=== PATIENT | male | born 1975 | race Caucasian/White ===

== ENCOUNTER 2017-01-18 10:36 | Emergency (ER) | payer MEDICARE, OTHER ==
[2017-01-18 10:46] VITALS: TEMP 98.1
[2017-01-18] MEDS ORDERED: IPRATROPIUM-ALBUTEROL 3 ML NEB INHALATION STA (11:45)
--- NOTE | 2017-01-18 12:21 | XR ---
EXAMINATION TYPE: XR chest 2V DATE OF EXAM: 01/18/2017 COMPARISON: 11/16/2015 INDICATION: Difficulty breathing chest pressure TECHNIQUE: Frontal and lateral views of the chest are obtained. FINDINGS: The heart size is normal. The pulmonary vasculature is normal. The lungs are clear. IMPRESSION: 1. No acute pulmonary process.
[2017-01-18 12:22] LABS: Basophils # (A) 0.1 k/uL (0-0.2); Basophils % (A) 0 %; CH 29.4; CHCM 34.1; Eosinophils % (A) 0 %; HCT 43.7 % (39.0-53.0); HDW 2.41; HGB 14.4 gm/dL (13.0-17.5); Luc # (Auto) 0.14; Luc % (Auto) 1; Lymphocytes # (A) 2.6 k/uL (1.0-4.8); Lymphocytes % (A) 20 %; MCH 28.4 pg (25.0-35.0); MCHC 32.9 g/dL (31.0-37.0); MCV 86.4 fL (80.0-100.0); Mean Platelet Volume 6.7; Monocytes # (A) 0.7 k/uL (0-1.0); Monocytes % (A) 5 %; Neutrophils # (A) 9.5 k/uL (1.3-7.7); Neutrophils % (A) 73 %; RBC 5.06 m/uL (4.30-5.90); RDW 13.4 % (11.5-15.5); WBC 12.9 k/uL (3.8-10.6); WBC (Perox) 12.84
[2017-01-18 12:35] LABS: ALT 43 U/L (21-72); AST 22 U/L (17-59); Alkaline Phosphatase 89 U/L (38-126); Anion Gap 12 mmol/L; Blood Urea Nitrogen 12 mg/dL (9-20); Calcium 9.4 mg/dL (8.4-10.2); Carbon Dioxide 26 mmol/L (22-30); Chloride 101 mmol/L (98-107); Glucose 92 mg/dL (74-99); Non-African American GFR(MDRD) >60 (>60 ml/min/1.73 sqM); Potassium 4.3 mmol/L (3.5-5.1); Sodium 139 mmol/L (137-145); Total Bilirubin 1.5 mg/dL (0.2-1.3); Total Protein 7.7 g/dL (6.3-8.2)
[2017-01-18 12:43] LABS: Partial Thromboplastin Time 24.8 sec (22.0-30.0); Prothrombin Time 10.5 sec (9.0-12.0)
[2017-01-18 12:50] LABS: Creatine Kinase 70 U/L (55-170)
[2017-01-18 13:03] LABS: Creatine Kinase MB <0.2 ng/mL (0.0-2.4); Troponin I <0.012 ng/mL (0.000-0.034)
--- NOTE | 2017-01-18 14:06 | ED ---
SOB HPI - General Chief Complaint: Shortness of Breath Stated Complaint: hypertension/sob Time Seen by Provider: 01/18/17 11:38 Source: patient Mode of arrival: ambulatory Limitations: no limitations - History of Present Illness Initial Comments: This 41-year-old white male presents with with the complaint of some shortness of breath. The onset occurred this morning. He is had a slight cough but no production. He denies any fevers or chills. He denies any leg pain or swelling or history of DVT or PE. There has been no chest pain. He relates a significant cardiac history. He apparently has had 2 or 3 myocardial infarctions and 5 stents since the age of 34. He is had atypical presentations for his previous cardiac events as well. He apparently went into cardiac arrest last year. He denies any other complaints or modifying factors. He denies any history of asthma or COPD. He quit smoking somewhat recently. - Related Data Home Medications Medication Instructions Recorded Confirmed Hydrocodone/Acetaminophen [[place] 2 tab PO QID 04/28/14 01/18/17 10-325] Cholecalciferol [Vitamin D3] 2,000 unit PO DAILY 11/16/15 01/18/17 Lisinopril [Zestril] 5 mg PO DAILY 11/16/15 01/18/17 Ranitidine HCl [Zantac] 300 mg PO BID 01/18/17 01/18/17 Rosuvastatin Calcium [Crestor] 5 mg PO HS 01/18/17 01/18/17 Previous Rx's Medication Instructions Recorded Aspirin 325 mg PO DAILY #30 tab 04/30/14 ALPRAZolam [Xanax] 0.5 mg PO TID PRN #60 tablet 07/16/15 Nitroglycerin Sl Tabs [Nitrostat] 0.4 mg SUBLINGUAL Q5M PRN #60 tab 07/16/15 Prasugrel [Effient] 10 mg PO DAILY #30 tab 07/16/15 Albuterol Sulfate [Proair Hfa] 1 - 2 puff INHALATION Q6HR PRN #1 01/18/17 inhaler Allergies Allergy/AdvReac Type Severity Reaction Status Date / Time amoxicillin [Amoxicillin] Allergy yeast Verified 01/18/17 12:01 infection Review of Systems ROS Statement: Those systems with pertinent positive or pertinent negative responses have been documented in the HPI. ROS Other: All systems not noted in ROS Statement are negative. Past Medical History Past Medical History: Coronary Artery Disease (CAD), Chest Pain / Angina, GERD/ Reflux, Hypertension, Myocardial Infarction ([place]), Osteoarthritis (OA) Additional Past Medical History / Comment(s): 07-14-15 admitted with stemi, cardiac arrest v-fib. other past med hx includes: KIDNEY STONES, DDD, PAST WORK INJURY 800 POUND I BEAM DROPPED ON PT- BROKEN BACK.BUT PT REFUSED SX, PT STATED THAT PER AN MRI HE HAD THAT NOW THERE ARE 3 TUMORS GROWING IN AREA OF INJURY? . Last Myocardial Infarction Date:: 2010, 07-14-15 History of Any Multi-Drug Resistant Organisms: None Reported Past Surgical History: Heart Catheterization With Stent Additional Past Surgical History / Comment(s): Two stents in 2010 and re-done 2013. 07-14-15 stent to rca Past Anesthesia/Blood Transfusion Reactions: No Reported Reaction Additional Past Anesthesia/Blood Transfusion Reaction / Comment(s): CLAUSTERPHOBIA Date of Last Stent Placement:: 2013 Past Psychological History: ADD/ADHD, Anxiety, Depression Smoking Status: Former smoker Past Alcohol Use History: None Reported Past Drug Use History: None Reported - Past Family History Father Family Medical History: Coronary Artery Disease (CAD), Hyperlipidemia, Myocardial Infarction (CO) Additional Family Medical History / Comment(s): Had 3 triple bypass surg Mother Family Medical History: Coronary Artery Disease (CAD) Additional Family Medical History / Comment(s): History of stents General Exam - General Exam Comments Initial Comments: GENERAL: The patient is well nourished and well hydrated. VITAL SIGNS: Heart rate, blood pressure, respiratory rate reviewed as recorded in nurse's notes. EYES: Pupils are round and reactive. Extraocular movements are intact. No conjunctival / lid redness or swelling. ENT: No external evidence of injury, swelling, or ecchymosis. Airway is patent. Throat is clear. NECK: Nontender. No swelling or evidence of injury. No subcutaneous emphysema. Trachea is midline. No thyroid mass. HEART: Regular rate and rhythm. Good peripheral pulses. LUNGS/CHEST: Breath sounds clear and equal bilaterally. No rales, rhonchi, or wheezes. No ecchymosis, subcutaneous emphysema, or tenderness. ABDOMEN: Abdomen soft without tenderness. No palpable masses or organomegaly. No peritoneal signs. No abdominal wall swelling or ecchymosis. EXTREMITIES: No extremity tenderness. Normal muscle tone and function. No thoracolumbar tenderness. NEUROLOGIC: Sensation is grossly intact. Cranial nerve exam reveals face is symmetrical, tongue is midline, speech is clear. SKIN: No abrasions or ecchymosis is noted. No induration or masses noted. PSYCHIATRIC: Alert and oriented. Appropriate behavior and judgment. Limitations: no limitations Course Vital Signs 01/18/17 01/18/17 01/18/17 10:42 12:19 12:32 Temperature 98.1 F Pulse Rate 63 56 L 62 Respiratory 20 Rate Blood Pressure 143/84 O2 Sat by Pulse 99 Oximetry Medical Decision Making - Medical Decision Making The patient was seen and examined. All diagnostics were reviewed. EKG shows a sinus bradycardia at a rate of 55. No acute ST-T wave changes are identified. The SD interval is 136, the QRS duration is 96, and the QTc interval is 399. He received a breathing treatment with moderate relief. He also had a chest x- ray which did not show any acute processes. The laboratory is essentially unremarkable. The exact cause of his dizziness he is not definitively determined. Possibility of a early upper is poor infection or bronchitis early is possible. The possibility of an atypical cardiac ischemia certainly is possible as well. He was offered admission to the hospital, especially in light of his significant cardiac history, for further cardiac workup. He refuses. Risks and benefits were discussed with him and his . He states that he would still not want to stay in the hospital but will return if his symptoms do worsen. He is alert and lucid and medical decision-making is intact to refuse further treatment to rule out a cardiac etiology. He leaves in no identifiable distress. - Lab Data Result diagrams: 01/18/17 12:07 01/18/17 12:07 Lab Results 01/18/17 01/18/17 01/18/17 Range/Units 12:07 12:07 12:07 WBC 12.9 H (3.8-10.6) k/uL RBC 5.06 (4.30-5.90) m/uL Hgb 14.4 (13.0-17.5) gm/dL Hct 43.7 (39.0-53.0) % MCV 86.4 (80.0-100.0) fL MCH 28.4 (25.0-35.0) pg MCHC 32.9 (31.0-37.0) g/dL RDW 13.4 (11.5-15.5) % Plt Count 338 (150-450) k/uL Neutrophils % 73 % Lymphocytes % 20 % Monocytes % 5 % Eosinophils % 0 % Basophils % 0 % Neutrophils # 9.5 H (1.3-7.7) k/uL Lymphocytes # 2.6 (1.0-4.8) k/uL Monocytes # 0.7 (0-1.0) k/uL Eosinophils # 0.0 (0-0.7) k/uL Basophils # 0.1 (0-0.2) k/uL PT (9.0-12.0) sec INR (<1.2) APTT (22.0-30.0) sec D-Dimer (<0.60) mg/L FEU Sodium 139 (137-145) mmol/L Potassium 4.3 (3.5-5.1) mmol/L Chloride 101 (98-107) mmol/L Carbon Dioxide 26 (22-30) mmol/L Anion Gap 12 mmol/L BUN 12 (9-20) mg/dL Creatinine 0.74 (0.66-1.25) mg/dL Est GFR (MDRD) Af Amer >60 (>60 ml/min/1.73 sqM) Est GFR (MDRD) Non-Af >60 (>60 ml/min/1.73 sqM) Glucose 92 (74-99) mg/dL Calcium 9.4 (8.4-10.2) mg/dL Total Bilirubin 1.5 H (0.2-1.3) mg/dL AST 22 (17-59) U/L ALT 43 (21-72) U/L Alkaline Phosphatase 89 (38-126) U/L Total Creatine Kinase 70 (55-170) U/L CK-MB (CK-2) <0.2 (0.0-2.4) ng/mL CK-MB (CK-2) Rel Index Troponin I <0.012 (0.000-0.034) ng/mL NT-Pro-B Natriuret Pep pg/mL Total Protein 7.7 (6.3-8.2) g/dL Albumin 4.7 (3.5-5.0) g/dL 01/18/17 01/18/17 Range/Units 12:07 12:07 WBC (3.8-10.6) k/uL RBC (4.30-5.90) m/uL Hgb (13.0-17.5) gm/dL Hct (39.0-53.0) % MCV (80.0-100.0) fL MCH (25.0-35.0) pg MCHC (31.0-37.0) g/dL RDW (11.5-15.5) % Plt Count (150-450) k/uL Neutrophils % % Lymphocytes % % Monocytes % % Eosinophils % % Basophils % % Neutrophils # (1.3-7.7) k/uL Lymphocytes # (1.0-4.8) k/uL Monocytes # (0-1.0) k/uL Eosinophils # (0-0.7) k/uL Basophils # (0-0.2) k/uL PT 10.5 (9.0-12.0) sec INR 1.0 (<1.2) APTT 24.8 (22.0-30.0) sec D-Dimer <0.17 (<0.60) mg/L FEU Sodium (137-145) mmol/L Potassium (3.5-5.1) mmol/L Chloride (98-107) mmol/L Carbon Dioxide (22-30) mmol/L Anion Gap mmol/L BUN (9-20) mg/dL Creatinine (0.66-1.25) mg/dL Est GFR (MDRD) Af Amer (>60 ml/min/1.73 sqM) Est GFR (MDRD) Non-Af (>60 ml/min/1.73 sqM) Glucose (74-99) mg/dL Calcium (8.4-10.2) mg/dL Total Bilirubin (0.2-1.3) mg/dL AST (17-59) U/L ALT (21-72) U/L Alkaline Phosphatase (38-126) U/L Total Creatine Kinase (55-170) U/L CK-MB (CK-2) (0.0-2.4) ng/mL CK-MB (CK-2) Rel Index Troponin I (0.000-0.034) ng/mL NT-Pro-B Natriuret Pep 23 pg/mL Total Protein (6.3-8.2) g/dL Albumin (3.5-5.0) g/dL Disposition Clinical Impression: Dyspnea, History of coronary artery disease Disposition: HOME SELF-CARE Condition: Good Instructions: Dyspnea (ED) Prescriptions: Albuterol Sulfate [Proair Hfa] 1 - 2 puff INHALATION Q6HR PRN #1 inhaler PRN Reason: Shortness Of Breath Or Wheezing Referrals: Gilberto Figueroa MD [Primary Care Provider] - 1-2 days Time of Disposition: 14:05
[2017-01-18 14:17] VITALS: BP 128/74; PULSE 74; RESP 16
== END 2017-01-18 14:16 | disposition home or self-care (01) ==
LOC: EC 10:36
DX: R06.00 Dyspnea, unspecified (principal); I25.10 Atherosclerotic heart disease of native coronary artery without angina pectoris; K21.9 Gastro-esophageal reflux disease without esophagitis; I10 Essential (primary) hypertension; I25.2 Old myocardial infarction; Z87.891 Personal history of nicotine dependence; Z88.0 Allergy status to penicillin; Z95.5 Presence of coronary angioplasty implant and graft; Z79.899 Other long term (current) drug therapy
CPT/HCPCS: 36415; 71020; 80053; 82550; 82553; 83880; 84484; 85025; 85379; 85610; 85730; 87040; 93005; 94640; 99285

== ENCOUNTER 2017-09-02 17:42 | Emergency (ER) | payer MEDICARE, OTHER ==
[2017-09-02] MEDS ORDERED: SODIUM CHLORIDE 0.9% 1,000 ML IV STA (18:04)
--- NOTE | 2017-09-02 18:10 | ED ---
General Adult HPI <Rodríguez Toledo - Last Filed: 09/02/17 21:38> - General Source: patient, RN notes reviewed Mode of arrival: ambulatory Limitations: no limitations <Tawny Lal - Last Filed: 09/02/17 21:39> - General Chief complaint: Shortness of Breath Stated complaint: MARK Time Seen by Provider: 09/02/17 17:58 - History of Present Illness Initial comments: 42-year-old male presents to the emergency department with a chief complaint of shortness of breath and chest heaviness. Patient has a history of ND at age 34. Patient states she's had some shortness of breath for the last week or so. He states today it seemed to get worse. He states just hasn't irritation into his chest and describes it as a heaviness. He states when he had an ND and issues with breathing as well so he was concerned. He states he has been taking his medications as prescribed. He denies any nausea vomiting or sweating. He does admit to history of acid reflux and states he has had some burning with that as well. They were concerned due to his symptoms without that he should be seen. Patient denies any recent fever, chills, back pain, abdominal pain, nausea vomiting, numbness or tingling, dysuria or hematuria, constipation or diarrhea, headaches or visual changes, or any other current symptoms. (Tawny Lal) - Related Data Home Medications Medication Instructions Recorded Confirmed Hydrocodone/Acetaminophen [[place] 1 tab PO Q4H PRN 04/28/14 09/02/17 10-325] Lisinopril [Zestril] 5 mg PO QAM 11/16/15 09/02/17 Aspirin 325 mg PO QAM 09/02/17 09/02/17 Pantoprazole Sodium [Protonix] 40 mg PO BID 09/02/17 09/02/17 Prasugrel [Effient] 10 mg PO QAM 09/02/17 09/02/17 Rosuvastatin [Crestor] 10 mg PO HS 09/02/17 09/02/17 Allergies Allergy/AdvReac Type Severity Reaction Status Date / Time amoxicillin [Amoxicillin] Allergy yeast Verified 09/02/17 18:06 infection Review of Systems ROS Other: All systems not noted in ROS Statement are negative. <Rodríguez Toledo - Last Filed: 09/02/17 21:38> ROS Other: All systems not noted in ROS Statement are negative. <Tawny Lal - Last Filed: 09/02/17 21:39> ROS Statement: Those systems with pertinent positive or pertinent negative responses have been documented in the HPI. Past Medical History Past Medical History: Coronary Artery Disease (CAD), Chest Pain / Angina, GERD/ Reflux, Hypertension, Myocardial Infarction (ND), Osteoarthritis (OA) Additional Past Medical History / Comment(s): 07-14-15 admitted with stemi, cardiac arrest v-fib. other past med hx includes: KIDNEY STONES, DDD, PAST WORK INJURY 800 POUND I BEAM DROPPED ON PT- BROKEN BACK.BUT PT REFUSED SX, PT STATED THAT PER AN MRI HE HAD THAT NOW THERE ARE 3 TUMORS GROWING IN AREA OF INJURY? . Last Myocardial Infarction Date:: 2010, 07-14-15 History of Any Multi-Drug Resistant Organisms: None Reported Past Surgical History: Heart Catheterization With Stent Additional Past Surgical History / Comment(s): Two stents in 2010 and re-done 2013. 07-14-15 stent to rca Past Anesthesia/Blood Transfusion Reactions: No Reported Reaction Additional Past Anesthesia/Blood Transfusion Reaction / Comment(s): CLAUSTERPHOBIA Date of Last Stent Placement:: 2013 Past Psychological History: ADD/ADHD, Anxiety, Depression Smoking Status: Former smoker Past Alcohol Use History: None Reported Past Drug Use History: None Reported - Past Family History Father Family Medical History: Coronary Artery Disease (CAD), Hyperlipidemia, Myocardial Infarction (ND) Additional Family Medical History / Comment(s): Had 3 triple bypass surg Mother Family Medical History: Coronary Artery Disease (CAD) Additional Family Medical History / Comment(s): History of stents <Tawny Lal - Last Filed: 09/02/17 21:39> General Exam <Rodríguez Toledo - Last Filed: 09/02/17 21:38> Limitations: no limitations <Tawny Lal - Last Filed: 09/02/17 21:39> - General Exam Comments Initial Comments: General: The patient is awake and alert, in no distress, and does not appear acutely ill. Eye: Pupils are equal, round and reactive to light, extra-ocular movements are intact; there is normal conjunctiva bilaterally. No signs of icterus. Ears, nose, mouth and throat: There are moist mucous membranes and no oral lesions. Neck: The neck is supple, there is no tenderness. Cardiovascular: There is a regular rate and rhythm. No murmur, rub or gallop is appreciated. Respiratory: Lungs are clear to auscultation, respirations are non-labored, breath sounds are equal. No wheezes, stridor, rales, or rhonchi. Gastrointestinal: Soft, non-distended, non-tender abdomen without masses or organomegaly noted. There is no rebound or guarding present. No CVA tenderness. Bowel sounds are unremarkable. Back: There is no tenderness to palpation in the midline. There is no obvious deformity. No rashes noted. Musculoskeletal: Normal ROM, no tenderness, There is no pedal edema. There is no calf tenderness or swelling. Sensation intact. Pulses equal bilaterally 2+. Neurological: CN II-XII intact, There are no obvious motor or sensory deficits. Coordination appears grossly intact. Speech is normal. Skin: Skin is warm and dry and no rashes or lesions are noted. Psychiatric: Cooperative, appropriate mood & affect, normal judgment. (Tawny Lal) Course <Rodírguez Toledo - Last Filed: 09/02/17 21:38> <Tawny Lal - Last Filed: 09/02/17 21:39> Vital Signs 09/02/17 09/02/17 17:51 19:15 Temperature 97.3 F L Pulse Rate 72 59 L Respiratory 18 18 Rate Blood Pressure 138/85 111/60 O2 Sat by Pulse 98 96 Oximetry - Reevaluation(s) Reevaluation #1: 09/02/17 21:38 PA supervision: I did do a [id number] evaluation patient did discuss the findings the patient and his . Patient presentation with respective shortness of breath is very similar to when he had his heart attack in the past. Some of the symptoms are similar with his has with a respiratory infection. The patient has had intermittent episodes of chest discomfort. He currently is pain-free he will be admitted for evaluation of chest pain. I did discuss the case with (Rodríguez Toledo) EKG Findings - EKG Comments: EKG Findings:: normal sinus rhythm 71 bpm, normal axis, no atopy, no S-T depressions or elevations, incomplete right bundle branch block <Tawny Lal - Last Filed: 09/02/17 21:39> Medical Decision Making - Lab Data Result diagrams: 09/02/17 18:24 09/02/17 18:24 <Rodríguez Toledo - Last Filed: 09/02/17 21:38> - Lab Data Result diagrams: 09/02/17 18:24 09/02/17 18:24 - Radiology Data Radiology results: report reviewed, image reviewed <Tawny Lal - Last Filed: 09/02/17 21:39> - Medical Decision Making 42-year-old male presents to the emergency department with a chief complaint of shortness of breath with chest heaviness. At this time patient's lab work has been reviewed. At this time patient's history with risk factors concerns for possible cardiac cause. We will admit the patient for continued care. We discussed this with the patient for admission. Patient is agreement this plan. All questions have been answered. Patient will be admitted for cardiac rule out at this time. (Tawny Lal) - Lab Data Lab Results 09/02/17 09/02/17 09/02/17 Range/Units 18:24 18:24 18:24 WBC 10.0 (3.8-10.6) k/uL RBC 5.10 (4.30-5.90) m/uL Hgb 14.0 (13.0-17.5) gm/dL Hct 42.2 (39.0-53.0) % MCV 82.6 (80.0-100.0) fL MCH 27.4 (25.0-35.0) pg MCHC 33.2 (31.0-37.0) g/dL RDW 13.4 (11.5-15.5) % Plt Count 334 (150-450) k/uL Neutrophils % 66 % Lymphocytes % 27 % Monocytes % 5 % Eosinophils % 1 % Basophils % 0 % Neutrophils # 6.6 (1.3-7.7) k/uL Lymphocytes # 2.7 (1.0-4.8) k/uL Monocytes # 0.5 (0-1.0) k/uL Eosinophils # 0.1 (0-0.7) k/uL Basophils # 0.0 (0-0.2) k/uL PT (9.0-12.0) sec INR (<1.2) APTT (22.0-30.0) sec D-Dimer (<0.60) mg/L FEU Sodium 143 (137-145) mmol/L Potassium 3.9 (3.5-5.1) mmol/L Chloride 103 (98-107) mmol/L Carbon Dioxide 26 (22-30) mmol/L Anion Gap 14 mmol/L BUN 12 (9-20) mg/dL Creatinine 0.70 (0.66-1.25) mg/dL Est GFR (CKD-EPI)AfAm >90 (>60 ml/min/1.73 sqM) Est GFR (CKD-EPI)NonAf >90 (>60 ml/min/1.73 sqM) Glucose 82 (74-99) mg/dL Calcium 9.8 (8.4-10.2) mg/dL Magnesium 1.8 (1.6-2.3) mg/dL Total Bilirubin 1.9 H (0.2-1.3) mg/dL AST 28 (17-59) U/L ALT 39 (21-72) U/L Alkaline Phosphatase 92 (38-126) U/L Total Creatine Kinase 79 (55-170) U/L CK-MB (CK-2) <0.2 (0.0-2.4) ng/mL CK-MB (CK-2) Rel Index Troponin I <0.012 (0.000-0.034) ng/mL Total Protein 7.8 (6.3-8.2) g/dL Albumin 4.8 (3.5-5.0) g/dL Amylase 45 (30-110) U/L Lipase 37 (23-300) U/L 09/02/17 Range/Units 18:24 WBC (3.8-10.6) k/uL RBC (4.30-5.90) m/uL Hgb (13.0-17.5) gm/dL Hct (39.0-53.0) % MCV (80.0-100.0) fL MCH (25.0-35.0) pg MCHC (31.0-37.0) g/dL RDW (11.5-15.5) % Plt Count (150-450) k/uL Neutrophils % % Lymphocytes % % Monocytes % % Eosinophils % % Basophils % % Neutrophils # (1.3-7.7) k/uL Lymphocytes # (1.0-4.8) k/uL Monocytes # (0-1.0) k/uL Eosinophils # (0-0.7) k/uL Basophils # (0-0.2) k/uL PT 10.6 (9.0-12.0) sec INR 1.1 (<1.2) APTT 25.0 (22.0-30.0) sec D-Dimer <0.17 (<0.60) mg/L FEU Sodium (137-145) mmol/L Potassium (3.5-5.1) mmol/L Chloride (98-107) mmol/L Carbon Dioxide (22-30) mmol/L Anion Gap mmol/L BUN (9-20) mg/dL Creatinine (0.66-1.25) mg/dL Est GFR (CKD-EPI)AfAm (>60 ml/min/1.73 sqM) Est GFR (CKD-EPI)NonAf (>60 ml/min/1.73 sqM) Glucose (74-99) mg/dL Calcium (8.4-10.2) mg/dL Magnesium (1.6-2.3) mg/dL Total Bilirubin (0.2-1.3) mg/dL AST (17-59) U/L ALT (21-72) U/L Alkaline Phosphatase (38-126) U/L Total Creatine Kinase (55-170) U/L CK-MB (CK-2) (0.0-2.4) ng/mL CK-MB (CK-2) Rel Index Troponin I (0.000-0.034) ng/mL Total Protein (6.3-8.2) g/dL Albumin (3.5-5.0) g/dL Amylase (30-110) U/L Lipase (23-300) U/L Disposition <Rodríguez Toledo - Last Filed: 09/02/17 21:38> Decision Date: 09/02/17 Decision Time: 21:06 <Tawny Lal - Last Filed: 09/02/17 21:39> Clinical Impression: Unstable angina Disposition: ADMITTED IP TO THIS [facility] Condition: Stable Referrals: Gilberto Figueroa MD [REFERRING] - 1-2 days
[2017-09-02 18:33] LABS: Basophils % (A) 0 %; Eosinophils # (A) 0.1 k/uL (0-0.7); Eosinophils % (A) 1 %; HCT 42.2 % (39.0-53.0); Lymphocytes # (A) 2.7 k/uL (1.0-4.8); Lymphocytes % (A) 27 %; MCH 27.4 pg (25.0-35.0); MCHC 33.2 g/dL (31.0-37.0); MCV 82.6 fL (80.0-100.0); Mean Platelet Volume 6.7; Monocytes # (A) 0.5 k/uL (0-1.0); Monocytes % (A) 5 %; Neutrophils # (A) 6.6 k/uL (1.3-7.7); Neutrophils % (A) 66 %; Platelet Count 334 k/uL (150-450); RDW 13.4 % (11.5-15.5)
[2017-09-02 18:44] LABS: ALT 39 U/L (21-72); AST 28 U/L (17-59); Albumin 4.8 g/dL (3.5-5.0); Alkaline Phosphatase 92 U/L (38-126); Amylase 45 U/L (30-110); Anion Gap 14 mmol/L; Blood Urea Nitrogen 12 mg/dL (9-20); Calcium 9.8 mg/dL (8.4-10.2); Carbon Dioxide 26 mmol/L (22-30); Chloride 103 mmol/L (98-107); D-Dimer <0.17 mg/L FEU (<0.60); Glucose 82 mg/dL (74-99); Lipase 37 U/L (23-300); Magnesium 1.8 mg/dL (1.6-2.3); Potassium 3.9 mmol/L (3.5-5.1); Sodium 143 mmol/L (137-145); Total Bilirubin 1.9 mg/dL (0.2-1.3); Total Protein 7.8 g/dL (6.3-8.2)
[2017-09-02 18:47] LABS: Creatine Kinase 79 U/L (55-170)
[2017-09-02 18:50] LABS: INR 1.1 (<1.2); Prothrombin Time 10.6 sec (9.0-12.0)
[2017-09-02 19:00] LABS: Creatine Kinase MB <0.2 ng/mL (0.0-2.4); Troponin I <0.012 ng/mL (0.000-0.034)
[2017-09-02] MEDS: ASPIRIN 81 MG PO STA ×2 (19:14→19:20)
--- NOTE | 2017-09-02 19:45 | XR ---
EXAMINATION TYPE: XR chest 2V DATE OF EXAM: 09/02/2017 COMPARISON: 02/18/2017 HISTORY: Chest pain TECHNIQUE: Frontal and lateral views of the chest are obtained. FINDINGS: There is no focal air space opacity, pleural effusion, or pneumothorax seen. The cardiac silhouette size is mildly enlarged. The osseous structures are intact. IMPRESSION: No acute cardiopulmonary process.
[2017-09-02] MEDS ORDERED: HYDROcodone/APAP 10-325MG 1 EACH TAB PO PRN (20:09)
[2017-09-02] MEDS ORDERED: PANTOPRAZOLE 40 MG TABLET PO SCH (21:00)
[2017-09-02] MEDS ORDERED: ATORVASTATIN 20 MG TAB PO SCH (21:00)
[2017-09-02] MEDS ORDERED: NITROGLYCERIN SL TABS 0.4 MG TAB SUBLINGUAL STA (21:14)
[2017-09-02] MEDS ORDERED: MORPHINE SULFATE 4 MG/ML SYRINGE IV STA (21:25)
[2017-09-02] MEDS ORDERED: NITROGLYCERIN SL TABS 0.4 MG TAB SUBLINGUAL PRN (21:40)
[2017-09-02] MEDS ORDERED: HEPARIN SODIUM,PORCINE 5,000 UNIT/ML 1 ML VIAL IV ONE (21:40)
[2017-09-02] MEDS ORDERED: SODIUM CHLORIDE 0.9% 1,000 ML IV SCH (21:45)
[2017-09-02] MEDS ORDERED: HEPARIN SOD,PORK IN 0.45% NACL 25,000 UNIT in 0.45% NACL 1 500ML.BAG IV SCH (21:45)
[2017-09-02 22:28] VITALS: BP 114/65; PULSE 58; RESP 20; TEMP 97.8
[2017-09-03] MEDS ORDERED: NITROGLYCERIN OINT 1 INCH/GM PACKET TOPICAL SCH
[2017-09-03] MEDS ORDERED: ASPIRIN 325 MG TAB PO SCH ×2 (09:00)
[2017-09-03] MEDS ORDERED: PRASUGREL 10 MG TAB PO SCH (09:00)
[2017-09-03] MEDS ORDERED: LISINOPRIL 5 MG TAB PO SCH (09:00)
== END 2017-09-02 22:10 | disposition other institution (70) ==
LOC: SUPCPDRO 17:42 → EC 17:42 → UNDOADMOB 21:37 → 3OBS 21:37 → EC 22:10
DX: I25.110 Atherosclerotic heart disease of native coronary artery with unstable angina pectoris (principal); I10 Essential (primary) hypertension; K21.9 Gastro-esophageal reflux disease without esophagitis; M19.90 Unspecified osteoarthritis, unspecified site; I25.2 Old myocardial infarction; Z87.891 Personal history of nicotine dependence; Z79.82 Long term (current) use of aspirin; Z79.899 Other long term (current) drug therapy; Z88.0 Allergy status to penicillin; Z95.818 Presence of other cardiac implants and grafts; Z82.49 Family history of ischemic heart disease and other diseases of the circulatory system
CPT/HCPCS: 36415; 71046; 80053; 82150; 82550; 82553; 83690; 83735; 84484; 85025; 85379; 85610; 85730; 93005; 96360; 96361; 99285

== ENCOUNTER 2017-10-17 13:38 | Emergency (ER) | payer MEDICARE, OTHER ==
--- NOTE | 2017-10-17 15:59 | ED ---
Extremity Problem HPI - General Chief complaint: Extremity Problem,Nontraumatic Stated complaint: pain from groin to knee Time Seen by Provider: 10/17/17 15:34 Source: patient, RN notes reviewed Mode of arrival: ambulatory Limitations: no limitations - History of Present Illness Initial comments: This is a 42-year-old male who presents to the emergency department with chief complaint of right lower extremity pain. Patient states that at approximately 10:30 this morning he was sitting in his truck and felt a sudden onset of sharp pain in his lateral right thigh. He states that the pain was so intense that he dropped his phone and felt like he was going to be sick. He states that since that time the pain has progressed up to his groin. Denies any scrotal or testicular pain or swelling. He states that the lower half of his right lower extremity now feels numb. He states "it just doesn't feel right." Patient states that he has a history of 3 myocardial infarctions and multiple venous thromboses. He states that he is currently on Effient and has been on that for 2 years. He also reports a history of chronic low back issues. 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 He denies any injuries or trauma. Denies fever, chills, chest pain, shortness of breath, abdominal pain, nausea or vomiting, constipation or diarrhea, headache or vision changes. - Related Data Home Medications Medication Instructions Recorded Confirmed Hydrocodone/Acetaminophen [[place] 1 tab PO Q4H PRN 04/28/14 09/02/17 10-325] Lisinopril [Zestril] 5 mg PO QAM 11/16/15 09/02/17 Aspirin 325 mg PO QAM 09/02/17 09/02/17 Pantoprazole Sodium [Protonix] 40 mg PO BID 09/02/17 09/02/17 Prasugrel [Effient] 10 mg PO QAM 09/02/17 09/02/17 Rosuvastatin [Crestor] 10 mg PO HS 09/02/17 09/02/17 Previous Rx's Medication Instructions Recorded predniSONE 20 mg PO BID #8 tab 10/17/17 Allergies Allergy/AdvReac Type Severity Reaction Status Date / Time amoxicillin [Amoxicillin] Allergy yeast Verified 10/17/17 13:58 infection Review of Systems ROS Statement: Those systems with pertinent positive or pertinent negative responses have been documented in the HPI. ROS Other: All systems not noted in ROS Statement are negative. Past Medical History Past Medical History: Coronary Artery Disease (CAD), Chest Pain / Angina, GERD/ Reflux, Hypertension, Myocardial Infarction (CT), Osteoarthritis (OA) Additional Past Medical History / Comment(s): 07-14-15 admitted with stemi, cardiac arrest v-fib. other past med hx includes: KIDNEY STONES, DDD, PAST WORK INJURY 800 POUND I BEAM DROPPED ON PT- BROKEN BACK.BUT PT REFUSED SX, PT STATED THAT PER AN MRI HE HAD THAT NOW THERE ARE 3 TUMORS GROWING IN AREA OF INJURY Last Myocardial Infarction Date:: 2010, 07-14-15 History of Any Multi-Drug Resistant Organisms: None Reported Past Surgical History: Heart Catheterization With Stent Additional Past Surgical History / Comment(s): Two stents in 2010 and re-done 2013. 07-14-15 stent to rca Past Anesthesia/Blood Transfusion Reactions: No Reported Reaction Additional Past Anesthesia/Blood Transfusion Reaction / Comment(s): CLAUSTERPHOBIA Date of Last Stent Placement:: 2013 Past Psychological History: ADD/ADHD, Anxiety, Depression Smoking Status: Former smoker Past Alcohol Use History: None Reported Past Drug Use History: None Reported - Past Family History Father Family Medical History: Coronary Artery Disease (CAD), Hyperlipidemia, Myocardial Infarction (CT) Additional Family Medical History / Comment(s): Had 3 triple bypass surg Mother Family Medical History: Coronary Artery Disease (CAD) Additional Family Medical History / Comment(s): History of stents General Exam - General Exam Comments Initial Comments: General: Awake and alert, well-developed; in no apparent distress. HEENT: Head atraumatic, normocephalic. Pupils are equal, round and reactive to light. Extraocular movements intact. Oropharynx moist without erythema or exudate. Neck: Supple. Normal ROM. Cardiovascular: Regular rate and rhythm. No murmurs, rubs or gallops. Chest symmetrical. Respiratory: Lungs clear to auscultation bilaterally. No wheezes, rales or rhonchi. Normal respiratory effort with no use of accessory muscles. Musculoskeletal: Normal ROM, no tenderness bilateral upper and lower extremities. Ambulating normally. No swelling, erythema, contusions or abrasions noted to right lower extremity. Sensation is intact. Pedal and femoral pulses are 2+ equal and palpable bilaterally. No tenderness on palpation of paraspinal muscles or lumbar vertebra. Patellar reflexes are brisk. Skin: [place], warm and dry without rashes or lesions. Neurological: Alert and oriented x3. CN II-XII grossly intact. Speech is fluent and answers are appropriate. No focal neuro deficits. Psychiatric: Normal mood and affect. No overt signs of depression or anxiety noted. Limitations: no limitations Course Vital Signs 10/17/17 13:54 Temperature 98.1 F Pulse Rate 75 Respiratory 18 Rate Blood Pressure 154/88 O2 Sat by Pulse 95 Oximetry Medical Decision Making - Medical Decision Making This is a 42-year-old male who presents to the emergency department with chief complaint of right lower extremity pain. Patient reports acute onset of lateral right thigh pain that has progressed to his groin and distal extremity. Patellar reflexes are brisk. Sensation is intact. Pedal and femoral pulses are 2+ equal and palpable bilaterally. There is no tenderness on palpation of lumbar spine or right lower extremity. This case was discussed with attending physician, Dr. Shipman who also evaluated the patient. Recommended computed tomography scan of lumbar spine. Computed tomography scan of the lumbar spine without contrast revealed lateral recess stenosis of L5 to S1. These results were discussed with Dr. Shipman. Based on dermatome mapping, impingement on this nerve would cause pain on the lateral thigh. Patient given a dose of steroids while in the emergency department. He will be discharged home with a prescription for the complete dose of prednisone. Recommended following up with Dr. Lakhani, however patient states that he has a back doctor of his own that he sees on [address]. Patient's vital signs are stable and he is in no acute distress. He'll be discharged home at this time. He is in agreement with plan and voices understanding. All questions were answered. - Radiology Data Radiology results: report reviewed CT lumbar spine without contrast impression: Mild degenerative disc space narrowing with disc bulging. Suspect mild right lateral recess stenosis at L5 to S1. Disposition Clinical Impression: Stenosis of lateral recess of lumbar spine Disposition: HOME SELF-CARE Condition: Good Instructions: Lumbar Radiculopathy (ED) Additional Instructions: Please take medications as prescribed. Please follow up with your back/ neurology doctor within 1-2 days. May follow up with Dr. Lakhani if unable to follow-up with your doctor. Please follow up with primary care provider within 1-2 days. Return to emergency department if symptoms should worsen or any concerns arise. Prescriptions: predniSONE 20 mg PO BID #8 tab Is patient prescribed a controlled substance at d/c from ED?: No Referrals: Salvador Junior MD [Primary Care Provider] - 1-2 days Time of Disposition: 16:57
--- NOTE | 2017-10-17 16:42 | CT ---
EXAMINATION TYPE: CT lumbar spine wo con DATE OF EXAM: 10/17/2017 COMPARISON: NONE HISTORY: Pain down right leg. Low back pain. CT DLP: 1403.[address] of the lumbar spine was performed. Bone and soft tissue window settings are submitted as well as coronal and sagittal reconstructions. L1-L2: Normal disc space height. No disc herniation protrusion or central stenosis. No facet joint arthropathy. No evidence for foraminal encroachment. L2-L3: Normal disc space height. No disc herniation protrusion or central stenosis. No facet joint arthropathy. No evidence for foraminal encroachment. L3-L4: Normal disc space height. No disc herniation protrusion or central stenosis. No facet joint arthropathy. No evidence for foraminal encroachment. L4-L5: Mild degenerative disc space narrowing. Mild effacement ventral thecal sac. No herniation or c entral stenosis. Foramina are patent bilaterally. L5-S1: Mild degenerative disc space narrowing. Posterior disc bulge with partial encapsulating spur r esulting in disc endplate complex. Suspect a mild right lateral recess stenosis. No foraminal encroac hment. No paraspinal masses are identified. Lumbar segments are free if fracture. Disc endplate complex not ed at the T12-L1. IMPRESSION: 1. Mild degenerative disc space narrowing with disc bulging. Suspect mild right lateral recess stenos is at L5-S1. Correlate clinically.
[2017-10-17] MEDS ORDERED: KETOROLAC 30 MG/ML 1 ML VIAL IM STA (16:54)
[2017-10-17] MEDS ORDERED: predniSONE 50 MG TAB PO STA (16:54)
[2017-10-17 17:10] VITALS: BP 135/82; PULSE 72; RESP 16; TEMP 97.9
== END 2017-10-17 17:10 | disposition home or self-care (01) ==
LOC: EC 13:38
DX: M48.061 Spinal stenosis, lumbar region without neurogenic claudication (principal); I25.10 Atherosclerotic heart disease of native coronary artery without angina pectoris; I49.01 Ventricular fibrillation; K21.9 Gastro-esophageal reflux disease without esophagitis; I10 Essential (primary) hypertension; I25.2 Old myocardial infarction; Z95.5 Presence of coronary angioplasty implant and graft; Z87.891 Personal history of nicotine dependence; Z82.49 Family history of ischemic heart disease and other diseases of the circulatory system; Z79.899 Other long term (current) drug therapy; Z79.82 Long term (current) use of aspirin; Z88.0 Allergy status to penicillin
CPT/HCPCS: 99283; 96372; 72131; J1885; J7512

== ENCOUNTER → 2017-11-16 | Outpatient (CLI) | payer MEDICARE, OTHER ==
[2017-11-16 11:15] LABS: ALT 37 U/L (21-72); AST 23 U/L (17-59); Cholesterol 142 mg/dL (<200); HDL Cholesterol 38 mg/dL (40-60); LDL Cholesterol,Calculated 75 mg/dL (0-99); Triglycerides 143 mg/dL (<150)
== END | disposition home or self-care (01) ==
LOC: LABWHC1 10:18
PROVIDERS: ATTEND Internal Medicine Interventional Cardiology
DX: E78.2 Mixed hyperlipidemia (principal)
CPT/HCPCS: 36415; 80061; 84450; 84460

== ENCOUNTER 2019-06-24 23:48 | Emergency (ER) | payer MEDICARE, OTHER ==
[2019-06-25 00:02] VITALS: BP 104/70; PULSE 69; RESP 20; TEMP 97.9
== END 2019-06-25 00:48 | disposition left against medical advice (07) ==
LOC: EC 23:48
DX: S61.012A Laceration without foreign body of left thumb without damage to nail, initial encounter (principal); Z53.21 Procedure and treatment not carried out due to patient leaving prior to being seen by health care provider; X58.XXXA Exposure to other specified factors, initial encounter
CPT/HCPCS: 99499

== ENCOUNTER 2020-08-05 22:11 | Emergency (ER) | payer MEDICARE, OTHER ==
[2020-08-05 22:17] VITALS: BP 160/92; PULSE 76; RESP 18; TEMP 98.2
[2020-08-05] MEDS ORDERED: predniSONE 50 MG TAB PO STA (22:40)
[2020-08-05] MEDS ORDERED: MAG HYDROX/AL HYDROX/SIMETH 30 ML, HYOSCYAMINE ELIXIR 10 ML, LIDOCAINE VISCOUS 2% 10 ML PO STA ×3 (22:40)
--- NOTE | 2020-08-05 22:41 | ED ---
ENT HPI - General Chief complaint: ENT Stated complaint: ENT Time Seen by Provider: 08/05/20 22:25 Source: patient, family Mode of arrival: ambulatory Limitations: no limitations - History of Present Illness Initial comments: 45-year-old male presents to emergency department with chief complaint of congestion. Patient reports this occurs rather frequently for him every few months. Patient states he takes a daily antihistamine but this time it is not getting better. Patient reports his ears are "plugged up". He also reports some sinus congestion but denies any tenderness in the frontal maxillary sinuses. Denies any rhinorrhea. Does report a sore throat. Denies any cough or chest pain, shortness of breath fevers or chills. - Related Data Home Medications Medication Instructions Recorded Confirmed RX: lisinopriL [Zestril] 5 mg PO DAILY 11/16/15 09/04/19 RX: Pantoprazole Sodium [Protonix] 40 mg PO BID 09/02/17 09/04/19 RX: Prasugrel [Effient] 10 mg PO DAILY 09/02/17 09/04/19 RX: Rosuvastatin [Crestor] 10 mg PO HS 09/02/17 09/04/19 RX: Aspirin EC [Ecotrin Low Dose] 81 mg PO DAILY 09/04/19 09/04/19 RX: HYDROcodone/APAP 7.5-325MG 1 tab PO Q4H PRN 09/04/19 09/04/19 [[place] 7.5-325] RX: Ondansetron [Zofran] 4 mg PO Q8H PRN 09/04/19 09/04/19 Previous Rx's Medication Instructions Recorded RX: Tamsulosin [Flomax] 0.4 mg PO DAILY #30 cap 09/05/19 RX: predniSONE [Deltasone] 20 mg PO DAILY #3 tab 08/05/20 Allergies Allergy/AdvReac Type Severity Reaction Status Date / Time amoxicillin [Amoxicillin] Allergy thrush Verified 09/04/19 17:22 Review of Systems ROS Statement: Those systems with pertinent positive or pertinent negative responses have been documented in the HPI. ROS Other: All systems not noted in ROS Statement are negative. Past Medical History Past Medical History: Coronary Artery Disease (CAD), Chest Pain / Angina, GERD/Reflux, Hypertension, Myocardial Infarction (ID), Osteoarthritis (OA) Additional Past Medical History / Comment(s): 1-27-16 admitted with stemi,cardiac arrest v-fib. other past med hx includes: KIDNEY STONES, DDD, PAST WORK INJURY 800 POUND I BEAM DROPPED ON PT- BROKEN BACK.BUT PT REFUSED SX, PT STATED THAT PER AN MRI HE HAD THAT NOW THERE ARE 3 TUMORS GROWING IN AREA OF INJURY Last Myocardial Infarction Date:: 2010, 07-14-15 History of Any Multi-Drug Resistant Organisms: None Reported Past Surgical History: Heart Catheterization With Stent Additional Past Surgical History / Comment(s): Two stents in 2010 and re-done 2013. 07-14-15 stent to rca Past Anesthesia/Blood Transfusion Reactions: No Reported Reaction Additional Past Anesthesia/Blood Transfusion Reaction / Comment(s): CLAUSTERPHOBIA Date of Last Stent Placement:: 2013 Past Psychological History: ADD/ADHD, Anxiety, Depression, PTSD Smoking Status: Former smoker Past Alcohol Use History: None Reported Past Drug Use History: None Reported - Past Family History Father Family Medical History: Coronary Artery Disease (CAD), Hyperlipidemia, My ocardial Infarction (ID) Additional Family Medical History / Comment(s): Had 3 triple bypass surg Mother Family Medical History: Coronary Artery Disease (CAD) Additional Family Medical History / Comment(s): History of stents General Exam Limitations: no limitations General appearance: alert, in no apparent distress Head exam: Present: atraumatic, normocephalic, normal inspection Eye exam: Present: normal appearance, PERRL, EOMI Pupils: Present: normal accommodation ENT exam: Present: normal exam, normal oropharynx (Erica Belin. No changes to her voice. No pharyngeal erythema or tonsillar enlargement. No exudates.), mucous membranes moist, TM's normal bilaterally (Bilateral tympanic parents appear to be within normal limits. No pain with pulling on the auricle,Bilateral), normal external ear exam Neck exam: Present: normal inspection, full ROM. Absent: tenderness Respiratory exam: Present: normal lung sounds bilaterally. Absent: respiratory distress Cardiovascular Exam: Present: regular rate, normal rhythm, normal heart sounds Extremities exam: Present: normal inspection, full ROM, normal capillary refill. Absent: tenderness, pedal edema, joint swelling Back exam: Present: normal inspection, full ROM. Absent: tenderness, CVA tenderness (R), CVA tenderness (L) Course Vital Signs 08/05/20 22:15 Temperature 98.2 F Pulse Rate 76 Respiratory 18 Rate Blood Pressure 160/92 O2 Sat by Pulse 99 Oximetry Medical Decision Making - Medical Decision Making 45-year-old male presents emergency Department with chief complaint of congestion. On physical examination, patient has no focal neural deficits. ENT examination is unremarkable. Patient did request a GI cocktail to help with his GERD symptoms. On reevaluation, patient reports improvement in symptoms. Patient was started on a four-day course of prednisone. Return parameters were discussed with patient standing agreeable. Case discussed with Dr. [place]. Disposition Clinical Impression: Upper respiratory infection Disposition: HOME SELF-CARE Condition: Stable Instructions (If sedation given, give patient instructions): Upper Respiratory Infection (ED) Additional Instructions: Take prescribed medication as directed. Return to emergency department if symptoms worsen. Prescriptions: RX: predniSONE [Deltasone] 20 mg PO DAILY #3 tab Is patient prescribed a controlled substance at d/c from ED?: No Referrals: Salvador Junior MD [Primary Care Provider] - 1-2 days Time of Disposition: 22:41
== END 2020-08-05 23:05 | disposition home or self-care (01) ==
LOC: EC 22:11
DX: J06.9 Acute upper respiratory infection, unspecified (principal); K21.9 Gastro-esophageal reflux disease without esophagitis; I10 Essential (primary) hypertension; I25.2 Old myocardial infarction; I25.110 Atherosclerotic heart disease of native coronary artery with unstable angina pectoris; M19.90 Unspecified osteoarthritis, unspecified site; Z79.82 Long term (current) use of aspirin; Z79.899 Other long term (current) drug therapy; Z88.0 Allergy status to penicillin; Z95.5 Presence of coronary angioplasty implant and graft; Z87.891 Personal history of nicotine dependence
CPT/HCPCS: 99283; J7512

== ENCOUNTER 2020-08-06 11:08 | Observation (INO) | payer MEDICARE, OTHER ==
[2020-08-06 12:04] LABS: Appearance,Urine Clear (Clear); Bacteria,Urine Rare /hpf; Bilirubin,Urine Negative (Negative); Blood,Urine Small (Negative); Color,Urine Yellow; Glucose,Urine (UA) Negative (Negative); Ketones,Urine Negative (Negative); Leukocyte Esterase,Urine Negative (Negative); Mucus,Urine Moderate /hpf; Nitrite,Urine Negative (Negative); Protein,Urine Trace (Negative); RBC,Urine 7 /hpf (0-5); Specific Gravity,Urine 1.029 (1.001-1.035); Squamous Epithelial Cell,Urine <1 /hpf (0-4); Urobilinogen,Urine <2.0 mg/dL (<2.0); WBC,Urine <1 /hpf (0-5)
[2020-08-06 12:15] LABS: Partial Thromboplastin Time 24.4 sec (22.0-30.0); Prothrombin Time 10.6 sec (9.0-12.0)
[2020-08-06 12:23] LABS: ALT 20 U/L (4-49); AST 20 U/L (17-59); African American GFR (CKD) >90 (>60 ml/min/1.73 sqM); Albumin 4.8 g/dL (3.5-5.0); Alkaline Phosphatase 78 U/L (38-126); Anion Gap 11 mmol/L; Blood Urea Nitrogen 15 mg/dL (9-20); Calcium 9.8 mg/dL (8.4-10.2); Carbon Dioxide 27 mmol/L (22-30); Chloride 102 mmol/L (98-107); Glucose 110 mg/dL (74-99); Magnesium 1.7 mg/dL (1.6-2.3); Non-African American GFR(CKD) >90 (>60 ml/min/1.73 sqM); Potassium 3.8 mmol/L (3.5-5.1); Sodium 140 mmol/L (137-145); Total Bilirubin 1.3 mg/dL (0.2-1.3); Total Protein 7.6 g/dL (6.3-8.2); Urn Cannabinoid Scrn Not Detected (NotDetected)
[2020-08-06 12:24] LABS: Amphetamine Screen,Urine Not Detected (NotDetected); Barbiturate Screen,Urine Not Detected (NotDetected); Benzodiazepines Screen,Urine Detected (NotDetected); Cocaine Screen,Urine Not Detected (NotDetected); Methadone Screen, Urine Not Detected (NotDetected); Opiate Screen,Urine Detected (NotDetected); Oxycodone Screen, Urine Not Detected (NotDetected); Phencyclidine Screen,Urine Not Detected (NotDetected); Tricyclic Antidepressant,Urine Not Detected (NotDetected)
[2020-08-06 12:26] LABS: Basophils % (A) 0 %; Eosinophils % (A) 0 %; HCT 42.3 % (39.0-53.0); HGB 14.5 gm/dL (13.0-17.5); Lymphocytes % (A) 20 %; MCH 29.1 pg (25.0-35.0); MCHC 34.2 g/dL (31.0-37.0); Monocytes # (A) 0.4 k/uL (0-1.0); Monocytes % (A) 4 %; Neutrophils # (A) 7.5 k/uL (1.3-7.7); Neutrophils % (A) 75 %; Platelet Count 284 k/uL (150-450); RBC 4.98 m/uL (4.30-5.90)
--- NOTE | 2020-08-06 12:34 | XR ---
EXAMINATION TYPE: XR chest 2V DATE OF EXAM: 08/06/2020 COMPARISON: 09/04/2019 HISTORY: Chest pain TECHNIQUE: Frontal and lateral views of the chest are obtained. FINDINGS: There is no focal air space opacity. No evidence for pneumothorax. No pleural effusion. The cardiac silhouette size is within normal limits. The osseous structures are grossly intact. IMPRESSION: 1. No acute cardiopulmonary process.
--- NOTE | 2020-08-06 12:53 | ED ---
Arrhythmia/Palpitations HPI - General Chief Complaint: Arrhythmia/Palpitations Stated Complaint: racing heart Time Seen by Provider: 08/06/20 11:16 Source: patient Mode of arrival: wheelchair Limitations: no limitations - History of Present Illness Initial Comments: 45-year-old male with history of coronary artery disease (acute STEMI 2016), RCA stent , hypertension, ventricular fibrillation, kidney stones, chronic back pain presenting today for chief complaint of palpitations. Patient states that 4 months ago he had an episode where he felt like his heart rate went very high and he can feel fluttering in his chest. Patient states that that since has subsided and only lasted briefly that day. Patient states this morning he experienced the racing heart episode again but had his apple watch on he states his HR was in the 130s. Patient states he felt hot and flushed. Patient denies chest pain, back pain, chest pressure, nausea, vomiting, arm pain. Patient denies diaphoresis but states he felt warm. Admits to jaw pain ysterday but thought it was just his sinuses. Patient states his last STEMI he only has neck pain and dyspnea. Denies dyspnea today, dnies leg swelling, hemoptysis, hx of PE/DVT, recent surgeries/immobilization or injuries. Patient appears well nontoxic in no acute distress.He state HR normalizd and he is feeling better at this moment no current jaw pain. - Related Data Home Medications Medication Instructions Recorded Confirmed Pantoprazole Sodium [Protonix] 40 mg PO DAILY 09/02/17 08/06/20 Prasugrel [Effient] 10 mg PO DAILY 09/02/17 08/06/20 Rosuvastatin [Crestor] 10 mg PO HS 09/02/17 08/06/20 Aspirin EC [Ecotrin Low Dose] 81 mg PO DAILY 09/04/19 08/06/20 HYDROcodone/APAP 7.5-325MG [[place] 1 tab PO Q4H PRN 09/04/19 08/06/20 7.5-325] ALPRAZolam [Xanax] 0.5 mg PO DAILY PRN 08/06/20 08/06/20 Docusate [Colace] 100 mg PO DAILY 08/06/20 08/06/20 Ergocalciferol [Vitamin D2 (1250 1,250 mcg PO SA 02/19/21 02/19/21 Mcg = 25753 Iu)] Fexofenadine/Pseudoephedrine 1 tab PO DAILY 08/06/20 08/06/20 [Ce-D 24 Hour Tablet] Multivit-Min/Folic/Vit K/Lycop 1 tab PO DAILY 08/06/20 08/06/20 [Men's Multivitamin Tablet] lisinopriL 10 mg PO DAILY 08/06/20 08/06/20 Allergies Allergy/AdvReac Type Severity Reaction Status Date / Time amoxicillin [Amoxicillin] AdvReac thrush Verified 08/06/20 12:52 Penicillins AdvReac Thrush Verified 08/06/20 12:52 Review of Systems ROS Statement: Those systems with pertinent positive or pertinent negative responses have been documented in the HPI. ROS Other: All systems not noted in ROS Statement are negative. Past Medical History Past Medical History: Coronary Artery Disease (CAD), Chest Pain / Angina, GERD/Reflux, Hypertension, Myocardial Infarction ([place]), Osteoarthritis (OA) Additional Past Medical History / Comment(s): 07-14-15 admitted with stemi,cardiac arrest v-fib. other past med hx includes: KIDNEY STONES, DDD, PAST WORK INJURY 800 POUND I BEAM DROPPED ON PT- BROKEN BACK.BUT PT REFUSED SX, PT STATED THAT PER AN MRI HE HAD THAT NOW THERE ARE 3 TUMORS GROWING IN AREA OF INJURY Last Myocardial Infarction Date:: 07-14-15 History of Any Multi-Drug Resistant Organisms: None Reported Past Surgical History: Heart Catheterization With Stent Additional Past Surgical History / Comment(s): Two stents in 2010 and re-done 2013. 07-14-15 stent to rca Past Anesthesia/Blood Transfusion Reactions: No Reported Reaction Additional Past Anesthesia/Blood Transfusion Reaction / Comment(s): CLAUSTERPHOBIA Date of Last Stent Placement:: 2013 Past Psychological History: ADD/ADHD, Anxiety, Depression, PTSD Smoking Status: Former smoker Past Alcohol Use History: None Reported Past Drug Use History: None Reported - Past Family History Father Family Medical History: Coronary Artery Disease (CAD), Hyperlipidemia, Myocardial Infarction ([place]) Additional Family Medical History / Comment(s): Had 3 triple bypass surg Mother Family Medical History: Coronary Artery Disease (CAD) Additional Family Medical History / Comment(s): History of stents General Exam - General Exam Comments Initial Comments: General: The patient is awake and alert, in no distress Eye: +3 mm pupils are equal, round and reactive to light, extra-ocular movemen ts are intact. No nystagmus. There is normal conjunctiva bilaterally. No signs of icterus. Ears, nose, mouth and throat: There are moist mucous membranes and no oral les ions. Neck: The neck is supple, there is no tenderness or JVD. Cardiovascular: There is a regular rate and rhythm. No murmur, rub or gallop is appreciated. Respiratory: Lungs are clear to auscultation, respirations are non-labored, breath sounds are equal. No wheezes, stridor, rales, or rhonchi. Gastrointestinal: Soft, non-distended, non-tender abdomen without masses or organomegaly noted. There is no rebound or guarding present. Musculoskeletal: Normal ROM, no tenderness. Strength 5/5. Sensation intact. Radial and DP pulses equal bilaterally 2+. Neurological: A&O x 3. CN II-XII intact grossly, There are no obvious motor or sensory deficits. Coordination appears grossly intact. Speech is normal. Skin: Skin is warm and dry and no rashes or lesions are noted. NO calf pain or LE edema. Psychiatric: Cooperative, appropriate mood & affect, normal judgment. Limitations: no limitations Course Vital Signs 08/06/20 11:09 Temperature 98.2 F Pulse Rate 83 Respiratory 16 Rate Blood Pressure 166/95 O2 Sat by Pulse 98 Oximetry Medical Decision Making - Medical Decision Making 45-year-old male presenting today for chief complaint palpitations history of V. fib. History of myocardial infarction. No chest pain pressure or shortness of breath. Patient denies any current palpitations. EKG no acute changes. Initial troponin negative. Patient did have jaw pain yesterday he thought was associated to his sinuses however it was lower jaw pain. Patient denies any additional complaints. I discussed case with Dr. Shipman who is agreeable to admission for observation/serial troponins and cardiology evaluation. - Lab Data Result diagrams: 08/06/20 11:45 08/06/20 11:45 Lab Results 08/06/20 08/06/20 08/06/20 Range/Units 11:45 11:45 11:45 WBC 10.0 (3.8-10.6) k/uL RBC 4.98 (4.30-5.90) m/uL Hgb 14.5 (13.0-17.5) gm/dL Hct 42.3 (39.0-53.0) % MCV 85.0 (80.0-100.0) fL MCH 29.1 (25.0-35.0) pg MCHC 34.2 (31.0-37.0) g/dL RDW 13.0 (11.5-15.5) % Plt Count 284 (150-450) k/uL MPV 7.0 Neutrophils % 75 % Lymphocytes % 20 % Monocytes % 4 % Eosinophils % 0 % Basophils % 0 % Neutrophils # 7.5 (1.3-7.7) k/uL Lymphocytes # 2.0 (1.0-4.8) k/uL Monocytes # 0.4 (0-1.0) k/uL Eosinophils # 0.0 (0-0.7) k/uL Basophils # 0.0 (0-0.2) k/uL PT 10.6 (9.0-12.0) sec INR 1.0 (<1.2) APTT 24.4 (22.0-30.0) sec Sodium (137-145) mmol/L Potassium (3.5-5.1) mmol/L Chloride (98-107) mmol/L Carbon Dioxide (22-30) mmol/L Anion Gap mmol/L BUN (9-20) mg/dL Creatinine (0.66-1.25) mg/dL Est GFR (CKD-EPI)AfAm (>60 ml/min/1.73 sqM) Est GFR (CKD-EPI)NonAf (>60 ml/min/1.73 sqM) Glucose (74-99) mg/dL Calcium (8.4-10.2) mg/dL Magnesium (1.6-2.3) mg/dL Total Bilirubin (0.2-1.3) mg/dL AST (17-59) U/L ALT (4-49) U/L Alkaline Phosphatase (38-126) U/L Troponin I (0.000-0.034) ng/mL Total Protein (6.3-8.2) g/dL Albumin (3.5-5.0) g/dL TSH (0.465-4.680) mIU/L Urine Color Urine Appearance (Clear) Urine pH (5.0-8.0) Ur Specific [place] (1.001-1.035) Urine Protein (Negative) Urine Glucose (UA) (Negative) Urine Ketones (Negative) Urine Blood (Negative) Urine Nitrite (Negative) Urine Bilirubin (Negative) Urine Urobilinogen (<2.0) mg/dL Ur Leukocyte Esterase (Negative) Urine RBC (0-5) /hpf Urine WBC (0-5) /hpf Ur Squamous Epith Cells (0-4) /hpf Urine Bacteria (None) /hpf Urine Mucus (None) /hpf Urine Opiates Screen Detected H (NotDetected) Ur Oxycodone Screen Not Detected (NotDetected) Urine Methadone Screen Not Detected (NotDetected) Ur Propoxyphene Screen Not Detected (NotDetected) Ur Barbiturates Screen Not Detected (NotDetected) U Tricyclic Antidepress Not Detected (NotDetected) Ur Phencyclidine Scrn Not Detected (NotDetected) Ur Amphetamines Screen Not Detected (NotDetected) U Methamphetamines Scrn Not Detected (NotDetected) U Benzodiazepines Scrn Detected H (NotDetected) Urine Cocaine Screen Not Detected (NotDetected) U Marijuana (THC) Screen Not Detected (NotDetected) 08/06/20 08/06/20 08/06/20 Range/Units 11:45 11:45 11:45 WBC (3.8-10.6) k/uL RBC (4.30-5.90) m/uL Hgb (13.0-17.5) gm/dL Hct (39.0-53.0) % MCV (80.0-100.0) fL MCH (25.0-35.0) pg MCHC (31.0-37.0) g/dL RDW (11.5-15.5) % Plt Count (150-450) k/uL MPV Neutrophils % % Lymphocytes % % Monocytes % % Eosinophils % % Basophils % % Neutrophils # (1.3-7.7) k/uL Lymphocytes # (1.0-4.8) k/uL Monocytes # (0-1.0) k/uL Eosinophils # (0-0.7) k/uL Basophils # (0-0.2) k/uL PT (9.0-12.0) sec INR (<1.2) APTT (22.0-30.0) sec Sodium 140 (137-145) mmol/L Potassium 3.8 (3.5-5.1) mmol/L Chloride 102 (98-107) mmol/L Carbon Dioxide 27 (22-30) mmol/L Anion Gap 11 mmol/L BUN 15 (9-20) mg/dL Creatinine 0.71 (0.66-1.25) mg/dL Est GFR (CKD-EPI)AfAm >90 (>60 ml/min/1.73 sqM) Est GFR (CKD-EPI)NonAf >90 (>60 ml/min/1.73 sqM) Glucose 110 H (74-99) mg/dL Calcium 9.8 (8.4-10.2) mg/dL Magnesium 1.7 (1.6-2.3) mg/dL Total Bilirubin 1.3 (0.2-1.3) mg/dL AST 20 (17-59) U/L ALT 20 (4-49) U/L Alkaline Phosphatase 78 (38-126) U/L Troponin I <0.012 (0.000-0.034) ng/mL Total Protein 7.6 (6.3-8.2) g/dL Albumin 4.8 (3.5-5.0) g/dL TSH 1.390 (0.465-4.680) mIU/L Urine Color Yellow Urine Appearance Clear (Clear) Urine pH 7.0 (5.0-8.0) Ur Specific [place] 1.029 (1.001-1.035) Urine Protein Trace H (Negative) Urine Glucose (UA) Negative (Negative) Urine Ketones Negative (Negative) Urine Blood Small H (Negative) Urine Nitrite Negative (Negative) Urine Bilirubin Negative (Negative) Urine Urobilinogen <2.0 (<2.0) mg/dL Ur Leukocyte Esterase Negative (Negative) Urine RBC 7 H (0-5) /hpf Urine WBC <1 (0-5) /hpf Ur Squamous Epith Cells <1 (0-4) /hpf Urine Bacteria Rare H (None) /hpf Urine Mucus Moderate H (None) /hpf Urine Opiates Screen (NotDetected) Ur Oxycodone Screen (NotDetected) Urine Methadone Screen (NotDetected) Ur Propoxyphene Screen (NotDetected) Ur Barbiturates Screen (NotDetected) U Tricyclic Antidepress (NotDetected) Ur Phencyclidine Scrn (NotDetected) Ur Amphetamines Screen (NotDetected) U Methamphetamines Scrn (NotDetected) U Benzodiazepines Scrn (NotDetected) Urine Cocaine Screen (NotDetected) U Marijuana (THC) Screen (NotDetected) Disposition Clinical Impression: Palpitations Disposition: ADMITTED IP TO THIS [facility] Condition: Stable Is patient prescribed a controlled substance at d/c from ED?: No Referrals: Salvador Junior MD [Primary Care Provider] - 1-2 days Time of Disposition: 13:12 Decision to Admit Reason: Admit from EC Decision Date: 08/06/20 Decision Time: 13:12
[2020-08-06] MEDS ORDERED: NITROGLYCERIN SL TABS 0.4 MG TAB SUBLINGUAL PRN (13:09)
[2020-08-06] MEDS: HYDROcodone/APAP 7.5-325MG 1 EACH TAB PO PRN ×2 (15:26→21:48)
[2020-08-06] MEDS: lisinopriL 10 MG TAB PO SCH (15:27)
[2020-08-06] MEDS: ALPRAZolam 0.5 MG TAB PO PRN (16:09)
[2020-08-06] MEDS ORDERED: ATORVASTATIN 20 MG TAB PO SCH (21:00)
--- NOTE | 2020-08-06 22:30 | P.HPIM ---
History of Present Illness H&P Date: 08/06/20 Chief Complaint: Palpitations Patient is a 45-year-old male with known history of coronary artery disease status post stent placement x3 and history of [place] and cardiac arrest with the A. fib in 2016, anxiety, hypertension, osteoarthritis and GERD presents to ER with complaints of heart beating fast. Patient states that he woke up in the morning and felt very anxious and his heart was beating fast up to 150s. Denied any complaints of chest pain. Patient felt dizzy and lightheaded. No nausea vomiting patient states that he felt hot and flushed. Heart rate was subsided gradually. Patient states that about 4 months ago he had episode where he felt like hot beating fast. Patient was previously seen by cardiology and was given heart monitor but could not be done due to lack of signal at his home. Patient states that he was having PTSD's of his previous cardiac arrest and presents to ER for evaluation. Otherwise denied any fever or chills. No cough or sputum production. No history of blood clots in the past. Denies any complaints of chest pain at this time. Chest x-ray showed no acute cardiopulmonary process EKG showed normal sinus rhythm with low voltage QRS. Laboratory test showed troponin x1 - and TSH 1.39 and UDS is positive for opiates and benzodiazepines. Blood pressure 166/95 and heart rate 83 and pulse ox 98% on room air on admission. Review of Systems Constitutional: Patient denies any fever or chills . No generalized weakness or weight loss. Abdomen: Patient denied nausea vomiting and diarrhea and abdominal pain. Cardiovascular: Patient denies any chest pain or short of breath. + palpitations. Respiratory: patient denied any cough or sputum production. No shortness of breath Neurologic: Patient denied any numbness or tingling headache. Musculoskeletal: Patient denies any complaints of joint swelling or deformity. Skin: Negative Psychiatric: anxiety Endocrine: No heat or cold intolerance. No recent weight gain. Genitourinary: No dysuria or hematuria. All other 14 point ROS negative except the above Past Medical History Past Medical History: Coronary Artery Disease (CAD), Chest Pain / Angina, GERD/Reflux, Hypertension, Myocardial Infarction ([place]), Osteoarthritis ([place]) Additional Past Medical History / Comment(s): 07-14-15 admitted with stemi,cardiac arrest v-fib. other past med hx includes: KIDNEY STONES, DDD, PAST WORK INJURY 800 POUND I BEAM DROPPED ON PT- BROKEN BACK.BUT PT REFUSED SX, PT STATED THAT PER AN MRI HE HAD THAT NOW THERE ARE 3 TUMORS GROWING IN AREA OF INJURY Last Myocardial Infarction Date:: 07-14-15 History of Any Multi-Drug Resistant Organisms: None Reported Past Surgical History: Heart Catheterization With Stent Additional Past Surgical History / Comment(s): Two stents in 2010 and re-done 2013. 07-14-15 stent to rca Past Anesthesia/Blood Transfusion Reactions: No Reported Reaction Additional Past Anesthesia/Blood Transfusion Reaction / Comment(s): CLAUSTERPHOBIA Date of Last Stent Placement:: 2013 Past Psychological History: ADD/ADHD, Anxiety, Depression, PTSD Additional Psychological History / Comment(s): severe anxiety Smoking Status: Former smoker Past Alcohol Use History: None Reported Additional Past Alcohol Use History / Comment(s): STARTED SMOKING AT AGE 17- SMOKES 2-3 PPD SMOKING CESSATION BOOKLET GIVEN TO PT. Past Drug Use History: None Reported - Past Family History Father Family Medical History: Coronary Artery Disease (CAD), Hyperlipidemia, Myocardial Infarction ([place]) Additional Family Medical History / Comment(s): Had 3 triple bypass surg Mother Family Medical History: Coronary Artery Disease (CAD) Additional Family Medical History / Comment(s): History of stents Medications and Allergies Home Medications Medication Instructions Recorded Confirmed Type Pantoprazole Sodium [Protonix] 40 mg PO DAILY 09/02/17 08/06/20 History Prasugrel [Effient] 10 mg PO DAILY 09/02/17 08/06/20 History Rosuvastatin [Crestor] 10 mg PO HS 09/02/17 08/06/20 History Aspirin EC [Ecotrin Low Dose] 81 mg PO DAILY 09/04/19 08/06/20 History HYDROcodone/APAP 7.5-325MG [[place] 1 tab PO Q4H PRN 09/04/19 08/06/20 History 7.5-325] ALPRAZolam [Xanax] 0.5 mg PO DAILY PRN 08/06/20 08/06/20 History Docusate [Colace] 100 mg PO DAILY 08/06/20 08/06/20 History Ergocalciferol [Vitamin D2 (1250 1,250 mcg PO SA 08/06/20 08/06/20 History Mcg = 08123 Iu)] Fexofenadine/Pseudoephedrine 1 tab PO DAILY 08/06/20 08/06/20 History [Ce-D 24 Hour Tablet] Multivit-Min/Folic/Vit K/Lycop 1 tab PO DAILY 08/06/20 08/06/20 History [Men's Multivitamin Tablet] lisinopriL 10 mg PO DAILY 08/06/20 08/06/20 History Allergies Allergy/AdvReac Type Severity Reaction Status Date / Time amoxicillin [Amoxicillin] AdvReac thrush Verified 08/06/20 12:52 Penicillins AdvReac Thrush Verified 08/06/20 12:52 Physical Exam Vitals: Vital Signs Temp Pulse Pulse Resp BP BP Pulse Ox 08/06/20 20:44 97.3 F L 60 18 133/69 96 08/06/20 14:34 97.8 F 70 18 146/80 96 08/06/20 13:44 97.3 F L 63 20 139/80 98 08/06/20 11:09 98.2 F 83 16 166/95 98 Intake and Output 08/06/20 08/06/20 08/06/20 06:59 14:59 22:59 Other: Voiding Method Toilet Weight 99.79 kg 99.79 kg PHYSICAL EXAMINATION: Patient is lying in the bed comfortably, no acute distress, awake alert and oriented.. HEENT: Normocephalic. Neck is supple. Pupils reactive. Nostrils clear. Oral cavity is moist. Ears reveal no drainage. Neck reveals no JVD, carotid bruits, or thyromegaly. CHEST EXAMINATION: Trachea is central. Symmetrical expansion. Lung salazar clear to auscultation and percussion. CARDIAC: Normal S1, S2 with no gallops. No murmurs ABDOMEN: Soft. Bowel sounds normal. No organomegaly. No abdominal bruits. Extremities: reveal no edema. No clubbing or cyanosis Neurologically awake, alert, oriented x3 with well-coordinated movements. No focal deficits noted Skin: No rash or skin lesions. Psychiatric: Coperative. Nonsuicidal, anxious Musculoskeletal: No joint swelling or deformity. Normal range of motion. Results CBC & Chem 7: 08/06/20 11:45 08/06/20 11:45 Labs: Abnormal Lab Results - Last 24 Hours (Table) 08/06/20 08/06/20 08/06/20 Range/Units 11:45 11:45 11:45 Glucose 110 H (74-99) mg/dL Urine Protein Trace H (Negative) Urine Blood Small H (Negative) Urine RBC 7 H (0-5) /hpf Urine Bacteria Rare H (None) /hpf Urine Mucus Moderate H (None) /hpf Urine Opiates Screen Detected H (NotDetected) U Benzodiazepines Scrn Detected H (NotDetected) Thrombosis Risk Factor Assmnt - DVT/VTE Prophylaxis DVT/VTE Prophylaxis: Pharmacologic Prophylaxis ordered - Choose All That Apply Any of the Below Risk Factors Present?: Yes Each Factor Represents 1 point: Age 41-60 years, Obesity (BMI >25) Other Risk Factors: Yes Thrombosis Risk Factor Assessment Total Risk Factor Score: 2 Thrombosis Risk Factor Assessment Level: Low Risk Assessment and Plan Assessment: Sudden onset of palpitations. Rule out arrhythmia. History of STEMI, cardiac arrest with ventricular fibrillation 2016 Anxiety/depression, ADD/ADHD and PTSD GERD Coronary artery disease history of stent placement x3 and last stent in 2016 Degenerative disc disease History of renal stones Previous history of smoking UDS is positive for opiates and benzodiazepines DVT prophylaxis with heparin subcu Plan: Patient will be continued telemetry monitoring. Continue with aspirin, statins. Serial EKG and troponins x3. Continue with PPI and monitor blood pressure. Cardiology was consulted and further recommendations based on the clinical course. Discussed with the patient and his at bedside in detail. Time with Patient: Greater than 30
[2020-08-07] MEDS: HEPARIN SODIUM,PORCINE 5,000 UNIT/ML 1 ML VIAL SQ SCH ×3 (01:18→16:52)
[2020-08-07] MEDS ORDERED: PANTOPRAZOLE 40 MG TABLET PO SCH (07:30)
--- NOTE | 2020-08-07 07:34 | P.CRDCN ---
History of Present Illness Consult date: 08/07/20 Chief complaint: Palpitations/heart racing History of present illness: This is a very pleasant 45-year-old gentleman with coronary artery disease and prior revascularization as well as hypertension and dyslipidemia who presented to the hospital complaining of heart racing. He was in his usual state of health yesterday when he was sitting at home and suddenly he did have an episode of heart racing and lasted for few seconds. No associated symptoms of dizziness or lightheadedness and no syncope. No symptoms of chest pain or chest discomfo rt. He was able to check his pulse and pulse was about 120 bpm for few seconds only. He did have a similar episode about 8 months ago and he where the monitor and that was unremarkable. He is not on any beta edgard. The blood work came in to be unremarkable. Enzymes are unremarkable. The EKG showed sinus rhythm. During his hospital stay and few minutes ago he did have an episode of nonsust ained ventricular tachycardia of about 4-5 beats only. Magnesium is on the low normal and the potassium also is on the low normal. I'm going to start the patient on small dose of metoprolol 12.5 mg by mouth twice a day. I am also going to obtain an echocardiogram to assess ejection fraction. The patient would like to go home. I would monitor the patient to known kind and if he remains asymptomatic he possibly can be discharged home and follow-up as an outpatient. Past Medical History Past Medical History: Coronary Artery Disease (CAD), Chest Pain / Angina, GERD/Reflux, Hypertension, Myocardial Infarction ([place]), Osteoarthritis ([place]) Additional Past Medical History / Comment(s): 07-14-15 admitted with stemi,cardiac arrest v-fib. other past med hx includes: KIDNEY STONES, DDD, PAST WORK INJURY 800 POUND I BEAM DROPPED ON PT- BROKEN BACK.BUT PT REFUSED SX, PT STATED THAT PER AN MRI HE HAD THAT NOW THERE ARE 3 TUMORS GROWING IN AREA OF INJURY Last Myocardial Infarction Date:: 07-14-15 History of Any Multi-Drug Resistant Organisms: None Reported Past Surgical History: Heart Catheterization With Stent Additional Past Surgical History / Comment(s): Two stents in 2010 and re-done 2013. 07-14-15 stent to rca Past Anesthesia/Blood Transfusion Reactions: No Reported Reaction Additional Past Anesthesia/Blood Transfusion Reaction / Comment(s): CLAUSTERPHOBIA Date of Last Stent Placement:: 2013 Past Psychological History: ADD/ADHD, Anxiety, Depression, PTSD Smoking Status: Former smoker Past Alcohol Use History: None Reported Past Drug Use History: None Reported - Past Family History Father Family Medical History: Coronary Artery Disease (CAD), Hyperlipidemia, Myocardial Infarction ([place]) Additional Family Medical History / Comment(s): Had 3 triple bypass surg Mother Family Medical History: Coronary Artery Disease (CAD) Additional Family Medical History / Comment(s): History of stents Medications and Allergies Home Medications Medication Instructions Recorded Confirmed Type Pantoprazole Sodium [Protonix] 40 mg PO DAILY 09/02/17 08/06/20 History Prasugrel [Effient] 10 mg PO DAILY 09/02/17 08/06/20 History Rosuvastatin [Crestor] 10 mg PO HS 09/02/17 08/06/20 History Aspirin EC [Ecotrin Low Dose] 81 mg PO DAILY 09/04/19 08/06/20 History HYDROcodone/APAP 7.5-325MG [[place] 1 tab PO Q4H PRN 09/04/19 08/06/20 History 7.5-325] ALPRAZolam [Xanax] 0.5 mg PO DAILY PRN 08/06/20 08/06/20 History Docusate [Colace] 100 mg PO DAILY 08/06/20 08/06/20 History Ergocalciferol [Vitamin D2 (1250 1,250 mcg PO SA 08/06/20 08/06/20 History Mcg = 51860 Iu)] Fexofenadine/Pseudoephedrine 1 tab PO DAILY 08/06/20 08/06/20 History [Ce-D 24 Hour Tablet] Multivit-Min/Folic/Vit K/Lycop 1 tab PO DAILY 08/06/20 08/06/20 History [Men's Multivitamin Tablet] lisinopriL 10 mg PO DAILY 08/06/20 08/06/20 History Allergies Allergy/AdvReac Type Severity Reaction Status Date / Time amoxicillin [Amoxicillin] AdvReac thrush Verified 08/06/20 12:52 Penicillins AdvReac Thrush Verified 08/06/20 12:52 Physical Exam Vitals: Vital Signs Temp Pulse Pulse Resp BP BP Pulse Ox 08/07/20 02:00 97.7 F 71 17 112/69 99 08/06/20 20:44 97.3 F L 60 18 133/69 96 08/06/20 14:34 97.8 F 70 18 146/80 96 08/06/20 13:44 97.3 F L 63 20 139/80 98 08/06/20 11:09 98.2 F 83 16 166/95 98 Intake and Output 08/06/20 08/07/20 08/07/20 22:59 06:59 14:59 Other: # Voids 2 2 Weight 99.79 kg - Constitutional General appearance: no acute distress - Respiratory Respiratory: bilateral: CTA - Cardiovascular Rhythm: regular Heart sounds: normal: S1, S2 Results 08/06/20 11:45 08/06/20 11:45 Cardiac Enzymes 08/06/20 08/06/20 08/06/20 Range/Units 11:45 11:45 14:26 AST 20 (17-59) U/L Troponin I <0.012 <0.012 (0.000-0.034) ng/mL 08/06/20 Range/Units 17:41 AST (17-59) U/L Troponin I <0.012 (0.000-0.034) ng/mL Coagulation 08/06/20 Range/Units 11:45 PT 10.6 (9.0-12.0) sec APTT 24.4 (22.0-30.0) sec CBC 08/06/20 Range/Units 11:45 WBC 10.0 (3.8-10.6) k/uL RBC 4.98 (4.30-5.90) m/uL Hgb 14.5 (13.0-17.5) gm/dL Hct 42.3 (39.0-53.0) % Plt Count 284 (150-450) k/uL Comprehensive Metabolic Panel 08/06/20 Range/Units 11:45 Sodium 140 (137-145) mmol/L Potassium 3.8 (3.5-5.1) mmol/L Chloride 102 (98-107) mmol/L Carbon Dioxide 27 (22-30) mmol/L BUN 15 (9-20) mg/dL Creatinine 0.71 (0.66-1.25) mg/dL Glucose 110 H (74-99) mg/dL Calcium 9.8 (8.4-10.2) mg/dL AST 20 (17-59) U/L ALT 20 (4-49) U/L Alkaline Phosphatase 78 (38-126) U/L Total Protein 7.6 (6.3-8.2) g/dL Albumin 4.8 (3.5-5.0) g/dL Current Medications Generic Name Dose Route Start Last Admin Trade Name Freq PRN Reason Stop Dose Admin Hydrocodone Bitart/Acetaminophen 1 each 08/06/20 14:36 08/06/20 21:48 Hydrocodone/Apap 7.5-325mg 1 Each Tab PO 1 each Q4H PRN Administration Pain Alprazolam 0.5 mg 08/06/20 14:36 08/06/20 16:09 Alprazolam 0.5 Mg Tab PO 0.5 mg DAILY PRN Administration Anxiety Aspirin 81 mg 08/07/20 09:00 Aspirin 81 Mg PO DAILY VJ Atorvastatin Calcium 20 mg 08/06/20 21:00 08/06/20 20:57 Atorvastatin 20 Mg Tab PO 20 mg HS VJ Administration Docusate Sodium 100 mg 08/07/20 09:00 Docusate 100 Mg Cap PO DAILY [facility] Ergocalciferol 1,250 mcg 08/07/20 09:00 Ergocalciferol 1,250 Mcg (50,000 Iu) Capsule PO SA [facility] Heparin Sodium (Porcine) 5,000 unit 08/07/20 00:00 08/07/20 01:18 Heparin Sodium,Porcine 5,000 Unit/Ml 1 Ml Vial SQ Not Given Q8HR VJ Lisinopril 10 mg 08/06/20 14:45 08/06/20 15:27 Lisinopril 10 Mg Tab PO 10 mg DAILY VJ Administration Loratadine/Pseudoephedrine Sulfate 1 each 08/07/20 09:00 Loratadine-Pseudoeph 5-120 Mg 1 Each Tab.Er.12h PO Q12HR [facility] Metoprolol Tartrate 12.5 mg 08/07/20 09:00 Metoprolol Tartrate 12.5 Mg Tab PO BID [facility] Multivitamins 1 each 08/07/20 09:00 Multivitamins, Thera 1 Each Tab PO DAILY VJ Nitroglycerin 0.4 mg 08/06/20 13:09 Nitroglycerin Sl Tabs 0.4 Mg Tab SUBLINGUAL Q5M PRN Chest Pain Pantoprazole Sodium 40 mg 08/07/20 07:30 Pantoprazole 40 Mg Tablet PO AC-BRKFST VJ Prasugrel 10 mg 08/07/20 09:00 Prasugrel 10 Mg Tab PO DAILY VJ Intake and Output 08/06/20 08/07/20 08/07/20 22:59 06:59 14:59 Other: # Voids 2 2 Weight 99.79 kg 08/06/20 11:45 08/06/20 11:45 Assessment and Plan Assessment: Assessment #1 coronary artery disease #2 hypertension 3 dyslipidemia #4 nonsustained ventricular tachycardia Plan #1 continue the current medical regimen #2 and a small dose of metoprolol #3 obtain an echocardiogram was Doppler #4 the patient might benefit from [id number] magnesium #5 patient would like to go home
[2020-08-07 08:06] VITALS: RESP 16
[2020-08-07] MEDS: lisinopriL 10 MG TAB PO SCH (08:43)
[2020-08-07] MEDS: ALPRAZolam 0.5 MG TAB PO PRN (08:51)
[2020-08-07] MEDS ORDERED: ASPIRIN 81 MG PO SCH (09:00)
[2020-08-07] MEDS ORDERED: DOCUSATE 100 MG CAP PO SCH (09:00)
[2020-08-07] MEDS ORDERED: MULTIVITAMINS, THERA 1 EACH TAB PO SCH (09:00)
[2020-08-07] MEDS ORDERED: LORATADINE-PSEUDOEPH 5-120 MG 1 EACH TAB.ER.12H PO SCH (09:00)
[2020-08-07] MEDS ORDERED: ERGOCALCIFEROL 1,250 MCG (50,000 IU) CAPSULE PO SCH (09:00)
[2020-08-07] MEDS ORDERED: METOPROLOL TARTRATE 12.5 MG TAB PO SCH (09:00)
[2020-08-07] MEDS ORDERED: PRASUGREL 10 MG TAB PO SCH (09:00)
[2020-08-07] MEDS ORDERED: ASPIRIN 325 MG TAB PO SCH (09:00)
[2020-08-07 09:09] LABS: Chol/HDL Ratio 3.58; LDL Cholesterol,Calculated 70.6 mg/dL (0.0-131.0); VLDL Calculation 27.4 mg/dL (5.00-40.00)
[2020-08-07] MEDS: HYDROcodone/APAP 7.5-325MG 1 EACH TAB PO PRN (12:26)
[2020-08-07 14:42] VITALS: BP 146/73; PULSE 68; TEMP 97.6
[2020-08-07 15:50] VITALS: BMI 31.5
--- NOTE | 2020-08-08 10:00 | ECHOF ---
Referral Reason:palpitations MEASUREMENTS -------- HEIGHT: 162.6 cm WEIGHT: 99.8 kg BP: RVIDd: 3.1 cm (< 3.3) IVSd: 1.1 cm (0.6 - 1.1) LVIDd: 4.9 cm (3.9 - 5.3) LVPWd: 1.2 cm (0.6 - 1.1) IVSs: 1.3 cm LVIDs: 3.6 cm LVPWs: 1.4 cm LA Diam: 3.2 cm (2.7 - 3.8) LAESV Index (A-L): 24.17 ml/m Ao Diam: 2.7 cm (2.0 - 3.7) AV Cusp: 2.1 cm (1.5 - 2.6) LA Diam: 3.4 cm (2.7 - 3.8) MV EXCURSION: 18.742 mm (> 18.000) MV EF SLOPE: 86 mm/s (70 - 150) EPSS: 0.5 cm MV E Byron: 0.80 m/s MV DecT: 239 ms MV A Byron: 0.75 m/s MV E/A Ratio: 1.06 RAP: 5.00 mmHg RVSP: 22.70 mmHg FINDINGS -------- Sinus rhythm. This was a technically good study. LV size, wall thickness and systolic function are normal, with an EF greater than 55%. The left jeremías tricular size is normal. The right ventricle is normal in size. Normal LA size by volume 22+/-6 ml/m2. The right atrial size is normal. The aortic valve is trileaflet, and appears structurally normal. No aortic stenosis or regurgitation. Mild mitral regurgitation is present. Mild tricuspid regurgitation present. Right ventricular systolic pressure is normal at < 35 mmHg. There is no pulmonic regurgitation present. The aortic root size is normal. There is no pericardial effusion. CONCLUSIONS -------- 1. LV size, wall thickness and systolic function are normal, with an EF greater than 55%. 2. The left ventricular size is normal. 3. The right ventricle is normal in size. 4. Normal LA size by volume 22+/-6 ml/m2. 5. The right atrial size is normal. 6. Mild mitral regurgitation is present. 7. Mild tricuspid regurgitation present. 8. There is no pulmonic regurgitation present. 9. The aortic root size is normal. 10. There is no pericardial effusion. [employer] OPERATOR: Roselyn Pisano RDCS
--- NOTE | 2020-08-12 11:57 | P.DS ---
Providers Date of admission: 08/06/20 13:01 Expected date of discharge: 08/07/20 Attending physician: Wing Gupta Consults: 08/06/20 13:09 Consult Physician Urgent Consulting Provider: Karri Fagan Consult Reason/Comments: jaw pain yesterday, palpitations today-no sxs currently Do you want consulting provider notified?: Yes Primary care physician: Salvador Junior Hospital Course: Discharge diagnosis Sudden onset of palpitations. Ruled out arrhythmia. History of STEMI, cardiac arrest with ventricular fibrillation 2016 Anxiety/depression, ADD/ADHD and PTSD GERD Coronary artery disease history of stent placement x3 and last stent in 2016 Degenerative disc disease History of renal stones Previous history of smoking UDS is positive for opiates and benzodiazepines DVT prophylaxis with heparin subcu Hospital course Patient is a 45-year-old male with known history of coronary artery disease status post stent placement x3 and history of VT and cardiac arrest with the A. fib in 2016, anxiety, hypertension, osteoarthritis and GERD presents to ER with complaints of heart beating fast. Patient states that he woke up in the morning and felt very anxious and his heart was beating fast up to 150s. Denied any complaints of chest pain. Patient felt dizzy and lightheaded. No nausea vomiting patient states that he felt hot and flushed. Heart rate was subsided gradually. Patient states that about 4 months ago he had episode where he felt like hot beating fast. Patient was previously seen by cardiology and was given heart monitor but could not be done due to lack of signal at his home. Patient states that he was having PTSD's of his previous cardiac arrest and presents to ER for evaluation. Otherwise denied any fever or chills. No cough or sputum production. No history of blood clots in the past. Denies any complaints of chest pain at this time. Chest x-ray showed no acute cardiopulmonary process EKG showed normal sinus rhythm with low voltage QRS. Laboratory test showed troponin x1 - and TSH 1.39 and UDS is positive for opiates and benzodiazepines. Blood pressure 166/95 and heart rate 83 and pulse ox 98% on room air on admission. Patient was continued telemetry monitoring. Continue with aspirin, statins. Serial EKG and troponins x3 negative. Continue with PPI and monitor blood pressure. Cardiology was consulted and further recommendations based on the clinical course. Patient was started on low-dose beta-edgard. 2D echocardiogram was done which showed ejection fraction 55% and no significant valvular abnormalities were noted. Patient is cleared from cardiology standpoint. Follow-up as an outpatient. Patient would like to be discharged home. PHYSICAL EXAMINATION: Patient is lying in the bed comfortably, no acute distress, awake alert and oriented.. HEENT: Normocephalic. Neck is supple. Pupils reactive. Nostrils clear. Oral cavity is moist. Ears reveal no drainage. Neck reveals no JVD, carotid bruits, or thyromegaly. CHEST EXAMINATION: Trachea is central. Symmetrical expansion. Lung salazar clear to auscultation and percussion. CARDIAC: Normal S1, S2 with no gallops. No murmurs ABDOMEN: Soft. Bowel sounds normal. No organomegaly. No abdominal bruits. Extremities: reveal no edema. No clubbing or cyanosis Neurologically awake, alert, oriented x3 with well-coordinated movements. No focal deficits noted Skin: No rash or skin lesions. Psychiatric: Coperative. Nonsuicidal. Musculoskeletal: No joint swelling or deformity. Normal range of motion. Vital Signs Temp Pulse Pulse Resp BP BP Pulse Ox 08/07/20 02:00 97.7 F 71 17 112/69 99 08/06/20 20:44 97.3 F L 60 18 133/69 96 08/06/20 14:34 97.8 F 70 18 146/80 96 08/06/20 13:44 97.3 F L 63 20 139/80 98 08/06/20 11:09 98.2 F 83 16 166/95 98 Intake and Output 08/06/20 08/07/20 08/07/20 22:59 06:59 14:59 Other: # Voids 2 2 Weight 99.79 kg Patient Condition at Discharge: Stable Plan - Discharge Summary New Discharge Prescriptions: New Metoprolol Tartrate [Lopressor] 12.5 mg PO BID 30 Days #60 dose Continue Rosuvastatin [Crestor] 10 mg PO HS Prasugrel [Effient] 10 mg PO DAILY Pantoprazole Sodium [Protonix] 40 mg PO DAILY HYDROcodone/APAP 7.5-325MG [[place] 7.5-325] 1 tab PO Q4H PRN PRN Reason: Pain Aspirin EC [Ecotrin Low Dose] 81 mg PO DAILY Ergocalciferol [Vitamin D2 (1250 Mcg = 88321 Iu)] 1,250 mcg PO SA Docusate [Colace] 100 mg PO DAILY lisinopriL 10 mg PO DAILY Multivit-Min/Folic/Vit K/Lycop [Men's Multivitamin Tablet] 1 tab PO DAILY Fexofenadine/Pseudoephedrine [Ce-D 24 Hour Tablet] 1 tab PO DAILY ALPRAZolam [Xanax] 0.5 mg PO DAILY PRN PRN Reason: Anxiety No Action PARoxetine [Paxil] 10 mg PO DAILY Discharge Medication List Pantoprazole Sodium [Protonix] 40 mg PO DAILY 09/02/17 [History] Prasugrel [Effient] 10 mg PO DAILY 09/02/17 [History] Rosuvastatin [Crestor] 10 mg PO HS 09/02/17 [History] Aspirin EC [Ecotrin Low Dose] 81 mg PO DAILY 09/04/19 [History] HYDROcodone/APAP 7.5-325MG [[place] 7.5-325] 1 tab PO Q4H PRN 09/04/19 [History] ALPRAZolam [Xanax] 0.5 mg PO DAILY PRN 08/06/20 [History] Docusate [Colace] 100 mg PO DAILY 08/06/20 [History] Ergocalciferol [Vitamin D2 (1250 Mcg = 29046 Iu)] 1,250 mcg PO SA 08/06/20 [History] Fexofenadine/Pseudoephedrine [Ce-D 24 Hour Tablet] 1 tab PO DAILY 08/06/20 [History] Multivit-Min/Folic/Vit K/Lycop [Men's Multivitamin Tablet] 1 tab PO DAILY 08/06/20 [History] lisinopriL 10 mg PO DAILY 08/06/20 [History] Metoprolol Tartrate [Lopressor] 12.5 mg PO BID 30 Days #60 dose 08/07/20 [Rx] PARoxetine [Paxil] 10 mg PO DAILY 08/08/20 [History] Follow up Appointment(s)/Referral(s): Karri Fagan MD [STAFF PHYSICIAN] - 1 Week Salvador Junior MD [Primary Care Provider] - 1-2 days Discharge Disposition: HOME SELF-CARE
== END 2020-08-07 16:50 | disposition home or self-care (01) ==
LOC: EC 11:08 → 6NMEDSUR 13:01
PROVIDERS: ADMIT Internal Medicine; ATTEND Internal Medicine
DX: R00.2 Palpitations (principal); R42 Dizziness and giddiness; R68.84 Jaw pain; I10 Essential (primary) hypertension; I49.01 Ventricular fibrillation; Z87.442 Personal history of urinary calculi; G89.29 Other chronic pain; M54.9 Dorsalgia, unspecified; E66.9 Obesity, unspecified; Z68.33 Body mass index [BMI] 33.0-33.9, adult; E78.5 Hyperlipidemia, unspecified; I47.2 Ventricular tachycardia; I48.91 Unspecified atrial fibrillation; I25.10 Atherosclerotic heart disease of native coronary artery without angina pectoris; I25.2 Old myocardial infarction; Z88.0 Allergy status to penicillin; K21.9 Gastro-esophageal reflux disease without esophagitis; M19.90 Unspecified osteoarthritis, unspecified site; F32.9 Major depressive disorder, single episode, unspecified; F43.10 Post-traumatic stress disorder, unspecified; F90.9 Attention-deficit hyperactivity disorder, unspecified type; Z79.899 Other long term (current) drug therapy; Z95.5 Presence of coronary angioplasty implant and graft; Z79.02 Long term (current) use of antithrombotics/antiplatelets; Z79.82 Long term (current) use of aspirin; Z79.891 Long term (current) use of opiate analgesic; Z87.891 Personal history of nicotine dependence; Z86.74 Personal history of sudden cardiac arrest; Z20.822 Contact with and (suspected) exposure to COVID-19; Z82.49 Family history of ischemic heart disease and other diseases of the circulatory system
CPT/HCPCS: 93005 ×2; 99285; 36415; 93306; 80061; 80053; 83735; 84443; 84484; 85025; 85610; 85730; 81001; 80306; 87635; 71046; G0378 ×2

== ENCOUNTER 2020-08-08 17:10 | Emergency (ER) | payer MEDICARE, OTHER ==
[2020-08-08 17:22] VITALS: TEMP 98.5
--- NOTE | 2020-08-08 17:26 | ED ---
General Adult HPI - General Chief complaint: Arrhythmia/Palpitations Stated complaint: heart palpitations-revisit Time Seen by Provider: 08/08/20 17:24 Source: patient, family Mode of arrival: wheelchair Limitations: no limitations - History of Present Illness Initial comments: Patient presents the ED with his for evaluation. Patient states that he developed rapid heart palpitations with associated dyspnea about a half an hour ago while at rest. Patient states that his palpitations/dyspnea/symptoms have since resolved, and he denies having any symptoms whatsoever currently. Patient states that he was recently admitted to the hospital for evaluation of his palpitations, and he was just discharged yesterday. He states that all of his tests came back normal, and he states that his center hole reamer felt that his heart was fine. Patient's states that she feels that the patient's symptoms are from anxiety. Patient's states that the patient suffered a cardiac arrest 5 years ago, and she states that he has been very anxious since then. Patient states that he started taking Paxil today for treatment of his anxiety. Patient also states that he took a dose of Xanax prior to coming to the ED this evening. Patient denies having any chest pain or any pain at all today. Patient denies fever or chills, headache, focal numbness/weakness/neuro deficit, chest pain or pressure, cough or cold symptoms, dizziness or syncope, abdominal pain, nausea/vomiting/diarrhea, dysuria or urinary symptoms, leg or calf swelling or pain, or any other symptoms or complaints. Patient denies alcohol or drug abuse. - Related Data Home Medications Medication Instructions Recorded Confirmed Pantoprazole Sodium [Protonix] 40 mg PO DAILY 09/02/17 08/08/20 Prasugrel [Effient] 10 mg PO DAILY 09/02/17 08/08/20 Rosuvastatin [Crestor] 10 mg PO HS 09/02/17 08/08/20 Aspirin EC [Ecotrin Low Dose] 81 mg PO DAILY 09/04/19 08/08/20 HYDROcodone/APAP 7.5-325MG [[place] 1 tab PO Q4H PRN 09/04/19 08/08/20 7.5-325] ALPRAZolam [Xanax] 0.5 mg PO DAILY PRN 08/06/20 08/08/20 Docusate [Colace] 100 mg PO DAILY 08/06/20 08/08/20 Ergocalciferol [Vitamin D2 (1250 1,250 mcg PO SA 08/06/20 08/08/20 Mcg = 51038 Iu)] Fexofenadine/Pseudoephedrine 1 tab PO DAILY 08/06/20 08/08/20 [Ce-D 24 Hour Tablet] Multivit-Min/Folic/Vit K/Lycop 1 tab PO DAILY 08/06/20 08/08/20 [Men's Multivitamin Tablet] lisinopriL 10 mg PO DAILY 08/06/20 08/08/20 PARoxetine [Paxil] 10 mg PO DAILY 08/08/20 08/08/20 Previous Rx's Medication Instructions Recorded Metoprolol Tartrate [Lopressor] 12.5 mg PO BID 30 Days #60 dose 08/07/20 Allergies Allergy/AdvReac Type Severity Reaction Status Date / Time amoxicillin [Amoxicillin] AdvReac thrush Verified 08/08/20 19:20 Penicillins AdvReac Thrush Verified 08/08/20 19:20 Review of Systems ROS Statement: Those systems with pertinent positive or pertinent negative responses have been documented in the HPI. ROS Other: All systems not noted in ROS Statement are negative. Past Medical History Past Medical History: Coronary Artery Disease (CAD), Chest Pain / Angina, GERD/Reflux, Hypertension, Myocardial Infarction ([place]), Osteoarthritis ([place]) Additional Past Medical History / Comment(s): 07-14-15 admitted with stemi,cardiac arrest v-fib. other past med hx includes: KIDNEY STONES, DDD, PAST WORK INJURY 800 POUND I BEAM DROPPED ON PT- BROKEN BACK.BUT PT REFUSED SX, PT STATED THAT PER AN MRI HE HAD THAT NOW THERE ARE 3 TUMORS GROWING IN AREA OF INJURY Last Myocardial Infarction Date:: 2010, 07-14-15 History of Any Multi-Drug Resistant Organisms: None Reported Past Surgical History: Heart Catheterization With Stent Additional Past Surgical History / Comment(s): Two stents in 2010 and re-done 2013. 07-14-15 stent to rca Past Anesthesia/Blood Transfusion Reactions: No Reported Reaction Additional Past Anesthesia/Blood Transfusion Reaction / Comment(s): CLAUSTERPHOBIA Date of Last Stent Placement:: 2013 Past Psychological History: ADD/ADHD, Anxiety, Depression, PTSD Smoking Status: Former smoker Past Alcohol Use History: None Reported Past Drug Use History: None Reported - Past Family History Father Family Medical History: Coronary Artery Disease (CAD), Hyperlipidemia, Myocardial Infarction ([place]) Additional Family Medical History / Comment(s): Had 3 triple bypass surg Mother Family Medical History: Coronary Artery Disease (CAD) Additional Family Medical History / Comment(s): History of stents General Exam Limitations: no limitations General appearance: alert, in no apparent distress Head exam: Present: atraumatic, normocephalic Eye exam: Present: normal appearance, EOMI ENT exam: Present: mucous membranes moist Neck exam: Present: other (Trachea is in midline) Respiratory exam: Present: normal lung sounds bilaterally. Absent: respiratory distress, wheezes, rales, rhonchi, stridor Cardiovascular Exam: Present: regular rate, normal rhythm, normal heart sounds, other (Normal radial pulses bilaterally) GI/Abdominal exam: Present: soft. Absent: distended, tenderness, guarding Extremities exam: Present: other (Negative Homans sign bilaterally). Absent: te nderness, pedal edema, calf tenderness Neurological exam: Present: alert, oriented X3. Absent: motor sensory deficit Psychiatric exam: Present: normal affect, normal mood Skin exam: Present: warm, dry, intact, normal color Course Vital Signs 08/08/20 08/08/20 08/08/20 17:18 18:25 19:57 Temperature 98.5 F Pulse Rate 66 58 L 60 Respiratory 18 16 18 Rate Blood Pressure 147/93 123/75 139/81 O2 Sat by Pulse 98 98 97 Oximetry - Reevaluation(s) Reevaluation #1: 08/08/20 21:31 Patient states that he is now experiencing some palpitations, and his reported palpitations align with occasional PVCs noted on the monitor worker. Patient is requesting medication to help with his anxiety. Ativan 1 mg IV has been ord ered. 08/08/20 22:15 Patient states that he feels much better after receiving IV Ativan in the ED. Patient states that his palpitations have now resolved. Patient denies development of any new symptoms while in the ED. Patient remains alert and breathing comfortably. Patient is aware of his test results, and he feels comfortable going home at this time. Patient to get a ride home from the ED tonight. Patient was counseled about palpitations, and he was clearly explained return and follow-up instructions. Patient was instructed to follow up closely with his primary care provider. Patient feels comfortable with this plan. EKG Findings - EKG Comments: EKG Findings:: Normal sinus rhythm, ventricular rate of 62 bpm, normal RI and QRS intervals, normal QT interval, normal axis, incomplete right bundle branch block, no ST or T-wave abnormality Medical Decision Making - Medical Decision Making I suspect that the patient's palpitations are likely secondary to PVCs, as well as possibly anxiety. Patient's labs are fairly unremarkable. Patient was recently admitted to the hospital for palpitations, and he had cardiac monitoring, cardiology consultation and an echocardiogram performed at that time. Patient was just discharged home yesterday. I do not feel that another admission is necessary at this time and patient agrees. Will discharge patient home at this time with instructions for close outpatient PCP follow-up. Patient was instructed to have a low threshold for return to the ED should his symptoms worsen. - Lab Data Result diagrams: 08/08/20 17:40 08/08/20 17:40 Lab Results 08/08/20 08/08/20 08/08/20 Range/Units 17:40 17:40 17:40 WBC 9.7 (3.8-10.6) k/uL RBC 5.17 (4.30-5.90) m/uL Hgb 15.0 (13.0-17.5) gm/dL Hct 44.6 (39.0-53.0) % MCV 86.3 (80.0-100.0) fL MCH 29.0 (25.0-35.0) pg MCHC 33.6 (31.0-37.0) g/dL RDW 12.7 (11.5-15.5) % Plt Count 297 (150-450) k/uL MPV 6.7 Neutrophils % 66 % Lymphocytes % 27 % Monocytes % 5 % Eosinophils % 1 % Basophils % 1 % Neutrophils # 6.4 (1.3-7.7) k/uL Lymphocytes # 2.7 (1.0-4.8) k/uL Monocytes # 0.5 (0-1.0) k/uL Eosinophils # 0.1 (0-0.7) k/uL Basophils # 0.1 (0-0.2) k/uL PT 10.9 (9.0-12.0) sec INR 1.0 (<1.2) APTT 24.9 (22.0-30.0) sec Sodium 142 (137-145) mmol/L Potassium 3.8 (3.5-5.1) mmol/L Chloride 101 (98-107) mmol/L Carbon Dioxide 28 (22-30) mmol/L Anion Gap 13 mmol/L BUN 13 (9-20) mg/dL Creatinine 0.80 (0.66-1.25) mg/dL Est GFR (CKD-EPI)AfAm >90 (>60 ml/min/1.73 sqM) Est GFR (CKD-EPI)NonAf >90 (>60 ml/min/1.73 sqM) Glucose 97 (74-99) mg/dL Calcium 9.5 (8.4-10.2) mg/dL Magnesium 1.9 (1.6-2.3) mg/dL Total Bilirubin 2.0 H (0.2-1.3) mg/dL AST 24 (17-59) U/L ALT 22 (4-49) U/L Alkaline Phosphatase 79 (38-126) U/L Troponin I (0.000-0.034) ng/mL Total Protein 8.3 H (6.3-8.2) g/dL Albumin 5.1 H (3.5-5.0) g/dL 08/08/20 Range/Units 17:40 WBC (3.8-10.6) k/uL RBC (4.30-5.90) m/uL Hgb (13.0-17.5) gm/dL Hct (39.0-53.0) % MCV (80.0-100.0) fL MCH (25.0-35.0) pg MCHC (31.0-37.0) g/dL RDW (11.5-15.5) % Plt Count (150-450) k/uL MPV Neutrophils % % Lymphocytes % % Monocytes % % Eosinophils % % Basophils % % Neutrophils # (1.3-7.7) k/uL Lymphocytes # (1.0-4.8) k/uL Monocytes # (0-1.0) k/uL Eosinophils # (0-0.7) k/uL Basophils # (0-0.2) k/uL PT (9.0-12.0) sec INR (<1.2) APTT (22.0-30.0) sec Sodium (137-145) mmol/L Potassium (3.5-5.1) mmol/L Chloride (98-107) mmol/L Carbon Dioxide (22-30) mmol/L Anion Gap mmol/L BUN (9-20) mg/dL Creatinine (0.66-1.25) mg/dL Est GFR (CKD-EPI)AfAm (>60 ml/min/1.73 sqM) Est GFR (CKD-EPI)NonAf (>60 ml/min/1.73 sqM) Glucose (74-99) mg/dL Calcium (8.4-10.2) mg/dL Magnesium (1.6-2.3) mg/dL Total Bilirubin (0.2-1.3) mg/dL AST (17-59) U/L ALT (4-49) U/L Alkaline Phosphatase (38-126) U/L Troponin I <0.012 (0.000-0.034) ng/mL Total Protein (6.3-8.2) g/dL Albumin (3.5-5.0) g/dL Disposition Clinical Impression: Palpitations, PVCs (premature ventricular contractions) Disposition: HOME SELF-CARE Condition: Stable Instructions (If sedation given, give patient instructions): Heart Palpitations (ED) Additional Instructions: Return to the ER immediately should you develop any significant pain, chest pain, shortness of breath, a fever, feeling dizzy or faint, or new or worsening symptoms. Follow up closely with your primary care provider. Is patient prescribed a controlled substance at d/c from ED?: No Referrals: Salvador Junior MD [Primary Care Provider] - 1-2 days Time of Disposition: 22:14
[2020-08-08 18:03] LABS: Basophils # (A) 0.1 k/uL (0-0.2); Basophils % (A) 1 %; Eosinophils # (A) 0.1 k/uL (0-0.7); Eosinophils % (A) 1 %; HCT 44.6 % (39.0-53.0); Lymphocytes # (A) 2.7 k/uL (1.0-4.8); Lymphocytes % (A) 27 %; MCHC 33.6 g/dL (31.0-37.0); MCV 86.3 fL (80.0-100.0); Mean Platelet Volume 6.7; Monocytes # (A) 0.5 k/uL (0-1.0); Monocytes % (A) 5 %; Neutrophils # (A) 6.4 k/uL (1.3-7.7); Neutrophils % (A) 66 %; Platelet Count 297 k/uL (150-450); RBC 5.17 m/uL (4.30-5.90); RDW 12.7 % (11.5-15.5); WBC 9.7 k/uL (3.8-10.6)
[2020-08-08 18:10] LABS: Partial Thromboplastin Time 24.9 sec (22.0-30.0); Prothrombin Time 10.9 sec (9.0-12.0)
[2020-08-08 18:21] LABS: ALT 22 U/L (4-49); AST 24 U/L (17-59); African American GFR (CKD) >90 (>60 ml/min/1.73 sqM); Albumin 5.1 g/dL (3.5-5.0); Alkaline Phosphatase 79 U/L (38-126); Anion Gap 13 mmol/L; Blood Urea Nitrogen 13 mg/dL (9-20); Calcium 9.5 mg/dL (8.4-10.2); Carbon Dioxide 28 mmol/L (22-30); Chloride 101 mmol/L (98-107); Glucose 97 mg/dL (74-99); Magnesium 1.9 mg/dL (1.6-2.3); Non-African American GFR(CKD) >90 (>60 ml/min/1.73 sqM); Potassium 3.8 mmol/L (3.5-5.1); Sodium 142 mmol/L (137-145); Total Protein 8.3 g/dL (6.3-8.2)
--- NOTE | 2020-08-08 18:43 | XR ---
EXAMINATION TYPE: XR chest 2V DATE OF EXAM: 08/08/2020 COMPARISON: 08/06/2020 HISTORY: Dysrhythmia. TECHNIQUE: 2 views FINDINGS: Heart and mediastinum are normal. Lungs are clear. Diaphragm is normal. Bony thorax appears normal. The pulmonary vascularity is normal. IMPRESSION: Normal chest. No change.
[2020-08-08 19:59] VITALS: RESP 18
[2020-08-08] MEDS ORDERED: LORazepam 2 MG/ML INJ IV STA (21:30)
[2020-08-08 22:31] VITALS: BP 141/96; PULSE 70
== END 2020-08-08 22:31 | disposition home or self-care (01) ==
LOC: EC 17:10
DX: I49.3 Ventricular premature depolarization (principal); F41.9 Anxiety disorder, unspecified; F32.9 Major depressive disorder, single episode, unspecified; F90.9 Attention-deficit hyperactivity disorder, unspecified type; F43.10 Post-traumatic stress disorder, unspecified; I25.2 Old myocardial infarction; I25.119 Atherosclerotic heart disease of native coronary artery with unspecified angina pectoris; K21.9 Gastro-esophageal reflux disease without esophagitis; I10 Essential (primary) hypertension; M19.90 Unspecified osteoarthritis, unspecified site; Z79.82 Long term (current) use of aspirin; Z79.899 Other long term (current) drug therapy; Z88.0 Allergy status to penicillin; Z87.891 Personal history of nicotine dependence; Z95.5 Presence of coronary angioplasty implant and graft
CPT/HCPCS: 36415; 93005; 80053; 83735; 84484; 85025; 85610; 85730; 71046; 99285; 96374; J2060

== ENCOUNTER 2020-08-11 23:01 | Emergency (ER) | payer MEDICARE, OTHER ==
[2020-08-11 23:10] VITALS: BP 152/108; RESP 18; TEMP 98.4
[2020-08-11] MEDS ORDERED: SODIUM CHLORIDE 0.9% 1,000 ML IV STA (23:33)
[2020-08-11 23:57] LABS: Basophils % (A) 0 %; Eosinophils # (A) 0.1 k/uL (0-0.7); Eosinophils % (A) 1 %; HCT 41.7 % (39.0-53.0); HGB 14.3 gm/dL (13.0-17.5); Lymphocytes # (A) 2.3 k/uL (1.0-4.8); Lymphocytes % (A) 25 %; MCH 28.9 pg (25.0-35.0); MCHC 34.3 g/dL (31.0-37.0); MCV 84.3 fL (80.0-100.0); Mean Platelet Volume 6.5; Monocytes # (A) 0.4 k/uL (0-1.0); Monocytes % (A) 4 %; Neutrophils # (A) 6.4 k/uL (1.3-7.7); Neutrophils % (A) 69 %; Platelet Count 296 k/uL (150-450); RBC 4.95 m/uL (4.30-5.90); RDW 12.4 % (11.5-15.5); WBC 9.3 k/uL (3.8-10.6)
[2020-08-12 00:06] LABS: ALT 19 U/L (4-49); AST 21 U/L (17-59); African American GFR (CKD) >90 (>60 ml/min/1.73 sqM); Albumin 4.8 g/dL (3.5-5.0); Alkaline Phosphatase 88 U/L (38-126); Anion Gap 9 mmol/L; Blood Urea Nitrogen 10 mg/dL (9-20); Calcium 9.5 mg/dL (8.4-10.2); Carbon Dioxide 26 mmol/L (22-30); Chloride 104 mmol/L (98-107); Glucose 100 mg/dL (74-99); Non-African American GFR(CKD) >90 (>60 ml/min/1.73 sqM); Potassium 3.6 mmol/L (3.5-5.1); Sodium 139 mmol/L (137-145); Total Bilirubin 1.8 mg/dL (0.2-1.3); Total Protein 7.3 g/dL (6.3-8.2)
[2020-08-12 00:39] LABS: Amorphous Sediment,Urine Occasional /hpf; Appearance,Urine Clear (Clear); Bacteria,Urine Rare /hpf; Bilirubin,Urine Negative (Negative); Blood,Urine Small (Negative); Color,Urine Yellow; Glucose,Urine (UA) Negative (Negative); Hyaline Casts,Urine 1 /lpf (0-2); Ketones,Urine Negative (Negative); Leukocyte Esterase,Urine Negative (Negative); Mucus,Urine Many /hpf; Nitrite,Urine Negative (Negative); Protein,Urine Trace (Negative); RBC,Urine 2 /hpf (0-5); Specific Gravity,Urine 1.023 (1.001-1.035); Squamous Epithelial Cell,Urine <1 /hpf (0-4); WBC,Urine 3 /hpf (0-5)
[2020-08-12 00:41] LABS: Amphetamine Screen,Urine Not Detected (NotDetected); Barbiturate Screen,Urine Not Detected (NotDetected); Benzodiazepines Screen,Urine Detected (NotDetected); Cocaine Screen,Urine Not Detected (NotDetected); Methadone Screen, Urine Not Detected (NotDetected); Opiate Screen,Urine Detected (NotDetected); Oxycodone Screen, Urine Not Detected (NotDetected); Phencyclidine Screen,Urine Not Detected (NotDetected); Tricyclic Antidepressant,Urine Not Detected (NotDetected); Urn Cannabinoid Scrn Not Detected (NotDetected)
--- NOTE | 2020-08-12 00:49 | ED ---
Anxiety HPI - General Chief Complaint: Anxiety Stated Complaint: Anxiety Time Seen by Provider: 08/11/20 23:11 Source: patient Mode of arrival: ambulatory - History of Present Illness Initial Comments: Patient is a 45-year-old male presenting to the emergency Department with comp laints of increasing anxiety. Patient has been seen in the ER multiple times in the past 1-2 weeks for similar complaints. Patient states he does have a history of anxiety. Patient states about 5 years ago he had a cardiac arrest and heart attack, ever since then his anxiety has increased. He does have intermittent palpitations. He has been worked up for this, including normal EKGs, troponins and a normal echo. Patient states he was given a prescription for Xanax for his anxiety, he does not feel like this works. They did give him a perception for Ativan, he did pick it up today but he has not tried this. Patient was in the ER a few days ago for same complaint, they did give him IV a ntibiotics and he said that he felt a lot better. Patient states at this time, he has no chest pain, no shortness of breath. He states he feels "very exhausted." He states he does have an appointment with a counselor next week. He has been trying to have a follow-up appointment with Dr. Lynch's office. Patient's is here with him now and states that patient has not been eating, he sits at home and worries about his next palpitations and then he has a panic attack. Patient states he's also been under a lot of stress over the past year, he has anxiety regarding Covid. He denies any suicide or homicidal thoughts. He has no further complaints at this time. On arrival to the ER, he is slightly hypertensive at 152/108, rest of vitals are normal. - Related Data Home Medications: Home Medications Medication Instructions Recorded Confirmed Pantoprazole Sodium [Protonix] 40 mg PO DAILY 09/02/17 08/08/20 Prasugrel [Effient] 10 mg PO DAILY 09/02/17 08/08/20 Rosuvastatin [Crestor] 10 mg PO HS 09/02/17 08/08/20 Aspirin EC [Ecotrin Low Dose] 81 mg PO DAILY 09/04/19 08/08/20 HYDROcodone/APAP 7.5-325MG [[place] 1 tab PO Q4H PRN 09/04/19 08/08/20 7.5-325] ALPRAZolam [Xanax] 0.5 mg PO DAILY PRN 08/06/20 08/08/20 Docusate [Colace] 100 mg PO DAILY 08/06/20 08/08/20 Ergocalciferol [Vitamin D2 (1250 1,250 mcg PO SA 08/06/20 08/08/20 Mcg = 66154 Iu)] Fexofenadine/Pseudoephedrine 1 tab PO DAILY 08/06/20 08/08/20 [Ce-D 24 Hour Tablet] Multivit-Min/Folic/Vit K/Lycop 1 tab PO DAILY 08/06/20 08/08/20 [Men's Multivitamin Tablet] lisinopriL 10 mg PO DAILY 08/06/20 08/08/20 PARoxetine [Paxil] 10 mg PO DAILY 08/08/20 08/08/20 Previous Rx's Medication Instructions Recorded Metoprolol Tartrate [Lopressor] 12.5 mg PO BID 30 Days #60 dose 08/07/20 Allergies/Adverse Reactions: Allergies Allergy/AdvReac Type Severity Reaction Status Date / Time amoxicillin [Amoxicillin] AdvReac thrush Verified 08/11/20 23:10 Penicillins AdvReac Thrush Verified 08/11/20 23:10 Review of Systems ROS Statement: Those systems with pertinent positive or pertinent negative responses have been documented in the HPI. ROS Other: All systems not noted in ROS Statement are negative. Past Medical History Past Medical History: Coronary Artery Disease (CAD), Chest Pain / Angina, GERD/Reflux, Hypertension, Myocardial Infarction ([place]), Osteoarthritis (OA) Additional Past Medical History / Comment(s): 07-14-15 admitted with stemi,cardiac arrest v-fib. other past med hx includes: KIDNEY STONES, DDD, PAST WORK INJURY 800 POUND I BEAM DROPPED ON PT- BROKEN BACK.BUT PT REFUSED SX, PT STATED THAT PER AN MRI HE HAD THAT NOW THERE ARE 3 TUMORS GROWING IN AREA OF INJURY Last Myocardial Infarction Date:: 07-14-15 History of Any Multi-Drug Resistant Organisms: None Reported Past Surgical History: Heart Catheterization With Stent Additional Past Surgical History / Comment(s): Two stents in 2010 and re-done 2013. 07-14-15 stent to rca Past Anesthesia/Blood Transfusion Reactions: No Reported Reaction Additional Past Anesthesia/Blood Transfusion Reaction / Comment(s): CLAUSTERPHOBIA Date of Last Stent Placement:: 2013 Past Psychological History: ADD/ADHD, Anxiety, Depression, PTSD Smoking Status: Former smoker Past Alcohol Use History: None Reported Past Drug Use History: None Reported - Past Family History Father Family Medical History: Coronary Artery Disease (CAD), Hyperlipidemia, Myocardial Infarction ([place]) Additional Family Medical History / Comment(s): Had 3 triple bypass surg Mother Family Medical History: Coronary Artery Disease (CAD) Additional Family Medical History / Comment(s): History of stents General Exam - General Exam Comments Initial Comments: GENERAL: Patient is well-developed and well-nourished. Patient is nontoxic and in no acute distress. HEAD: Atraumatic, normocephalic. EYES: Pupils equal round and reactive to light, extraocular movements intact, sclera anicteric, conjunctiva are normal. Eyelids were unremarkable. ENT: TMs normal, nares patent, oropharynx clear without exudates. Moist mucous membranes. NECK: Normal range of motion, supple without lymphadenopathy or JVD. LUNGS: Unlabored respirations. Breath sounds clear to auscultation bilaterally and equal. No wheezes rales or rhonchi. HEART: Regular rate and rhythm without murmurs, rubs or gallops. ABDOMEN: Soft, nontender, normoactive bowel sounds. No guarding, no rebound. No masses appreciated. : Deferred MUSCULOSKELETAL: Normal extremities with adequate strength and normal range of motion, no pitting or edema. No clubbing or cyanosis. NEUROLOGICAL: Patient is alert and oriented x 3. Motor and sensory are also intact. Cranial nerves II through XII grossly intact. Symmetrical smile. Normal speech, normal gait. PSYCH: Normal mood, normal affect. SKIN: Warm, Dry, normal turgor, no rashes or lesions noted. Limitations: no limitations Course Vital Signs 08/11/20 08/12/20 23:03 00:00 Temperature 98.4 F Pulse Rate 94 Pulse Rate [ 63 Asphalt Raker ] Respiratory 18 Rate Blood Pressure 152/108 O2 Sat by Pulse 96 Oximetry Medical Decision Making - Medical Decision Making Patient is a 45-year-old male here for anxiety. Patient has been hospital a few times in the past week for similar complaints. He has had recent cardiac workup including echo with normal results. He does have an appointment with a counselor next week. Denies any suicidal thoughts. Patient's labs are normal, normal troponin. EKG shows no signs of acute ischemia. Patient has no complaints at this time, no chest pain or shortness of breath today. Exam is unremarkable. He states he feels "exhausted." I discussed the patient and his symptoms mostly related to his anxiety. I did recommend taking the Ativan that he was recently prescribed for acute bouts of his anxiety. I also recommended continuing with his counselor appointment. He can follow-up with his PCP. Patient is stable for discharge. Patient is in agreement with this plan of care. Return parameters were discussed with the patient and they verbalized understanding. Case discussed with Dr. Easley. - Lab Data Result diagrams: 08/11/20 23:46 08/11/20 23:46 Lab Results 08/11/20 08/11/20 08/11/20 Range/Units 23:46 23:46 23:46 WBC 9.3 (3.8-10.6) k/uL RBC 4.95 (4.30-5.90) m/uL Hgb 14.3 (13.0-17.5) gm/dL Hct 41.7 (39.0-53.0) % MCV 84.3 (80.0-100.0) fL MCH 28.9 (25.0-35.0) pg MCHC 34.3 (31.0-37.0) g/dL RDW 12.4 (11.5-15.5) % Plt Count 296 (150-450) k/uL MPV 6.5 Neutrophils % 69 % Lymphocytes % 25 % Monocytes % 4 % Eosinophils % 1 % Basophils % 0 % Neutrophils # 6.4 (1.3-7.7) k/uL Lymphocytes # 2.3 (1.0-4.8) k/uL Monocytes # 0.4 (0-1.0) k/uL Eosinophils # 0.1 (0-0.7) k/uL Basophils # 0.0 (0-0.2) k/uL Sodium 139 (137-145) mmol/L Potassium 3.6 (3.5-5.1) mmol/L Chloride 104 (98-107) mmol/L Carbon Dioxide 26 (22-30) mmol/L Anion Gap 9 mmol/L BUN 10 (9-20) mg/dL Creatinine 0.67 (0.66-1.25) mg/dL Est GFR (CKD-EPI)AfAm >90 (>60 ml/min/1.73 sqM) Est GFR (CKD-EPI)NonAf >90 (>60 ml/min/1.73 sqM) Glucose 100 H (74-99) mg/dL Calcium 9.5 (8.4-10.2) mg/dL Total Bilirubin 1.8 H (0.2-1.3) mg/dL AST 21 (17-59) U/L ALT 19 (4-49) U/L Alkaline Phosphatase 88 (38-126) U/L Troponin I <0.012 (0.000-0.034) ng/mL Total Protein 7.3 (6.3-8.2) g/dL Albumin 4.8 (3.5-5.0) g/dL Urine Color Urine Appearance (Clear) Urine pH (5.0-8.0) Ur Specific [place] (1.001-1.035) Urine Protein (Negative) Urine Glucose (UA) (Negative) Urine Ketones (Negative) Urine Blood (Negative) Urine Nitrite (Negative) Urine Bilirubin (Negative) Urine Urobilinogen (<2.0) mg/dL Ur Leukocyte Esterase (Negative) Urine RBC (0-5) /hpf Urine WBC (0-5) /hpf Ur Squamous Epith Cells (0-4) /hpf Amorphous Sediment (None) /hpf Urine Bacteria (None) /hpf Hyaline Casts (0-2) /lpf Urine Mucus (None) /hpf Urine Opiates Screen (NotDetected) Ur Oxycodone Screen (NotDetected) Urine Methadone Screen (NotDetected) Ur Propoxyphene Screen (NotDetected) Ur Barbiturates Screen (NotDetected) U Tricyclic Antidepress (NotDetected) Ur Phencyclidine Scrn (NotDetected) Ur Amphetamines Screen (NotDetected) U Methamphetamines Scrn (NotDetected) U Benzodiazepines Scrn (NotDetected) Urine Cocaine Screen (NotDetected) U Marijuana (THC) Screen (NotDetected) 08/11/20 Range/Units 23:58 WBC (3.8-10.6) k/uL RBC (4.30-5.90) m/uL Hgb (13.0-17.5) gm/dL Hct (39.0-53.0) % MCV (80.0-100.0) fL MCH (25.0-35.0) pg MCHC (31.0-37.0) g/dL RDW (11.5-15.5) % Plt Count (150-450) k/uL MPV Neutrophils % % Lymphocytes % % Monocytes % % Eosinophils % % Basophils % % Neutrophils # (1.3-7.7) k/uL Lymphocytes # (1.0-4.8) k/uL Monocytes # (0-1.0) k/uL Eosinophils # (0-0.7) k/uL Basophils # (0-0.2) k/uL Sodium (137-145) mmol/L Potassium (3.5-5.1) mmol/L Chloride (98-107) mmol/L Carbon Dioxide (22-30) mmol/L Anion Gap mmol/L BUN (9-20) mg/dL Creatinine (0.66-1.25) mg/dL Est GFR (CKD-EPI)AfAm (>60 ml/min/1.73 sqM) Est GFR (CKD-EPI)NonAf (>60 ml/min/1.73 sqM) Glucose (74-99) mg/dL Calcium (8.4-10.2) mg/dL Total Bilirubin (0.2-1.3) mg/dL AST (17-59) U/L ALT (4-49) U/L Alkaline Phosphatase (38-126) U/L Troponin I (0.000-0.034) ng/mL Total Protein (6.3-8.2) g/dL Albumin (3.5-5.0) g/dL Urine Color Yellow Urine Appearance Clear (Clear) Urine pH 6.0 (5.0-8.0) Ur Specific [place] 1.023 (1.001-1.035) Urine Protein Trace H (Negative) Urine Glucose (UA) Negative (Negative) Urine Ketones Negative (Negative) Urine Blood Small H (Negative) Urine Nitrite Negative (Negative) Urine Bilirubin Negative (Negative) Urine Urobilinogen 4.0 (<2.0) mg/dL Ur Leukocyte Esterase Negative (Negative) Urine RBC 2 (0-5) /hpf Urine WBC 3 (0-5) /hpf Ur Squamous Epith Cells <1 (0-4) /hpf Amorphous Sediment Occasional H (None) /hpf Urine Bacteria Rare H (None) /hpf Hyaline Casts 1 (0-2) /lpf Urine Mucus Many H (None) /hpf Urine Opiates Screen Detected H (NotDetected) Ur Oxycodone Screen Not Detected (NotDetected) Urine Methadone Screen Not Detected (NotDetected) Ur Propoxyphene Screen Not Detected (NotDetected) Ur Barbiturates Screen Not Detected (NotDetected) U Tricyclic Antidepress Not Detected (NotDetected) Ur Phencyclidine Scrn Not Detected (NotDetected) Ur Amphetamines Screen Not Detected (NotDetected) U Methamphetamines Scrn Not Detected (NotDetected) U Benzodiazepines Scrn Detected H (NotDetected) Urine Cocaine Screen Not Detected (NotDetected) U Marijuana (THC) Screen Not Detected (NotDetected) - EKG Data EKG Comments: Normal sinus rhythm, incomplete RBBB, no signs of acute ischemia. Similar to previous EKG in 08/08/2020. Ventricular rate 61, WA interval 126, QT 412. Disposition Clinical Impression: Acute anxiety Disposition: HOME SELF-CARE Condition: Stable Instructions (If sedation given, give patient instructions): Generalized Anxiety Disorder (ED) Additional Instructions: Please return to the Emergency Department if symptoms worsen or any other concerns. Please follow up with your regular doctor as well as counselor as discussed. Is patient prescribed a controlled substance at d/c from ED?: No Referrals: Salvador Junior MD [Primary Care Provider] - 1-2 days
[2020-08-12 01:15] VITALS: PULSE 63
[2020-08-12] MEDS ORDERED: LORazepam 1 MG TAB PO STA (01:28)
== END 2020-08-12 01:47 | disposition home or self-care (01) ==
LOC: EC 23:01
DX: F41.9 Anxiety disorder, unspecified (principal); I10 Essential (primary) hypertension; K21.9 Gastro-esophageal reflux disease without esophagitis; M19.90 Unspecified osteoarthritis, unspecified site; I25.119 Atherosclerotic heart disease of native coronary artery with unspecified angina pectoris; I25.2 Old myocardial infarction; F32.9 Major depressive disorder, single episode, unspecified; F43.10 Post-traumatic stress disorder, unspecified; Z79.02 Long term (current) use of antithrombotics/antiplatelets; Z79.82 Long term (current) use of aspirin; Z79.899 Other long term (current) drug therapy; Z88.0 Allergy status to penicillin; Z87.891 Personal history of nicotine dependence
CPT/HCPCS: 36415; 80053; 80306; 81001; 84484; 85025; 93005; 96360; 96361; 99283

== ENCOUNTER 2020-08-16 00:45 | Emergency (ER) | payer MEDICARE, OTHER ==
[2020-08-16 00:49] VITALS: BP 164/96; PULSE 81; RESP 20; TEMP 98.7
[2020-08-16] MEDS ORDERED: LIDOCAINE 1% INJ 10MG/ML (20 ML MDV) SQ ONE (00:50)
[2020-08-16] MEDS ORDERED: MAG HYDROX/AL HYDROX/SIMETH 30 ML, HYOSCYAMINE ELIXIR 10 ML, LIDOCAINE VISCOUS 2% 10 ML PO STA ×3 (01:05)
--- NOTE | 2020-08-16 01:09 | ED ---
ENT HPI - General Chief complaint: Dental/Oral Stated complaint: Dental Pain Time Seen by Provider: 08/16/20 00:50 Source: patient, family Mode of arrival: ambulatory Limitations: no limitations - History of Present Illness Initial comments: 45-year-old male with history of dental pain presents emergency Department with a chief complaint of dental pain. Patient reports history of poor dentition and has not seen a dentist in quite some time. Patient reports pain is located near tooth #15. Patient is requesting antibiotics. Patient also has history of GERD and is requesting a GI cocktail which typically works well for him. He denies any chest pain shortness of breath. Denies fever or chills. Denies any swelling in the face or neck. - Related Data Home Medications Medication Instructions Recorded Confirmed Pantoprazole Sodium [Protonix] 40 mg PO DAILY 09/02/17 08/08/20 Prasugrel [Effient] 10 mg PO DAILY 09/02/17 08/08/20 Rosuvastatin [Crestor] 10 mg PO HS 09/02/17 08/08/20 Aspirin EC [Ecotrin Low Dose] 81 mg PO DAILY 09/04/19 08/08/20 HYDROcodone/APAP 7.5-325MG [[place] 1 tab PO Q4H PRN 09/04/19 08/08/20 7.5-325] ALPRAZolam [Xanax] 0.5 mg PO DAILY PRN 08/06/20 08/08/20 Docusate [Colace] 100 mg PO DAILY 08/06/20 08/08/20 Ergocalciferol [Vitamin D2 (1250 1,250 mcg PO SA 08/06/20 08/08/20 Mcg = 53949 Iu)] Fexofenadine/Pseudoephedrine 1 tab PO DAILY 08/06/20 08/08/20 [Ce-D 24 Hour Tablet] Multivit-Min/Folic/Vit K/Lycop 1 tab PO DAILY 08/06/20 08/08/20 [Men's Multivitamin Tablet] lisinopriL 10 mg PO DAILY 08/06/20 08/08/20 PARoxetine [Paxil] 10 mg PO DAILY 08/08/20 08/08/20 Previous Rx's Medication Instructions Recorded Metoprolol Tartrate [Lopressor] 12.5 mg PO BID 30 Days #60 dose 08/07/20 Doxycycline Monohydrate [Monodox] 100 mg PO Q12HR #20 cap 08/16/20 Allergies Allergy/AdvReac Type Severity Reaction Status Date / Time amoxicillin [Amoxicillin] AdvReac thrush Verified 08/16/20 00:49 Penicillins AdvReac Thrush Verified 08/16/20 00:49 Review of Systems ROS Statement: Those systems with pertinent positive or pertinent negative responses have been documented in the HPI. ROS Other: All systems not noted in ROS Statement are negative. Past Medical History Past Medical History: Coronary Artery Disease (CAD), Chest Pain / Angina, GERD/Reflux, Hypertension, Myocardial Infarction ([place]), Osteoarthritis ([place]) Additional Past Medical History / Comment(s): 07-14-15 admitted with stemi,cardiac arrest v-fib. other past med hx includes: KIDNEY STONES, DDD, PAST WORK INJURY 800 POUND I BEAM DROPPED ON PT- BROKEN BACK.BUT PT REFUSED SX, PT STATED THAT PER AN MRI HE HAD THAT NOW THERE ARE 3 TUMORS GROWING IN AREA OF INJURY Last Myocardial Infarction Date:: 07-14-15 History of Any Multi-Drug Resistant Organisms: None Reported Past Surgical History: Heart Catheterization With Stent Additional Past Surgical History / Comment(s): Two stents in 2010 and re-done 2013. 07-14-15 stent to rca Past Anesthesia/Blood Transfusion Reactions: No Reported Reaction Additional Past Anesthesia/Blood Transfusion Reaction / Comment(s): CLAUSTERPHOBIA Date of Last Stent Placement:: 2013 Past Psychological History: ADD/ADHD, Anxiety, Depression, PTSD Smoking Status: Former smoker Past Alcohol Use History: None Reported Past Drug Use History: None Reported - Past Family History Father Family Medical History: Coronary Artery Disease (CAD), Hyperlipidemia, Myocardial Infarction ([place]) Additional Family Medical History / Comment(s): Had 3 triple bypass surg Mother Family Medical History: Coronary Artery Disease (CAD) Additional Family Medical History / Comment(s): History of stents General Exam Limitations: no limitations General appearance: alert, in no apparent distress, obese Head exam: Present: atraumatic, normocephalic, normal inspection Eye exam: Present: normal appearance, PERRL, EOMI Pupils: Present: normal accommodation ENT exam: Present: normal exam, mucous membranes moist, TM's normal bilaterally, normal external ear exam. Absent: normal oropharynx (Poor dentition. Caries in tooth #15. No signs of periapical abscess) Neck exam: Present: normal inspection, full ROM. Absent: tenderness, lymphadenopathy Respiratory exam: Present: normal lung sounds bilaterally. Absent: respiratory distress Cardiovascular Exam: Present: regular rate, normal rhythm, normal heart sounds GI/Abdominal exam: Present: soft. Absent: distended Extremities exam: Present: normal inspection, full ROM, normal capillary refill. Absent: tenderness, pedal edema, joint swelling Back exam: Present: normal inspection, full ROM. Absent: tenderness, CVA tenderness (R), CVA tenderness (L) Neurological exam: Present: alert, oriented X3 Psychiatric exam: Present: normal affect, normal mood Skin exam: Present: warm, dry, intact, normal color Course Vital Signs 08/16/20 00:46 Temperature 98.7 F Pulse Rate 81 Respiratory 20 Rate Blood Pressure 164/96 O2 Sat by Pulse 96 Oximetry Medical Decision Making - Medical Decision Making 45-year-old male presents to the emergency department with chief complaint dental pain. No signs of periapical abscess. He does have a dental caries tooth #15. Patient will be started on doxycycline because he is ALLERGIC to penicillins. Patient also given a GI cocktail per his request. He was offered analgesia, but declined. Return parameters discussed the patient was understanding and agreeable. Case discussed with Disposition Clinical Impression: Dental caries, Toothache Disposition: HOME SELF-CARE Condition: Stable Instructions (If sedation given, give patient instructions): Toothache (ED) Additional Instructions: Take prescribed medication as directed. Follow up with a dentist. Please return to the Emergency Department if symptoms worsen or any other concerns. Prescriptions: Doxycycline Monohydrate [Monodox] 100 mg PO Q12HR #20 cap Is patient prescribed a controlled substance at d/c from ED?: No Referrals: Salvador Junior MD [Primary Care Provider] - 1-2 days Time of Disposition: 01:09
== END 2020-08-16 01:26 | disposition home or self-care (01) ==
LOC: EC 00:45
DX: K02.9 Dental caries, unspecified (principal); F32.9 Major depressive disorder, single episode, unspecified; F41.9 Anxiety disorder, unspecified; I10 Essential (primary) hypertension; I21.9 Acute myocardial infarction, unspecified; I25.10 Atherosclerotic heart disease of native coronary artery without angina pectoris; I25.2 Old myocardial infarction; K21.9 Gastro-esophageal reflux disease without esophagitis; M19.90 Unspecified osteoarthritis, unspecified site; Z79.82 Long term (current) use of aspirin; Z87.891 Personal history of nicotine dependence; Z88.0 Allergy status to penicillin

== ENCOUNTER 2020-09-01 18:59 | Emergency (ER) | payer MEDICARE, OTHER ==
--- NOTE | 2020-09-01 19:34 | ED ---
General Adult HPI - General Chief complaint: Chest Pain Stated complaint: Chest pressure/High HR/sob Time Seen by Provider: 09/01/20 19:21 Source: patient, RN notes reviewed, old records reviewed Mode of arrival: ambulatory Limitations: no limitations - History of Present Illness Initial comments: 45-year-old male history of CAD status post multiple stents presenting for evaluation of elevated heart rate, dyspnea. He has had some indigestion which is been present for the past several months. He states his last heart cath was 5 years ago. He denies associated vomiting or diaphoresis. No cough or fever. - Related Data Home Medications Medication Instructions Recorded Confirmed Pantoprazole Sodium [Protonix] 40 mg PO DAILY 09/02/17 08/08/20 Prasugrel [Effient] 10 mg PO DAILY 09/02/17 08/08/20 Rosuvastatin [Crestor] 10 mg PO HS 09/02/17 08/08/20 Aspirin EC [Ecotrin Low Dose] 81 mg PO DAILY 09/04/19 08/08/20 HYDROcodone/APAP 7.5-325MG [[place] 1 tab PO Q4H PRN 09/04/19 08/08/20 7.5-325] ALPRAZolam [Xanax] 0.5 mg PO DAILY PRN 08/06/20 08/08/20 Docusate [Colace] 100 mg PO DAILY 08/06/20 08/08/20 Ergocalciferol [Vitamin D2 (1250 1,250 mcg PO SA 08/06/20 08/08/20 Mcg = 14416 Iu)] Fexofenadine/Pseudoephedrine 1 tab PO DAILY 08/06/20 08/08/20 [Ce-D 24 Hour Tablet] Multivit-Min/Folic/Vit K/Lycop 1 tab PO DAILY 08/06/20 08/08/20 [Men's Multivitamin Tablet] lisinopriL 10 mg PO DAILY 08/06/20 08/08/20 PARoxetine [Paxil] 10 mg PO DAILY 08/08/20 08/08/20 Previous Rx's Medication Instructions Recorded Metoprolol Tartrate [Lopressor] 12.5 mg PO BID 30 Days #60 dose 08/07/20 Doxycycline Monohydrate [Monodox] 100 mg PO Q12HR #20 cap 08/16/20 Allergies Allergy/AdvReac Type Severity Reaction Status Date / Time amoxicillin [Amoxicillin] AdvReac thrush Verified 09/01/20 19:08 Penicillins AdvReac Thrush Verified 09/01/20 19:08 Review of Systems ROS Statement: Those systems with pertinent positive or pertinent negative responses have been documented in the HPI. ROS Other: All systems not noted in ROS Statement are negative. Past Medical History Past Medical History: Coronary Artery Disease (CAD), Chest Pain / Angina, GERD/Reflux, Hypertension, Myocardial Infarction ([place]), Osteoarthritis ([place]) Additional Past Medical History / Comment(s): 07-14-15 admitted with stemi,cardiac arrest v-fib. other past med hx includes: KIDNEY STONES, DDD, PAST WORK INJURY 800 POUND I BEAM DROPPED ON PT- BROKEN BACK.BUT PT REFUSED SX, PT STATED THAT PER AN MRI HE HAD THAT NOW THERE ARE 3 TUMORS GROWING IN AREA OF INJURY Last Myocardial Infarction Date:: 2010, 07-14-15 History of Any Multi-Drug Resistant Organisms: None Reported Past Surgical History: Heart Catheterization With Stent Additional Past Surgical History / Comment(s): Two stents in 2010 and re-done 2013. 07-14-15 stent to rca Past Anesthesia/Blood Transfusion Reactions: No Reported Reaction Additional Past Anesthesia/Blood Transfusion Reaction / Comment(s): CLAUSTERPHOBIA Date of Last Stent Placement:: 2013 Past Psychological History: ADD/ADHD, Anxiety, Depression, PTSD Smoking Status: Former smoker Past Alcohol Use History: None Reported Past Drug Use History: None Reported - Past Family History Father Family Medical History: Coronary Artery Disease (CAD), Hyperlipidemia, Myocardial Infarction ([place]) Additional Family Medical History / Comment(s): Had 3 triple bypass surg Mother Family Medical History: Coronary Artery Disease (CAD) Additional Family Medical History / Comment(s): History of stents General Exam Limitations: no limitations General appearance: alert, in no apparent distress Head exam: Present: atraumatic, normocephalic Eye exam: Present: normal appearance, PERRL ENT exam: Present: normal exam Neck exam: Present: normal inspection. Absent: tenderness, meningismus Respiratory exam: Present: normal lung sounds bilaterally. Absent: respiratory distress, wheezes Cardiovascular Exam: Present: regular rate, normal rhythm GI/Abdominal exam: Present: soft. Absent: distended, tenderness, guarding Extremities exam: Present: normal inspection, normal capillary refill. Absent: pedal edema, calf tenderness Neurological exam: Present: alert, oriented X3, CN II-XII intact. Absent: motor sensory deficit Psychiatric exam: Present: normal affect, normal mood Skin exam: Present: warm, dry, intact. Absent: cyanosis, diaphoretic Course Vital Signs 09/01/20 09/01/20 19:04 20:27 Temperature 98.1 F 98.5 F Pulse Rate 105 H 74 Respiratory 18 16 Rate Blood Pressure 154/88 148/88 O2 Sat by Pulse 98 96 Oximetry EKG Findings - EKG Comments: EKG Findings:: EKG: Normal sinus rhythm, incomplete right bundle-branch block, rate of 81, MO interval 136, QRS duration 94, QTC [address] segment elevation. Medical Decision Making - Medical Decision Making 45-year-old male presenting for evaluation of palpitations, dyspnea or patient well-appearing with stable vitals, EKG is [address] segment elevation or definitive signs of ischemia. He has a normal CBC, normal CMP, negative d- dimer, negative troponin. Given the patient's heart history of did plan to observe him first-year cardiac enzymes. Telemetry, and cardiology consultation. I discussed this with the admitting physician however the patient changed his mind states that he would refer to be discharged home. He does not want to be admitted. His is at bedside and also prefers discharge. There are given strict return parameters. They will follow up with the financial reporting analyst. - Lab Data Result diagrams: 09/01/20 19:42 09/01/20 19:42 Lab Results 09/01/20 09/01/20 09/01/20 Range/Units 19:42 19:42 19:42 WBC 8.8 (3.8-10.6) k/uL RBC 4.95 (4.30-5.90) m/uL Hgb 14.8 (13.0-17.5) gm/dL Hct 42.7 (39.0-53.0) % MCV 86.1 (80.0-100.0) fL MCH 29.8 (25.0-35.0) pg MCHC 34.6 (31.0-37.0) g/dL RDW 12.6 (11.5-15.5) % Plt Count 298 (150-450) k/uL MPV 6.8 Neutrophils % 76 % Lymphocytes % 18 % Monocytes % 4 % Eosinophils % 1 % Basophils % 0 % Neutrophils # 6.7 (1.3-7.7) k/uL Lymphocytes # 1.6 (1.0-4.8) k/uL Monocytes # 0.4 (0-1.0) k/uL Eosinophils # 0.1 (0-0.7) k/uL Basophils # 0.0 (0-0.2) k/uL PT 10.0 (9.0-12.0) sec INR 0.9 (<1.2) APTT 23.1 (22.0-30.0) sec D-Dimer <0.17 (<0.60) mg/L FEU Sodium 139 (137-145) mmol/L Potassium 3.6 (3.5-5.1) mmol/L Chloride 103 (98-107) mmol/L Carbon Dioxide 25 (22-30) mmol/L Anion Gap 11 mmol/L BUN 13 (9-20) mg/dL Creatinine 0.66 (0.66-1.25) mg/dL Est GFR (CKD-EPI)AfAm >90 (>60 ml/min/1.73 sqM) Est GFR (CKD-EPI)NonAf >90 (>60 ml/min/1.73 sqM) Glucose 130 H (74-99) mg/dL Calcium 9.7 (8.4-10.2) mg/dL Magnesium 1.7 (1.6-2.3) mg/dL Total Bilirubin 1.8 H (0.2-1.3) mg/dL AST 24 (17-59) U/L ALT 18 (4-49) U/L Alkaline Phosphatase 85 (38-126) U/L Troponin I (0.000-0.034) ng/mL NT-Pro-B Natriuret Pep pg/mL Total Protein 7.9 (6.3-8.2) g/dL Albumin 5.1 H (3.5-5.0) g/dL Lipase 57 (23-300) U/L 09/01/20 09/01/20 Range/Units 19:42 19:42 WBC (3.8-10.6) k/uL RBC (4.30-5.90) m/uL Hgb (13.0-17.5) gm/dL Hct (39.0-53.0) % MCV (80.0-100.0) fL MCH (25.0-35.0) pg MCHC (31.0-37.0) g/dL RDW (11.5-15.5) % Plt Count (150-450) k/uL MPV Neutrophils % % Lymphocytes % % Monocytes % % Eosinophils % % Basophils % % Neutrophils # (1.3-7.7) k/uL Lymphocytes # (1.0-4.8) k/uL Monocytes # (0-1.0) k/uL Eosinophils # (0-0.7) k/uL Basophils # (0-0.2) k/uL PT (9.0-12.0) sec INR (<1.2) APTT (22.0-30.0) sec D-Dimer (<0.60) mg/L FEU Sodium (137-145) mmol/L Potassium (3.5-5.1) mmol/L Chloride (98-107) mmol/L Carbon Dioxide (22-30) mmol/L Anion Gap mmol/L BUN (9-20) mg/dL Creatinine (0.66-1.25) mg/dL Est GFR (CKD-EPI)AfAm (>60 ml/min/1.73 sqM) Est GFR (CKD-EPI)NonAf (>60 ml/min/1.73 sqM) Glucose (74-99) mg/dL Calcium (8.4-10.2) mg/dL Magnesium (1.6-2.3) mg/dL Total Bilirubin (0.2-1.3) mg/dL AST (17-59) U/L ALT (4-49) U/L Alkaline Phosphatase (38-126) U/L Troponin I <0.012 (0.000-0.034) ng/mL NT-Pro-B Natriuret Pep 32 pg/mL Total Protein (6.3-8.2) g/dL Albumin (3.5-5.0) g/dL Lipase (23-300) U/L Disposition Clinical Impression: Palpitations, Chest pain Disposition: HOME SELF-CARE Condition: Good Instructions (If sedation given, give patient instructions): Chest Pain (ED), Heart Palpitations (ED) Is patient prescribed a controlled substance at d/c from ED?: No Referrals: Nonstaff,Physician [REFERRING] - 1-2 days Karri Fagan MD [STAFF PHYSICIAN] - 1-2 days Time of Disposition: 21:04
[2020-09-01 19:50] LABS: Basophils % (A) 0 %; Eosinophils # (A) 0.1 k/uL (0-0.7); Eosinophils % (A) 1 %; HCT 42.7 % (39.0-53.0); HGB 14.8 gm/dL (13.0-17.5); Lymphocytes # (A) 1.6 k/uL (1.0-4.8); Lymphocytes % (A) 18 %; MCH 29.8 pg (25.0-35.0); MCHC 34.6 g/dL (31.0-37.0); MCV 86.1 fL (80.0-100.0); Mean Platelet Volume 6.8; Monocytes # (A) 0.4 k/uL (0-1.0); Monocytes % (A) 4 %; Neutrophils # (A) 6.7 k/uL (1.3-7.7); Neutrophils % (A) 76 %; Platelet Count 298 k/uL (150-450); RBC 4.95 m/uL (4.30-5.90); RDW 12.6 % (11.5-15.5); WBC 8.8 k/uL (3.8-10.6)
[2020-09-01 20:02] LABS: ALT 18 U/L (4-49); AST 24 U/L (17-59); African American GFR (CKD) >90 (>60 ml/min/1.73 sqM); Albumin 5.1 g/dL (3.5-5.0); Alkaline Phosphatase 85 U/L (38-126); Anion Gap 11 mmol/L; Blood Urea Nitrogen 13 mg/dL (9-20); Calcium 9.7 mg/dL (8.4-10.2); Carbon Dioxide 25 mmol/L (22-30); Chloride 103 mmol/L (98-107); Glucose 130 mg/dL (74-99); Lipase 57 U/L (23-300); Magnesium 1.7 mg/dL (1.6-2.3); Non-African American GFR(CKD) >90 (>60 ml/min/1.73 sqM); Potassium 3.6 mmol/L (3.5-5.1); Sodium 139 mmol/L (137-145); Total Bilirubin 1.8 mg/dL (0.2-1.3); Total Protein 7.9 g/dL (6.3-8.2)
--- NOTE | 2020-09-01 20:02 | XR ---
EXAMINATION TYPE: XR chest 2V DATE OF EXAM: 09/01/2020 COMPARISON: 08/08/2020 HISTORY: Chest pain TECHNIQUE: FINDINGS: Heart and mediastinum are normal. Lungs are clear. Diaphragm is normal. Bony thorax appears normal. IMPRESSION: Normal chest. No change.
[2020-09-01 20:18] LABS: D-Dimer <0.17 mg/L FEU (<0.60); INR 0.9 (<1.2); Partial Thromboplastin Time 23.1 sec (22.0-30.0)
[2020-09-01 20:28] VITALS: BP 148/88; PULSE 74; RESP 16; TEMP 98.5
[2020-09-01] MEDS ORDERED: SODIUM CHLORIDE 0.9% 500 ML 500 ML IV ONE (20:35)
[2020-09-01] MEDS ORDERED: ASPIRIN 325 MG TAB PO STA (20:35)
== END 2020-09-01 21:00 | disposition home or self-care (01) ==
LOC: EC 18:59
DX: R07.89 Other chest pain (principal); R00.2 Palpitations; I25.10 Atherosclerotic heart disease of native coronary artery without angina pectoris; I25.2 Old myocardial infarction; I10 Essential (primary) hypertension; I21.9 Acute myocardial infarction, unspecified; M19.90 Unspecified osteoarthritis, unspecified site; F32.9 Major depressive disorder, single episode, unspecified; F41.9 Anxiety disorder, unspecified; K21.9 Gastro-esophageal reflux disease without esophagitis; Z87.891 Personal history of nicotine dependence; Z87.442 Personal history of urinary calculi; Z95.5 Presence of coronary angioplasty implant and graft
CPT/HCPCS: 36415; 71046; 80053; 83690; 83735; 83880; 84484; 85025; 85379; 85610; 85730; 93005; 99285

== ENCOUNTER 2021-04-21 08:20 | Emergency (ER) | payer MEDICARE, OTHER ==
[2021-04-21 08:23] VITALS: RESP 16; TEMP 98.2
[2021-04-21] MEDS ORDERED: ACET/COD 300 MG/30 MG STARTER PACK 6 TAB BTL PO STA (08:54)
[2021-04-21] MEDS ORDERED: MORPHINE SULFATE 4 MG/ML SYRINGE IM STA (08:54)
--- NOTE | 2021-04-21 09:09 | ED ---
ENT HPI - General Chief complaint: Dental/Oral Stated complaint: Dental Pain/Swelling Time Seen by Provider: 04/21/21 08:37 Source: patient, RN notes reviewed Mode of arrival: ambulatory Limitations: no limitations - History of Present Illness Initial comments: Patient is a 45-year-old male that presents to the emergency department complaining of right lower dental pain. He notes he does have a history of a cracked tooth that they partially removed many years ago. Patient also notes that he does have a scheduled procedure in [place] to get most of his teeth removed due to poor dentition and dental hygiene. Patient notes that over the past she days he noted some localized pain to the right lower side. This pain is localized around his old chipped tooth. Patient notes that he can tolerate penicillin and just wants pain control at this time. Patient denied any other issues or complaints. He was otherwise well-appearing. He denied chest pain shortness of breath headache nausea vomiting diarrhea constipation fever fatigue chills. - Related Data Home Medications Medication Instructions Recorded Confirmed Pantoprazole Sodium [Protonix] 40 mg PO DAILY 09/02/17 08/08/20 Prasugrel [Effient] 10 mg PO DAILY 09/02/17 08/08/20 Rosuvastatin [Crestor] 10 mg PO HS 09/02/17 08/08/20 Aspirin EC [Ecotrin Low Dose] 81 mg PO DAILY 09/04/19 08/08/20 HYDROcodone/APAP 7.5-325MG [[place] 1 tab PO Q4H PRN 09/04/19 08/08/20 7.5-325] ALPRAZolam [Xanax] 0.5 mg PO DAILY PRN 08/06/20 08/08/20 Docusate [Colace] 100 mg PO DAILY 08/06/20 08/08/20 Ergocalciferol [Vitamin D2 (1250 1,250 mcg PO SA 08/06/20 08/08/20 Mcg = 57096 Iu)] Fexofenadine/Pseudoephedrine 1 tab PO DAILY 08/06/20 08/08/20 [Ce-D 24 Hour Tablet] Multivit-Min/Folic/Vit K/Lycop 1 tab PO DAILY 08/06/20 08/08/20 [Men's Multivitamin Tablet] lisinopriL 10 mg PO DAILY 08/06/20 08/08/20 PARoxetine [Paxil] 10 mg PO DAILY 08/08/20 08/08/20 Previous Rx's Medication Instructions Recorded Metoprolol Tartrate [Lopressor] 12.5 mg PO BID 30 Days #60 dose 08/07/20 Doxycycline Monohydrate [Monodox] 100 mg PO Q12HR #20 cap 08/16/20 Penicillin V Potassium [Pen Vee K] 500 mg PO QID #40 tablet 04/21/21 Allergies Allergy/AdvReac Type Severity Reaction Status Date / Time amoxicillin [Amoxicillin] AdvReac thrush Verified 04/21/21 08:23 Penicillins AdvReac Thrush Verified 04/21/21 08:23 Review of Systems ROS Statement: Those systems with pertinent positive or pertinent negative responses have been documented in the HPI. ROS Other: All systems not noted in ROS Statement are negative. Past Medical History Past Medical History: Coronary Artery Disease (CAD), Chest Pain / Angina, GERD/Reflux, Hypertension, Myocardial Infarction ([place]), Osteoarthritis (OA) Additional Past Medical History / Comment(s): 07-14-15 admitted with stemi,cardiac arrest v-fib. other past med hx includes: KIDNEY STONES, DDD, PAST WORK INJURY 800 POUND I BEAM DROPPED ON PT- BROKEN BACK.BUT PT REFUSED SX, PT STATED THAT PER AN MRI HE HAD THAT NOW THERE ARE 3 TUMORS GROWING IN AREA OF INJURY Last Myocardial Infarction Date:: 2010, 07-14-15 History of Any Multi-Drug Resistant Organisms: None Reported Past Surgical History: Heart Catheterization With Stent Additional Past Surgical History / Comment(s): Two stents in 2010 and re-done 2013. 07-14-15 stent to rca Past Anesthesia/Blood Transfusion Reactions: No Reported Reaction Additional Past Anesthesia/Blood Transfusion Reaction / Comment(s): CLAUSTERPHOBIA Date of Last Stent Placement:: 2013 Past Psychological History: ADD/ADHD, Anxiety, Depression, PTSD Smoking Status: Former smoker Past Alcohol Use History: None Reported Past Drug Use History: None Reported - Past Family History Father Family Medical History: Coronary Artery Disease (CAD), Hyperlipidemia, Myocardial Infarction ([place]) Additional Family Medical History / Comment(s): Had 3 triple bypass surg Mother Family Medical History: Coronary Artery Disease (CAD) Additional Family Medical History / Comment(s): History of stents General Exam Limitations: no limitations General appearance: alert, in no apparent distress Head exam: Present: atraumatic, normocephalic, normal inspection Eye exam: Present: normal appearance, PERRL, EOMI. Absent: scleral icterus, conjunctival injection, periorbital swelling ENT exam: Present: normal exam, mucous membranes moist Expanded Teeth exam: Present: dental caries (Too numerous to count), other (Several missing teeth, overall poor dentition and poor hygiene.) Neck exam: Present: normal inspection Respiratory exam: Present: normal lung sounds bilaterally. Absent: respiratory distress, wheezes, rales, rhonchi, stridor Cardiovascular Exam: Present: regular rate, normal rhythm, normal heart sounds. Absent: systolic murmur, diastolic murmur, rubs, gallop, clicks Extremities exam: Present: normal inspection, full ROM, normal capillary refill. Absent: tenderness, pedal edema, joint swelling, calf tenderness Neurological exam: Present: alert, oriented X3 Psychiatric exam: Present: normal affect, normal mood Skin exam: Present: warm, dry, intact, normal color. Absent: rash Course Vital Signs 04/21/21 08:22 Temperature 98.2 F Pulse Rate 79 Respiratory 16 Rate Blood Pressure 154/90 O2 Sat by Pulse 98 Oximetry Medical Decision Making - Medical Decision Making 45-year-old male complaining of right-sided lower dental pain. Upon physical exam there was no dental abscess or abnormal erythema noted. Patient states he is still having pain and would like symptomatically control until his dental procedure in about a month. Patient was given 4 mg of morphine. Patient is agreeable with discharge home with antibiotics and, 3 starter pack. Case discussed with Dr. [place], patient discharge home. Disposition Clinical Impression: Dental infection Disposition: HOME SELF-CARE Condition: Stable Instructions (If sedation given, give patient instructions): Toothache (ED) Additional Instructions: Please return to the Emergency Department if symptoms worsen or any other concerns. Follow-up with primary care 1-2 days. Take antibiotics as prescribed until complete. Take pain medication as prescribed. Follow-up with dentist as planned. Prescriptions: Penicillin V Potassium [Pen Vee K] 500 mg PO QID #40 tablet Is patient prescribed a controlled substance at d/c from ED?: No Referrals: Salvador Junior MD [Primary Care Provider] - 1-2 days Time of Disposition: 09:09
[2021-04-21 09:29] VITALS: BP 151/89; PULSE 76
== END 2021-04-21 09:28 | disposition home or self-care (01) ==
LOC: EC 08:20
DX: K04.7 Periapical abscess without sinus (principal); I25.10 Atherosclerotic heart disease of native coronary artery without angina pectoris; K21.9 Gastro-esophageal reflux disease without esophagitis; I10 Essential (primary) hypertension; I25.2 Old myocardial infarction; M19.90 Unspecified osteoarthritis, unspecified site; F41.9 Anxiety disorder, unspecified; F32.9 Major depressive disorder, single episode, unspecified; F90.9 Attention-deficit hyperactivity disorder, unspecified type; F43.12 Post-traumatic stress disorder, chronic; Z79.82 Long term (current) use of aspirin; Z88.0 Allergy status to penicillin; Z87.442 Personal history of urinary calculi; Z87.891 Personal history of nicotine dependence; Z95.5 Presence of coronary angioplasty implant and graft; Z86.74 Personal history of sudden cardiac arrest
CPT/HCPCS: 99282; 96372; J2270

== ENCOUNTER 2021-07-15 10:44 | Observation (INO) | payer MEDICARE, OTHER ==
[2021-07-15 11:33] LABS: Basophils % (A) 0 %; Eosinophils % (A) 0 %; HGB 13.5 gm/dL (13.0-17.5); Lymphocytes # (A) 1.8 k/uL (1.0-4.8); Lymphocytes % (A) 18 %; MCH 29.1 pg (25.0-35.0); MCHC 33.7 g/dL (31.0-37.0); MCV 86.5 fL (80.0-100.0); Mean Platelet Volume 6.9; Monocytes # (A) 0.4 k/uL (0-1.0); Monocytes % (A) 4 %; Neutrophils # (A) 7.5 k/uL (1.3-7.7); Neutrophils % (A) 77 %; Platelet Count 299 k/uL (150-450); RBC 4.63 m/uL (4.30-5.90); RDW 12.9 % (11.5-15.5); WBC 9.8 k/uL (3.8-10.6)
[2021-07-15 11:45] LABS: INR 0.9 (<1.2); Partial Thromboplastin Time 25.7 sec (22.0-30.0); Prothrombin Time 10.4 sec (9.0-12.0)
[2021-07-15 11:51] LABS: ALT 39 U/L (4-49); AST 40 U/L (17-59); African American GFR (CKD) >90 (>60 ml/min/1.73 sqM); Albumin 4.5 g/dL (3.5-5.0); Alkaline Phosphatase 84 U/L (38-126); Anion Gap 8 mmol/L; Blood Urea Nitrogen 17 mg/dL (9-20); Calcium 9.3 mg/dL (8.4-10.2); Carbon Dioxide 23 mmol/L (22-30); Chloride 105 mmol/L (98-107); Glucose 152 mg/dL (74-99); Lipase 45 U/L (23-300); Magnesium 1.6 mg/dL (1.6-2.3); Non-African American GFR(CKD) >90 (>60 ml/min/1.73 sqM); Potassium 4.1 mmol/L (3.5-5.1); Sodium 136 mmol/L (137-145); Total Bilirubin 1.3 mg/dL (0.2-1.3); Total Protein 7.6 g/dL (6.3-8.2)
--- NOTE | 2021-07-15 12:47 | ED ---
Chest Pain HPI - General Chief Complaint: Chest Pain Stated Complaint: chest pressure Source: patient Mode of arrival: wheelchair Limitations: no limitations - History of Present Illness Initial Comments: 46-year-old male past medical history of coronary artery disease, 3 [place], 5 stents presents to the emergency room with reported chest pain. He states that it started last night. Described as a pressure, burning sensation in the central portion of his chest. Denies symptoms similar to previous. No associated nausea, vomiting or diaphoresis. Denies fevers, chills or cough. He denies missing any doses of his medications to include his Effient. Patient to take his medications this morning. He denies any nausea or vomiting. Last stress test and catheterization was in 2016. No other alleviating, presenting modifying factors - Related Data Home Medications Medication Instructions Recorded Confirmed Pantoprazole Sodium [Protonix] 40 mg PO BID 09/02/17 07/15/21 Prasugrel [Effient] 10 mg PO DAILY 09/02/17 07/15/21 Aspirin EC [Ecotrin Low Dose] 81 mg PO DAILY 09/04/19 07/15/21 HYDROcodone/APAP 7.5-325MG [[place] 1 tab PO Q4H PRN 09/04/19 07/15/21 7.5-325] ALPRAZolam [Xanax] 0.25 mg PO DAILY PRN 08/06/20 07/15/21 Ergocalciferol [Vitamin D2 (1250 1,250 mcg PO [place] 08/06/20 07/15/21 Mcg = 34525 Iu)] lisinopriL 10 mg PO DAILY 08/06/20 07/15/21 Clindamycin HCl 300 mg PO QID 07/15/21 07/15/21 Escitalopram [Lexapro] 10 mg PO DAILY 07/15/21 07/15/21 Rosuvastatin [Crestor] 20 mg PO HS 07/15/21 07/15/21 Sucralfate [Carafate] 1 gm PO ACHS PRN 07/15/21 07/15/21 Allergies Allergy/AdvReac Type Severity Reaction Status Date / Time amoxicillin [Amoxicillin] AdvReac thrush Verified 07/15/21 11:50 Penicillins AdvReac Thrush Verified 07/15/21 11:50 Review of Systems ROS Statement: Those systems with pertinent positive or pertinent negative responses have been documented in the HPI. ROS Other: All systems not noted in ROS Statement are negative. EKG Findings - EKG Comments: EKG Findings:: EKG demonstrates normal sinus rhythm with a ventricular rate of 67. ME 126. QRS 92. QTC of 418. No acute ST segment elevations or depression s concerning for ischemic changes. Past Medical History Past Medical History: Coronary Artery Disease (CAD), Chest Pain / Angina, GERD/Reflux, Hypertension, Myocardial Infarction ([place]), Osteoarthritis ([place]) Additional Past Medical History / Comment(s): 07-14-15 admitted with stemi,cardiac arrest v-fib. other past med hx includes: KIDNEY STONES, DDD, PAST WORK INJURY 800 POUND I BEAM DROPPED ON PT- BROKEN BACK.BUT PT REFUSED SX, PT STATED THAT PER AN MRI HE HAD THAT NOW THERE ARE 3 TUMORS GROWING IN AREA OF INJURY Last Myocardial Infarction Date:: 2010, 07-14-15 History of Any Multi-Drug Resistant Organisms: None Reported Past Surgical History: Heart Catheterization With Stent Additional Past Surgical History / Comment(s): Two stents in 2010 and re-done 2013. 07-14-15 stent to rca Past Anesthesia/Blood Transfusion Reactions: No Reported Reaction Additional Past Anesthesia/Blood Transfusion Reaction / Comment(s): CLAUSTERPHOBIA Date of Last Stent Placement:: 2013 Past Psychological History: ADD/ADHD, Anxiety, Depression, PTSD Smoking Status: Former smoker Past Alcohol Use History: None Reported Past Drug Use History: None Reported - Past Family History Father Family Medical History: Coronary Artery Disease (CAD), Hyperlipidemia, Myocardial Infarction ([place]) Additional Family Medical History / Comment(s): Had 3 triple bypass surg Mother Family Medical History: Coronary Artery Disease (CAD) Additional Family Medical History / Comment(s): History of stents General Exam Limitations: no limitations Course Vital Signs 07/15/21 07/15/21 07/15/21 10:47 11:50 13:00 Temperature 97.1 F L Pulse Rate 76 56 L 58 L Respiratory 18 18 16 Rate Blood Pressure 141/81 125/74 90/47 O2 Sat by Pulse 96 96 97 Oximetry 07/15/21 14:46 Temperature Pulse Rate 55 L Respiratory 18 Rate Blood Pressure 98/49 O2 Sat by Pulse 100 Oximetry Chest Pain MDM - MDM Upon arrival patient was placed into room 5. There was physical exam was performed. He is placed on continuous pulse ox and cardiac monitoring. 12-lead EKG was obtained. Laboratories is reviewed and troponin is negative. Chest x- ray demonstrates no acute process. D-dimer 0.21. Patient's pain is manageable at this time and does not require pain medication. Patient will be admitted for serial troponins and cardiac evaluation. Spoke with Dr. Gupta who agreed to admit the patient Disposition Clinical Impression: Chest pain Disposition: ADMITTED IP TO THIS HOSP Condition: Stable Is patient prescribed a controlled substance at d/c from ED?: No Decision to Admit Reason: Admit from EC Decision Date: 07/15/21 Decision Time: 14:03
--- NOTE | 2021-07-15 13:08 | XR ---
EXAMINATION TYPE: XR chest 2V DATE OF EXAM: 07/15/2021 COMPARISON: 09/01/2020 HISTORY: 46-year-old male cough and pain TECHNIQUE: PA and lateral views FINDINGS: Heart normal size. Aorta and pulmonary vasculature within normal limits. No consolidation or pleural effusion. IMPRESSION: No acute cardiopulmonary process.
[2021-07-15] MEDS ORDERED: NALOXONE 0.4 MG/ML 1 ML VIAL IV PRN (14:03)
[2021-07-15] MEDS ORDERED: ASPIRIN 81 MG PO STA (14:05)
[2021-07-15] MEDS ORDERED: ALPRAZolam 0.25 MG TAB PO PRN (15:32)
[2021-07-15] MEDS ORDERED: SUCRALFATE 1 GM TAB PO PRN (15:32)
[2021-07-15] MEDS: MAGNESIUM SULFATE-D5W PMX 1 GM in DEXTROSE/WATER 1 100ML.BAG IVPB SCH ×2 (16:21→17:47)
[2021-07-15] MEDS: HYDROcodone/APAP 7.5-325MG 1 EACH TAB PO PRN ×2 (16:22→22:39)
[2021-07-15] MEDS: PANTOPRAZOLE 40 MG TABLET PO SCH (17:47)
[2021-07-15] MEDS ORDERED: ATORVASTATIN 40 MG TAB PO SCH (21:00)
--- NOTE | 2021-07-15 22:32 | P.HPIM ---
History of Present Illness H&P Date: 07/15/21 Chief Complaint: chest pain Patient is a 46-year-old male with a known history of coronary artery disease and multiple stent placement, hypertension, history of PR and cardiac arrest with V. fib in 2016, ADD/ADHD, anxiety/depression PTSD and previous history of smoking presents to ER with complaints of mid retrosternal chest pain extending from the epigastric region and burning sensation and bloating for the past 5 days. Symptoms worsened since last night. Presents with nausea. No radiation of the pain. No headache or dizziness or lightheadedness. No diaphoresis. Patient has been having tooth infection and was on Augmentin prior to getting his chest discomfort. Patient was again started on clindamycin 2 days ago. No complaints of abdominal pain. No diarrhea. No dysuria. Patient states that he has been compliant with his medications. Chest x-ray showed no acute cardiopulmonary process EKG showed normal sinus rhythm. Laboratory showed WBC 9.8 hemoglobin 13.5 and platelets 299 and D-dimer 0.21 Sodium 136 potassium 4.1 chloride 105 bicarb is 23 BUN 17 and creatinine 0.83 blood sugar is 152 Troponin x3 - Magnesium 1.6 proBNP 1 3 and lipase level is 45 Coronavirus PCR not detected. Review of Systems Constitutional: Patient denies any fever or chills . No generalized weakness or weight loss. Abdomen: Patient does complain of nausea and bloating sensation in the abdomen. No diarrhea. Cardiovascular: Patient does have midsternal chest pain no associated short of breath no palpitations. Respiratory: patient denied any cough or sputum production. No shortness of breath Neurologic: Patient denied any numbness or tingling headache. Musculoskeletal: Patient denies any complaints of joint swelling or deformity. Skin: Negative Psychiatric: Negative Endocrine: No heat or cold intolerance. No recent weight gain. Genitourinary: No dysuria or hematuria. All other 14 point ROS negative except the above Past Medical History Past Medical History: Coronary Artery Disease (CAD), Chest Pain / Angina, GERD/Reflux, Hypertension, Myocardial Infarction ([place]), Osteoarthritis ([place]) Additional Past Medical History / Comment(s): 07-14-15 admitted with stemi,cardiac arrest v-fib. other past med hx includes: KIDNEY STONES, DDD, PAST WORK INJURY 800 POUND I BEAM DROPPED ON PT- BROKEN BACK.BUT PT REFUSED SX, PT STATED THAT PER AN MRI HE HAD THAT NOW THERE ARE 3 TUMORS GROWING IN AREA OF INJURY Last Myocardial Infarction Date:: 2010, 07-14-15 History of Any Multi-Drug Resistant Organisms: None Reported Past Surgical History: Heart Catheterization With Stent Additional Past Surgical History / Comment(s): Two stents in 2010 and re-done 2013. 07-14-15 stent to rca Past Anesthesia/Blood Transfusion Reactions: No Reported Reaction Additional Past Anesthesia/Blood Transfusion Reaction / Comment(s): CLAUSTERPHOBIA Date of Last Stent Placement:: 2013 Past Psychological History: ADD/ADHD, Anxiety, Depression, PTSD Smoking Status: Former smoker Past Alcohol Use History: None Reported Past Drug Use History: None Reported - Past Family History Father Family Medical History: Coronary Artery Disease (CAD), Hyperlipidemia, Myocardial Infarction ([place]) Additional Family Medical History / Comment(s): Had 3 triple bypass surg Mother Family Medical History: Coronary Artery Disease (CAD) Additional Family Medical History / Comment(s): History of stents Medications and Allergies Home Medications Medication Instructions Recorded Confirmed Type Pantoprazole Sodium [Protonix] 40 mg PO BID 09/02/17 07/15/21 History Prasugrel [Effient] 10 mg PO DAILY 09/02/17 07/15/21 History Aspirin EC [Ecotrin Low Dose] 81 mg PO DAILY 09/04/19 07/15/21 History HYDROcodone/APAP 7.5-325MG [[place]les 1 tab PO Q4H PRN 09/04/19 07/15/21 History 7.5-325] ALPRAZolam [Xanax] 0.25 mg PO DAILY PRN 08/06/20 07/15/21 History Ergocalciferol [Vitamin D2 (1250 1,250 mcg PO MO 08/06/20 07/15/21 History Mcg = 53784 Iu)] lisinopriL 10 mg PO DAILY 08/06/20 07/15/21 History Clindamycin HCl 300 mg PO QID 07/15/21 07/15/21 History Escitalopram [Lexapro] 10 mg PO DAILY 07/15/21 07/15/21 History Rosuvastatin [Crestor] 20 mg PO HS 07/15/21 07/15/21 History Sucralfate [Carafate] 1 gm PO ACHS PRN 07/15/21 07/15/21 History Allergies Allergy/AdvReac Type Severity Reaction Status Date / Time amoxicillin [Amoxicillin] AdvReac thrush Verified 07/15/21 11:50 Penicillins AdvReac Thrush Verified 07/15/21 11:50 Physical Exam Vitals: Vital Signs Temp Pulse Pulse Resp BP BP Pulse Ox 07/15/21 19:40 98.1 F 58 L 16 113/60 98 07/15/21 15:00 97.9 F 62 18 127/61 98 07/15/21 14:46 55 L 18 98/49 100 07/15/21 13:00 58 L 16 90/47 97 07/15/21 11:50 56 L 18 125/74 96 07/15/21 10:47 97.1 F L 76 18 141/81 96 Intake and Output 07/15/21 07/15/21 07/15/21 06:59 14:59 22:59 Intake Total 118 Balance 118 Intake: Oral 118 Other: Voiding Method Toilet # Voids 1 Weight 112.037 kg PHYSICAL EXAMINATION: Patient is lying in the bed comfortably, no acute distress, awake alert and oriented.. HEENT: Normocephalic. Neck is supple. Pupils reactive. Nostrils clear. Oral cavity is moist. Neck reveals no JVD, carotid bruits, or thyromegaly. CHEST EXAMINATION: Trachea is central. Symmetrical expansion. Lung salazar clear to auscultation and percussion. CARDIAC: Normal S1, S2 with no gallops. No murmurs ABDOMEN: Soft. Bowel sounds normal. No organomegaly. No abdominal bruits. Extremities: reveal no edema. No clubbing or cyanosis Neurologically awake, alert, oriented x3 with well-coordinated movements. No focal deficits noted Skin: No rash or skin lesions. Psychiatric: Cooperative. Nonsuicidal Musculoskeletal: No joint swelling or deformity. Normal range of motion. Results CBC & Chem 7: 07/15/21 11:15 07/15/21 11:15 Labs: Abnormal Lab Results - Last 24 Hours (Table) 07/15/21 Range/Units 11:15 Sodium 136 L (137-145) mmol/L Glucose 152 H (74-99) mg/dL Thrombosis Risk Factor Assmnt - DVT/VTE Prophylaxis DVT/VTE Prophylaxis: Pharmacologic Prophylaxis ordered - Choose All That Apply Any of the Below Risk Factors Present?: Yes Each Factor Represents 1 point: Age 41-60 years, Obesity (BMI >25) Other Risk Factors: No Other congenital or acquired thrombophilia - If yes, enter type in comment: No Thrombosis Risk Factor Assessment Total Risk Factor Score: 2 Thrombosis Risk Factor Assessment Level: Low Risk Assessment and Plan Assessment: Atypical chest pain. Rule out ACS. Burning chest pain along with bloating in the abdomen likely GI related with recent antibiotic use. Coronary artery disease with history of multiple stent placement x7 History PR and cardiac arrest due to V. fib in 2016. Hypertension History of renal stones Degenerative disc disease ADD/ADHD, anxiety/depression and PTSD Previous history of smoking Chronic back pain DVT prophylaxis with heparin subcu. Plan: Patient will be continued on telemetry monitoring. Serial EKG and troponin x3.. Will be continued on aspirin, Effient and statins. Patient will be continued on PPI and symptomatic management. Cardiology was consulted due to extensive history of coronary artery disease. Continue to follow closely. Time with Patient: Greater than 30
[2021-07-16] MEDS: HEPARIN SODIUM,PORCINE/PF 5,000 UNIT/0.5 ML SYRINGE SQ SCH ×2 (00:50→08:44)
[2021-07-16 08:12] VITALS: BP 110/58; PULSE 60; RESP 18; TEMP 97.6
[2021-07-16] MEDS: PANTOPRAZOLE 40 MG TABLET PO SCH (08:44)
[2021-07-16] MEDS ORDERED: ESCITALOPRAM 10 MG TAB PO SCH (09:00)
[2021-07-16] MEDS ORDERED: PRASUGREL 10 MG TAB PO SCH (09:00)
[2021-07-16] MEDS ORDERED: ASPIRIN 81 MG PO SCH (09:00)
--- NOTE | 2021-07-16 09:09 | P.CRDCN ---
History of Present Illness Consult date: 07/16/21 Chief complaint: chest discomfort History of present illness: This is a 46-year-old gentleman with known coronary artery disease and multiple stents in the past as well as hypertension and dyslipidemia who I follow in the office regularly presented to the hospital complaining of chest discomfort. He does have a component of anxiety and recently he was diagnosed with COVID-19 infection. He developed discomfort in the middle of the chest as well as in the epigastric area. The chest discomfort according to him is totally different from what he experienced before he underwent the stenting.It symptoms of shortness of breath or dizziness or lightheadedness or any feeling of heart racing or fluttering or presyncope or syncope. He underwent an EKG which showed sinus rhythm without any significant ST or T-wave abnormalities. He underwent cardiac enzymes and came in to be unremarkable. Currently the patient is chest pain-free and he would like to be discharged home. From the cardiac vascular standpoint of view, would get the patient up and around and if he is asymptomatic from the cardiac standpoint he can be discharged home and I will follow-up with him in the office as an outpatient. Past Medical History Past Medical History: Coronary Artery Disease (CAD), Chest Pain / Angina, GERD/Reflux, Hypertension, Myocardial Infarction ([place]), Osteoarthritis (OA) Additional Past Medical History / Comment(s): 07-14-15 admitted with stemi,cardiac arrest v-fib. other past med hx includes: KIDNEY STONES, DDD, PAST WORK INJURY 800 POUND I BEAM DROPPED ON PT- BROKEN BACK.BUT PT REFUSED SX, PT STATED THAT PER AN MRI HE HAD THAT NOW THERE ARE 3 TUMORS GROWING IN AREA OF INJURY Last Myocardial Infarction Date:: 07-14-15 History of Any Multi-Drug Resistant Organisms: None Reported Past Surgical History: Heart Catheterization With Stent Additional Past Surgical History / Comment(s): Two stents in 2010 and re-done 2013. 07-14-15 stent to rca Past Anesthesia/Blood Transfusion Reactions: No Reported Reaction Additional Past Anesthesia/Blood Transfusion Reaction / Comment(s): CLAUSTERPHOBIA Date of Last Stent Placement:: 2013 Past Psychological History: ADD/ADHD, Anxiety, Depression, PTSD Smoking Status: Former smoker Past Alcohol Use History: None Reported Past Drug Use History: None Reported - Past Family History Father Family Medical History: Coronary Artery Disease (CAD), Hyperlipidemia, Myocardial Infarction ([place]) Additional Family Medical History / Comment(s): Had 3 triple bypass surg Mother Family Medical History: Coronary Artery Disease (CAD) Additional Family Medical History / Comment(s): History of stents Medications and Allergies Home Medications Medication Instructions Recorded Confirmed Type Pantoprazole Sodium [Protonix] 40 mg PO BID 09/02/17 07/15/21 History Prasugrel [Effient] 10 mg PO DAILY 09/02/17 07/15/21 History Aspirin EC [Ecotrin Low Dose] 81 mg PO DAILY 09/04/19 07/15/21 History HYDROcodone/APAP 7.5-325MG [[place] 1 tab PO Q4H PRN 09/04/19 07/15/21 History 7.5-325] ALPRAZolam [Xanax] 0.25 mg PO DAILY PRN 08/06/20 07/15/21 History Ergocalciferol [Vitamin D2 (1250 1,250 mcg PO MO 08/06/20 07/15/21 History Mcg = 32813 Iu)] lisinopriL 10 mg PO DAILY 08/06/20 07/15/21 History Clindamycin HCl 300 mg PO QID 07/15/21 07/15/21 History Escitalopram [Lexapro] 10 mg PO DAILY 07/15/21 07/15/21 History Rosuvastatin [Crestor] 20 mg PO HS 07/15/21 07/15/21 History Sucralfate [Carafate] 1 gm PO ACHS PRN 07/15/21 07/15/21 History Allergies Allergy/AdvReac Type Severity Reaction Status Date / Time amoxicillin [Amoxicillin] AdvReac thrush Verified 07/15/21 11:50 Penicillins AdvReac Thrush Verified 07/15/21 11:50 Physical Exam Vitals: Vital Signs Temp Pulse Pulse Pulse Resp BP BP 07/16/21 07:00 97.6 F 60 18 110/58 07/16/21 02:05 97.9 F 72 16 115/73 07/15/21 19:40 98.1 F 58 L 16 113/60 07/15/21 15:00 97.9 F 62 18 127/61 07/15/21 14:46 55 L 18 98/49 07/15/21 13:00 58 L 16 90/47 07/15/21 11:50 56 L 18 125/74 07/15/21 10:47 97.1 F L 76 18 141/81 Pulse Ox 07/16/21 07:00 97 07/16/21 02:05 100 07/15/21 19:40 98 07/15/21 15:00 98 07/15/21 14:46 100 07/15/21 13:00 97 07/15/21 11:50 96 07/15/21 10:47 96 Intake and Output 07/15/21 07/16/21 07/16/21 22:59 06:59 14:59 Intake Total 118 Balance 118 Intake: Oral 118 Other: Voiding Method Toilet Toilet # Voids 1 1 - Constitutional General appearance: no acute distress - Respiratory Respiratory: bilateral: CTA - Cardiovascular Rhythm: regular Heart sounds: normal: S1, S2 Results 07/15/21 11:15 07/15/21 11:15 Cardiac Enzymes 07/15/21 07/15/21 07/15/21 Range/Units 11:15 11:15 15:58 AST 40 (17-59) U/L Troponin I <0.012 <0.012 (0.000-0.034) ng/mL 07/15/21 Range/Units 19:15 AST (17-59) U/L Troponin I <0.012 (0.000-0.034) ng/mL Coagulation 07/15/21 Range/Units 11:15 PT 10.4 (9.0-12.0) sec APTT 25.7 (22.0-30.0) sec CBC 07/15/21 Range/Units 11:15 WBC 9.8 (3.8-10.6) k/uL RBC 4.63 (4.30-5.90) m/uL Hgb 13.5 (13.0-17.5) gm/dL Hct 40.0 (39.0-53.0) % Plt Count 299 (150-450) k/uL Comprehensive Metabolic Panel 07/15/21 Range/Units 11:15 Sodium 136 L (137-145) mmol/L Potassium 4.1 (3.5-5.1) mmol/L Chloride 105 (98-107) mmol/L Carbon Dioxide 23 (22-30) mmol/L BUN 17 (9-20) mg/dL Creatinine 0.83 (0.66-1.25) mg/dL Glucose 152 H (74-99) mg/dL Calcium 9.3 (8.4-10.2) mg/dL AST 40 (17-59) U/L ALT 39 (4-49) U/L Alkaline Phosphatase 84 (38-126) U/L Total Protein 7.6 (6.3-8.2) g/dL Albumin 4.5 (3.5-5.0) g/dL Current Medications Generic Name Dose Route Start Last Admin Trade Name Freq PRN Reason Stop Dose Admin Hydrocodone Bitart/Acetaminophen 1 each 07/15/21 15:32 07/15/21 22:39 Hydrocodone/Apap 7.5-325mg 1 Each Tab PO 1 each Q4H PRN Administration Pain Alprazolam 0.25 mg 07/15/21 15:32 Alprazolam 0.25 Mg Tab PO DAILY PRN Anxiety Aspirin 81 mg 07/16/21 09:00 07/16/21 08:44 Aspirin 81 Mg PO 81 mg DAILY VJ Administration Atorvastatin Calcium 40 mg 07/15/21 21:00 07/15/21 20:46 Atorvastatin 40 Mg Tab PO 40 mg HS VJ Administration Escitalopram Oxalate 10 mg 07/16/21 09:00 07/16/21 08:44 Escitalopram 10 Mg Tab PO 10 mg DAILY VJ Administration Heparin Sodium (Porcine) 5,000 unit 07/16/21 00:00 07/16/21 08:44 Heparin Sodium,Porcine/Pf 5,000 Unit/0.5 Ml Syringe SQ Not Given Q8HR VJ Naloxone HCl 0.2 mg 07/15/21 14:03 Naloxone 0.4 Mg/Ml 1 Ml Vial IV Q2M PRN Opioid Reversal Pantoprazole Sodium 40 mg 07/15/21 17:30 07/16/21 08:44 Pantoprazole 40 Mg Tablet PO 40 mg AC-BID VJ Administration Prasugrel 10 mg 07/16/21 09:00 07/16/21 08:44 Prasugrel 10 Mg Tab PO 10 mg DAILY VJ Administration Sucralfate 1 gm 07/15/21 15:32 Sucralfate 1 Gm Tab PO ACHS PRN GI Upset Intake and Output 07/15/21 07/16/21 07/16/21 22:59 06:59 14:59 Intake Total 118 Balance 118 Intake: Oral 118 Other: Voiding Method Toilet Toilet # Voids 1 1 07/15/21 11:15 07/15/21 11:15 Assessment and Plan Assessment: assessment #1 atypical chest discomfort #2 coronary artery disease #3 hypertension #4 dyslipidemia Plan #1 acute coronary event was ruled out #2 with the patient up and around and if he is asymptomatic he potentially Be discharged home
[2021-07-16] MEDS: HYDROcodone/APAP 7.5-325MG 1 EACH TAB PO PRN (10:16)
[2021-07-16 11:59] VITALS: BMI 35.4
[2021-07-16 12:53] LABS: Basophils # (A) 0.03 X 10*3/uL (0.00-0.10); Basophils % (A) 0.3 %; Eosinophils # (A) 0.07 X 10*3/uL (0.04-0.35); Eosinophils % (A) 0.8 %; HCT 40.1 % (39.6-50.0); HGB 12.9 g/dL (13.0-17.0); Lymphocytes # (A) 2.36 X 10*3/uL (0.90-5.00); Lymphocytes % (A) 26.6 %; MCH 28.1 pg (27.0-32.0); MCHC 32.2 g/dL (32.0-37.0); MCV 87.4 fL (80.0-97.0); Mean Platelet Volume 9.9 fL (9.5-12.2); Monocytes # (A) 0.59 X 10*3/uL (0.20-1.00); Monocytes % (A) 6.7 %; Neutrophils # (A) 5.78 X 10*3/uL (1.80-7.70); Neutrophils % (A) 65.3 %; Platelet Count 327 X 10*3/uL (140-440); RBC 4.59 X 10*6/uL (4.40-5.60); RDW 12.9 % (11.5-14.5); WBC 8.86 X 10*3/uL (4.50-10.00)
[2021-07-16 13:02] LABS: African American GFR (CKD) 123.1 (60.0-200.0); BUN/Creat Ratio 18.82 Ratio (12.00-20.00); Blood Urea Nitrogen 15.9 mg/dL (9.0-27.0); Calcium 8.9 mg/dL (8.7-10.3); Carbon Dioxide 23.8 mmol/L (20.0-27.5); Chloride 102 mmol/L (96-109); Chol/HDL Ratio 4.62 Ratio; Glucose 160 mg/dL (70-110); LDL Cholesterol,Calculated 84.1 mg/dL (0.0-131.0); Non-African American GFR(CKD) 106.2 (60.0-200.0); Potassium 4.1 mmol/L (3.5-5.5); Sodium 139 mmol/L (135-145)
== END 2021-07-16 13:11 | disposition home or self-care (01) ==
LOC: EC 10:44 → 6NMEDSUR 14:03
PROVIDERS: ADMIT Internal Medicine; ATTEND Internal Medicine
DX: R07.89 Other chest pain (principal); I25.10 Atherosclerotic heart disease of native coronary artery without angina pectoris; R14.0 Abdominal distension (gaseous); I10 Essential (primary) hypertension; K21.9 Gastro-esophageal reflux disease without esophagitis; M19.90 Unspecified osteoarthritis, unspecified site; K04.7 Periapical abscess without sinus; F40.240 Claustrophobia; I25.2 Old myocardial infarction; F32.A Depression, unspecified; F43.10 Post-traumatic stress disorder, unspecified; F90.9 Attention-deficit hyperactivity disorder, unspecified type; F41.9 Anxiety disorder, unspecified; R11.0 Nausea; Z20.822 Contact with and (suspected) exposure to COVID-19; E66.9 Obesity, unspecified; Z68.35 Body mass index [BMI] 35.0-35.9, adult; G89.29 Other chronic pain; M54.9 Dorsalgia, unspecified; E78.5 Hyperlipidemia, unspecified; D49.89 Neoplasm of unspecified behavior of other specified sites; Z79.02 Long term (current) use of antithrombotics/antiplatelets; Z79.82 Long term (current) use of aspirin; Z79.899 Other long term (current) drug therapy; Z88.0 Allergy status to penicillin; Z86.74 Personal history of sudden cardiac arrest; Z87.442 Personal history of urinary calculi; Z87.891 Personal history of nicotine dependence; Z87.828 Personal history of other (healed) physical injury and trauma; Z95.5 Presence of coronary angioplasty implant and graft; Z82.49 Family history of ischemic heart disease and other diseases of the circulatory system; Z83.49 Family history of other endocrine, nutritional and metabolic diseases
CPT/HCPCS: 96365; 96366; 99285; 36415; 93005; 85379; 83880; 80061; 80053; 80048; 83690; 83735; 84484; 85025 ×2; 85610; 85730; 83036; 87635; 71046; G0378 ×2; J3475

== ENCOUNTER 2021-09-10 16:37 | Emergency (ER) | payer MEDICARE, OTHER ==
[2021-09-10 16:46] VITALS: BP 146/85; PULSE 69; RESP 16; TEMP 97.9
[2021-09-10] MEDS ORDERED: KETOROLAC 15 MG/ML 1 ML VIAL IM STA (17:22)
--- NOTE | 2021-09-10 17:34 | ED ---
ENT HPI - General Source: patient Mode of arrival: ambulatory Limitations: no limitations <Andreas Nunes - Last Filed: 09/10/21 17:57> <Minda Renee - Last Filed: 09/11/21 09:42> - General Chief complaint: Dental/Oral Stated complaint: Tooth pain, Dizziness Time Seen by Provider: 09/10/21 17:10 - History of Present Illness Initial comments: Patient is a 46-year-old male presenting with chief complaint of tooth pain. Patient has had issues with recurring tooth pain and infection, this most recent episode started 2 days ago. Patient finished a course of clindamycin on Sunday, the pain began on and began on the left lower side of the jaw. It has now spread to the ear and down the neck. Patient states that he has pain with swallowing. Patient has been taking Motrin, Aleve, Tylenol for pain relief which has not alleviated his symptoms. Patient has follow-up with his dentist scheduled by his not able to get in to see them over the weekend. Denies fever, chills, nausea, vomiting, headache, vision changes, chest pain, shortness of breath, dysphagia. (Andreas Nunes) - Related Data Home Medications Medication Instructions Recorded Confirmed Pantoprazole Sodium [Protonix] 40 mg PO BID 09/02/17 07/15/21 Prasugrel [Effient] 10 mg PO DAILY 09/02/17 07/15/21 Aspirin EC [Ecotrin Low Dose] 81 mg PO DAILY 09/04/19 07/15/21 HYDROcodone/APAP 7.5-325MG [[place] 1 tab PO Q4H PRN 09/04/19 07/15/21 7.5-325] ALPRAZolam [Xanax] 0.25 mg PO DAILY PRN 08/06/20 07/15/21 Ergocalciferol [Vitamin D2 (1250 1,250 mcg PO MO 08/06/20 07/15/21 Mcg = 31149 Iu)] lisinopriL 10 mg PO DAILY 08/06/20 07/15/21 Clindamycin HCl 300 mg PO QID 07/15/21 07/15/21 Escitalopram [Lexapro] 10 mg PO DAILY 07/15/21 07/15/21 Rosuvastatin [Crestor] 20 mg PO HS 07/15/21 07/15/21 Sucralfate [Carafate] 1 gm PO ACHS PRN 07/15/21 07/15/21 Previous Rx's Medication Instructions Recorded Clindamycin [Cleocin] 450 mg PO Q8H 7 Days #21 cap 09/10/21 Allergies Allergy/AdvReac Type Severity Reaction Status Date / Time amoxicillin [Amoxicillin] AdvReac thrush Verified 09/10/21 16:44 Penicillins AdvReac Thrush Verified 09/10/21 16:44 Review of Systems ROS Other: All systems not noted in ROS Statement are negative. <Andreas Nunes - Last Filed: 09/10/21 17:57> ROS Other: All systems not noted in ROS Statement are negative. <Minda Renee - Last Filed: 09/11/21 09:42> ROS Statement: Those systems with pertinent positive or pertinent negative responses have been documented in the HPI. Past Medical History Past Medical History: Coronary Artery Disease (CAD), Chest Pain / Angina, GERD/Reflux, Hypertension, Myocardial Infarction ([place]), Osteoarthritis (OA) Additional Past Medical History / Comment(s): 07-14-15 admitted with stemi,cardiac arrest v-fib. other past med hx includes: KIDNEY STONES, DDD, PAST WORK INJURY 800 POUND I BEAM DROPPED ON PT- BROKEN BACK.BUT PT REFUSED SX, PT STATED THAT PER AN MRI HE HAD THAT NOW THERE ARE 3 TUMORS GROWING IN AREA OF INJURY Last Myocardial Infarction Date:: 2010, 07-14-15 History of Any Multi-Drug Resistant Organisms: None Reported Past Surgical History: Heart Catheterization With Stent Additional Past Surgical History / Comment(s): Two stents in 2010 and re-done 2013. 07-14-15 stent to rca Past Anesthesia/Blood Transfusion Reactions: No Reported Reaction Additional Past Anesthesia/Blood Transfusion Reaction / Comment(s): CLAUSTERPHOBIA Date of Last Stent Placement:: 2013 Past Psychological History: ADD/ADHD, Anxiety, Depression, PTSD Smoking Status: Former smoker Past Alcohol Use History: None Reported Past Drug Use History: None Reported - Past Family History Father Family Medical History: Coronary Artery Disease (CAD), Hyperlipidemia, Myocardial Infarction ([place]) Additional Family Medical History / Comment(s): Had 3 triple bypass surg Mother Family Medical History: Coronary Artery Disease (CAD) Additional Family Medical History / Comment(s): History of stents <Andreas Nunes - Last Filed: 09/10/21 17:57> General Exam Limitations: no limitations General appearance: alert, in no apparent distress Head exam: Present: atraumatic, normocephalic, normal inspection Eye exam: Present: normal appearance, PERRL, EOMI. Absent: scleral icterus, conjunctival injection, periorbital swelling Expanded TM/Canal exam: Erythema: Right TM Mouth exam: Present: tongue normal. Absent: drooling, trismus, muffled voice Teeth exam: Present: dental caries, fractured tooth # (29) Throat exam: normal inspection Neck exam: Present: normal inspection. Absent: tenderness, meningismus, lymphadenopathy Respiratory exam: Present: normal lung sounds bilaterally. Absent: respiratory distress, wheezes, rales, rhonchi, stridor Cardiovascular Exam: Present: regular rate, normal rhythm, normal heart sounds. Absent: systolic murmur, diastolic murmur, rubs, gallop, clicks Neurological exam: Present: alert, oriented X3, CN II-XII intact Psychiatric exam: Present: normal affect, normal mood Skin exam: Present: warm, dry, intact, normal color. Absent: rash <Andreas Nunes - Last Filed: 09/10/21 17:57> Course Vital Signs 09/10/21 16:44 Temperature 97.9 F Pulse Rate 69 Respiratory 16 Rate Blood Pressure 146/85 O2 Sat by Pulse 98 Oximetry Medical Decision Making <Andreas Nunes - Last Filed: 09/10/21 17:57> <Minda Renee - Last Filed: 09/11/21 09:42> - Medical Decision Making Patient is a 46-year-old male presenting with chief complaint of tooth pain. Patient has a known broken tooth that he is following with a dentist for. He recently finished a course of clindamycin 5 days ago. Pain began 2 days ago. Pain is located on the right lower side of face, with radiation down the neck into the ear. On exam there is tenderness with palpation, tooth 29 is not present and the root is exposed. There is tenderness with palpation along the r ight side of the neck and the right tympanic membrane is erythematous. He was given Toradol 30 mg IM and clindamycin for to 50 mg every 8 hours for 7 days. Follow-up with dentist at scheduled appointment on Sunday. Take medication as prescribed. Report back to the ER with any worsening or new onset alarming symptoms. Educated the patient on return parameters and alarm symptoms. Answered all questions. Patient conveyed verbal understanding and agreed to the plan. I discussed this case with my attending Dr. Renee. (Andreas Nunes) I was available for consultation in the emergency department. The history and physical exam were done by the midlevel provider. I was consulted for this patients care. I reviewed the case with the midlevel provider and based on t heir presentation of the patient, I agree with the assessment, medical decision making and plan of care as documented. Chart was dictated using [employer] dictation software. Attempts were made to corre ct any dictation errors however some typographical errors may persist. Patient was seen during a national state of emergency due to the Covid-19 pandemic. (Minda Renee) Disposition Is patient prescribed a controlled substance at d/c from ED?: No Time of Disposition: 17:34 <Andreas Nunes - Last Filed: 09/10/21 17:57> <Minda Renee - Last Filed: 09/11/21 09:42> Clinical Impression: Dental abscess Disposition: HOME SELF-CARE Condition: Good Instructions (If sedation given, give patient instructions): Dental Abscess (ED) Additional Instructions: Take medication as prescribed. May take Motrin and Tylenol for pain relief as needed. Follow-up with dentist in 1-2 days. Return to ER with any worsening or new onset alarm symptoms. Prescriptions: Clindamycin [Cleocin] 450 mg PO Q8H 7 Days #21 cap Referrals: Salvador Junior MD [Primary Care Provider] - 1-2 days
== END 2021-09-10 18:10 | disposition home or self-care (01) ==
LOC: EC 16:37
DX: K04.7 Periapical abscess without sinus (principal); I10 Essential (primary) hypertension; I25.2 Old myocardial infarction; I25.10 Atherosclerotic heart disease of native coronary artery without angina pectoris; K21.9 Gastro-esophageal reflux disease without esophagitis; Z79.1 Long term (current) use of non-steroidal anti-inflammatories (NSAID); Z87.891 Personal history of nicotine dependence; Z79.82 Long term (current) use of aspirin; Z88.0 Allergy status to penicillin
CPT/HCPCS: 99284; 96372; J1885

== ENCOUNTER 2022-01-14 17:40 | Emergency (ER) | payer MEDICARE, OTHER ==
[2022-01-14 17:44] VITALS: TEMP 98
--- NOTE | 2022-01-14 18:07 | ED ---
Chest Pain HPI - General Chief Complaint: Chest Pain Stated Complaint: Chest Pain Time Seen by Provider: 01/14/22 17:45 Source: patient Mode of arrival: ambulatory Limitations: no limitations - History of Present Illness Initial Comments: 46-year-old male with significant past cardiac history presents emergency Department with chest discomfort for the past 3 days. He describes it as a skipping sensation with some shortness of breath. Denies any provocative factors. He is not taking any medications for his symptoms. Denies any crushing chest pain. No fevers, chills or cough. Follows with Dr. Fagan. Patient has no active pain at this time. Because of his history he decided to come into the emergency room for evaluation. Also admits to some reflux sensation. He is on Effient and denies any missed doses. Patient also remarks about some left ear discomfort. Has history of recurrent infections. No other alleviating, precipitating or modifying factors - Related Data Home Medications Medication Instructions Recorded Confirmed Pantoprazole Sodium [Protonix] 40 mg PO BID 09/02/17 07/15/21 Prasugrel [Effient] 10 mg PO DAILY 09/02/17 07/15/21 Aspirin EC [Ecotrin Low Dose] 81 mg PO DAILY 09/04/19 07/15/21 HYDROcodone/APAP 7.5-325MG [[place] 1 tab PO Q4H PRN 09/04/19 07/15/21 7.5-325] ALPRAZolam [Xanax] 0.25 mg PO DAILY PRN 08/06/20 07/15/21 Ergocalciferol [Vitamin D2 (1250 1,250 mcg PO MO 08/06/20 07/15/21 Mcg = 69264 Iu)] lisinopriL 10 mg PO DAILY 08/06/20 07/15/21 Escitalopram [Lexapro] 10 mg PO DAILY 07/15/21 07/15/21 Rosuvastatin [Crestor] 20 mg PO HS 07/15/21 07/15/21 Sucralfate [Carafate] 1 gm PO ACHS PRN 07/15/21 07/15/21 clindamycin HCL [Clindamycin HCl] 300 mg PO QID 07/15/21 07/15/21 Previous Rx's Medication Instructions Recorded Clindamycin [Cleocin] 450 mg PO Q8H 7 Days #21 cap 09/10/21 Cefdinir [Omnicef] 300 mg PO Q12HR #14 capsule 01/14/22 Allergies Allergy/AdvReac Type Severity Reaction Status Date / Time amoxicillin [Amoxicillin] AdvReac thrush Verified 01/14/22 17:44 Penicillins AdvReac Thrush Verified 01/14/22 17:44 Review of Systems ROS Statement: Those systems with pertinent positive or pertinent negative responses have been documented in the HPI. ROS Other: All systems not noted in ROS Statement are negative. EKG Findings - EKG Comments: EKG Findings:: EKG demonstrates sinus rhythm with a rate of 74. HI interval 142. QRS 88. QTC 392. No acute ST segment elevations or depressions Past Medical History Past Medical History: Coronary Artery Disease (CAD), Chest Pain / Angina, Diabetes Mellitus, GERD/Reflux, Hypertension, Myocardial Infarction ([place]), Osteoarthritis (OA) Additional Past Medical History / Comment(s): 07-14-15 admitted with stemi,cardiac arrest v-fib. other past med hx includes: KIDNEY STONES, DDD, PAST WORK INJURY 800 POUND I BEAM DROPPED ON PT- BROKEN BACK.BUT PT REFUSED SX, PT STATED THAT PER AN MRI HE HAD THAT NOW THERE ARE 3 TUMORS GROWING IN AREA OF INJURY Last Myocardial Infarction Date:: 07-14-15 History of Any Multi-Drug Resistant Organisms: None Reported Past Surgical History: Heart Catheterization With Stent Additional Past Surgical History / Comment(s): Two stents in 2010 and re-done 2013. 07-14-15 stent to rca Past Anesthesia/Blood Transfusion Reactions: No Reported Reaction Additional Past Anesthesia/Blood Transfusion Reaction / Comment(s): CLAUSTERPHOBIA Date of Last Stent Placement:: 2013 Past Psychological History: ADD/ADHD, Anxiety, Depression, PTSD Smoking Status: Former smoker Past Alcohol Use History: None Reported Past Drug Use History: None Reported - Past Family History Father Family Medical History: Coronary Artery Disease (CAD), Hyperlipidemia, Myocardial Infarction ([place]) Additional Family Medical History / Comment(s): Had 3 triple bypass surg Mother Family Medical History: Coronary Artery Disease (CAD) Additional Family Medical History / Comment(s): History of stents General Exam Limitations: no limitations General appearance: alert, in no apparent distress Head exam: Present: atraumatic, normocephalic, normal inspection Eye exam: Present: normal appearance, PERRL, EOMI. Absent: scleral icterus, conjunctival injection, periorbital swelling ENT exam: Present: normal exam, mucous membranes moist Neck exam: Present: normal inspection. Absent: tenderness, meningismus, lymphadenopathy Respiratory exam: Present: normal lung sounds bilaterally. Absent: respiratory distress, wheezes, rales, rhonchi, stridor Cardiovascular Exam: Present: regular rate, normal rhythm, normal heart sounds. Absent: systolic murmur, diastolic murmur, rubs, gallop, clicks GI/Abdominal exam: Present: soft, normal bowel sounds. Absent: distended, tenderness, guarding, rebound, rigid Extremities exam: Present: normal inspection, full ROM, normal capillary refill. Absent: tenderness, pedal edema, joint swelling, calf tenderness Back exam: Present: normal inspection Neurological exam: Present: alert, oriented X3, CN II-XII intact Psychiatric exam: Present: normal affect, normal mood Skin exam: Present: warm, dry, intact, normal color. Absent: rash Course Vital Signs 01/14/22 01/14/22 17:42 18:14 Temperature 98 F Pulse Rate 76 69 Respiratory 20 18 Rate Blood Pressure 145/82 124/87 O2 Sat by Pulse 97 Oximetry Chest Pain MDM - MDM Upon arrival patient was placed into room 17. Thorough history and physical exam was performed. He is placed on continuous pulse ox and cardiac monitoring. 12-lead EKG is obtained and compared to his previous EKG in June which demonstrates no changes. Laboratory studies are conducted and reviewed. Chest x-rays performed. Troponin is negative. I did offer admission however patient refused and wants to go home. He was given a dose of antibiotics for his left ear infection. He is to call the cardiology office and schedule an appointment. Return for any new or worsening symptoms. Patient agreed with the plan and was discharged home in stable condition Disposition Clinical Impression: Atypical chest pain, Left ear pain Disposition: HOME SELF-CARE Condition: Stable Instructions (If sedation given, give patient instructions): Chest Pain (ED), Ear Infection (ED) Additional Instructions: Please take the antibiotics as directed and follow-up with your doctor. Return for any new or worsening symptoms Prescriptions: Cefdinir [Omnicef] 300 mg PO Q12HR #14 capsule Is patient prescribed a controlled substance at d/c from ED?: No Referrals: Salvador Junior MD [Primary Care Provider] - 1-2 days Emeterio Reynolds DO [Doctor of Osteopathic Medicine] - 1-2 days Karri Fagan MD [STAFF PHYSICIAN] - 1-2 days Time of Disposition: 21:05
[2022-01-14 18:23] LABS: Basophils % (A) 0 %; Eosinophils # (A) 0.1 k/uL (0-0.7); Eosinophils % (A) 1 %; HCT 42.2 % (39.0-53.0); HGB 13.5 gm/dL (13.0-17.5); Lymphocytes # (A) 2.1 k/uL (1.0-4.8); Lymphocytes % (A) 21 %; MCH 27.3 pg (25.0-35.0); MCV 85.3 fL (80.0-100.0); Monocytes # (A) 0.5 k/uL (0-1.0); Monocytes % (A) 5 %; Neutrophils # (A) 7.1 k/uL (1.3-7.7); Neutrophils % (A) 72 %; Platelet Count 309 k/uL (150-450); RBC 4.94 m/uL (4.30-5.90); RDW 12.9 % (11.5-15.5)
[2022-01-14 18:31] VITALS: BP 124/87; PULSE 69; RESP 18
--- NOTE | 2022-01-14 18:32 | XR ---
EXAMINATION TYPE: XR chest 2V DATE OF EXAM: 01/14/2022 COMPARISON: 07/15/2021 HISTORY: Chest pain TECHNIQUE: 2 view FINDINGS: Heart and mediastinum are normal. Lungs are clear. Diaphragm is normal. There are chest jessica ds. Bony thorax is intact. IMPRESSION: Normal chest. No change.
[2022-01-14 18:35] LABS: Partial Thromboplastin Time 25.6 sec (22.0-30.0); Prothrombin Time 10.4 sec (9.0-12.0)
[2022-01-14 18:36] LABS: ALT 45 U/L (4-49); AST 47 U/L (17-59); African American GFR (CKD) >90 (>60 ml/min/1.73 sqM); Albumin 4.6 g/dL (3.5-5.0); Alkaline Phosphatase 83 U/L (38-126); Anion Gap 8 mmol/L; Blood Urea Nitrogen 11 mg/dL (9-20); Calcium 9.5 mg/dL (8.4-10.2); Carbon Dioxide 27 mmol/L (22-30); Chloride 101 mmol/L (98-107); Glucose 137 mg/dL (74-99); Lipase 53 U/L (23-300); Magnesium 1.7 mg/dL (1.6-2.3); Non-African American GFR(CKD) >90 (>60 ml/min/1.73 sqM); Potassium 4.4 mmol/L (3.5-5.1); Sodium 136 mmol/L (137-145); Total Protein 7.4 g/dL (6.3-8.2)
[2022-01-14] MEDS ORDERED: LORazepam 2 MG/ML INJ IV STA (19:42)
[2022-01-14] MEDS ORDERED: MAG HYDROX/AL HYDROX/SIMETH 30 ML, HYOSCYAMINE ELIXIR 10 ML, LIDOCAINE VISCOUS 2% 10 ML PO STA ×3 (19:42)
[2022-01-14] MEDS ORDERED: CEFDINIR 300 MG CAP PO STA (21:00)
== END 2022-01-14 21:33 | disposition home or self-care (01) ==
LOC: EC 17:40
DX: R07.89 Other chest pain (principal); H92.02 Otalgia, left ear; R06.02 Shortness of breath; E11.9 Type 2 diabetes mellitus without complications; K21.9 Gastro-esophageal reflux disease without esophagitis; I10 Essential (primary) hypertension; I25.2 Old myocardial infarction; Z87.891 Personal history of nicotine dependence; I25.10 Atherosclerotic heart disease of native coronary artery without angina pectoris; M19.90 Unspecified osteoarthritis, unspecified site; Z88.1 Allergy status to other antibiotic agents; Z88.0 Allergy status to penicillin; Z79.899 Other long term (current) drug therapy; Z79.82 Long term (current) use of aspirin; Z79.84 Long term (current) use of oral hypoglycemic drugs
CPT/HCPCS: 36415; 93005; 83880; 80053; 83690; 83735; 84484; 85025; 85610; 85730; 71046; 99285; 96374; J2060

== ENCOUNTER 2023-11-01 16:47 | Emergency (ER) | payer MEDICARE, OTHER ==
--- NOTE | 2023-11-01 17:05 | ED ---
General Adult HPI - General Chief complaint: Chest Pain Stated complaint: Chest pain Time Seen by Provider: 11/01/23 16:55 Source: patient, EMS, RN notes reviewed, old records reviewed Mode of arrival: EMS Limitations: no limitations - History of Present Illness Initial comments: This is a 48-year-old male who presents to the emergency department the past medical history significant for 5 cardiac stents and 3 heart attacks. Patient states he has high blood pressure. Patient comes in today because he had chest pressure at work it is in the center of his chest. Patient states he has no radiation of the pain. Patient states he does have some shortness of breath and nauseated with the pain. Patient states he also gets quite anxious because of h e had a cardiac arrest in the past so he gets his anxiety gets very high high at this time. Patient also complains of gastric esophageal reflux. Patient denies any recent fever chills or cough. Patient states currently he only has some pressure it is not as bad as it was earlier. Patient has any swelling to the legs or calf tenderness - Related Data Home Medications Medication Instructions Recorded Confirmed Pantoprazole Sodium [Protonix] 40 mg PO BID 09/02/17 11/01/23 Prasugrel [Effient] 10 mg PO DAILY 09/02/17 11/01/23 Aspirin EC [Ecotrin Low Dose] 81 mg PO DAILY 09/04/19 11/01/23 ALPRAZolam [Xanax] 0.25 mg PO TID PRN MDD x 11/01/23 11/01/23 Famotidine [Pepcid] 20 mg PO BID 11/01/23 11/01/23 HYDROcodone/APAP 5-325MG [[place] 1 tab PO QID 11/01/23 11/01/23 5-325] Metoclopramide [Reglan] 5 mg PO AC-TID 11/01/23 11/01/23 Rosuvastatin Calcium [Crestor] 40 mg PO HS 11/01/23 11/01/23 lisinopriL 40 mg PO DAILY 11/01/23 11/01/23 traMADol HCL 50 mg PO TID PRN 11/01/23 11/01/23 Allergies Allergy/AdvReac Type Severity Reaction Status Date / Time amoxicillin [Amoxicillin] AdvReac thrush Verified 11/01/23 18:00 Penicillins AdvReac Thrush Verified 11/01/23 18:00 Review of Systems ROS Statement: Those systems with pertinent positive or pertinent negative responses have been documented in the HPI. ROS Other: All systems not noted in ROS Statement are negative. Past Medical History Past Medical History: Coronary Artery Disease (CAD), Chest Pain / Angina, Diabetes Mellitus, GERD/Reflux, Hypertension, Myocardial Infarction ([place]), Osteoarthritis ([place]) Additional Past Medical History / Comment(s): 07-14-15 admitted with stemi,cardiac arrest v-fib. other past med hx includes: KIDNEY STONES, DDD, PAST WORK INJURY 800 POUND I BEAM DROPPED ON PT- BROKEN BACK.BUT PT REFUSED SX, PT STATED THAT PER AN MRI HE HAD THAT NOW THERE ARE 3 TUMORS GROWING IN AREA OF INJURY Last Myocardial Infarction Date:: 2010, 07-14-15 History of Any Multi-Drug Resistant Organisms: None Reported Past Surgical History: Heart Catheterization With Stent Additional Past Surgical History / Comment(s): Two stents in 2010 and re-done 2013. 07-14-15 stent to rca Past Anesthesia/Blood Transfusion Reactions: No Reported Reaction Additional Past Anesthesia/Blood Transfusion Reaction / Comment(s): CLAUSTERPHOBIA Date of Last Stent Placement:: 2013 Past Psychological History: ADD/ADHD, Anxiety, Depression, PTSD Smoking Status: Former smoker Past Alcohol Use History: None Reported Past Drug Use History: None Reported - Past Family History Father Family Medical History: Coronary Artery Disease (CAD), Hyperlipidemia, Myocardial Infarction ([place]) Additional Family Medical History / Comment(s): Had 3 triple bypass surg Mother Family Medical History: Coronary Artery Disease (CAD) Additional Family Medical History / Comment(s): History of stents General Exam - General Exam Comments Initial Comments: GENERAL: Patient is well-developed and well-nourished. Patient is nontoxic and well- hydrated and is in mild distress. ENT: Neck is soft and supple. No significant lymphadenopathy is noted. Oropharynx is clear. Moist mucous membranes. Neck has full range of motion without eliciting any pain. EYES: The sclera were anicteric and conjunctiva were pink and moist. Extraocular movements were intact and pupils were equal round and reactive to light. Eyelids were unremarkable. PULMONARY: Unlabored respirations. Good breath sounds bilaterally. No audible rales rhonchi or wheezing was noted. CARDIOVASCULAR: There is a regular rate and rhythm without any murmurs gallops or rubs. ABDOMEN: Soft and nontender with normal bowel sounds. No palpable organomegaly was noted. There is no palpable pulsatile mass. SKIN: Skin is clear with no lesions or rashes and otherwise unremarkable. NEUROLOGIC: Patient is alert and oriented x3. Cranial nerves II through XII are grossly intact. Motor and sensory are also intact. Normal speech, volume and content. Symmetrical smile. MUSCULOSKELETAL: Normal extremities with adequate strength and full range of motion. No lower extremity swelling or edema. LYMPHATICS: No significant lymphadenopathy is noted PSYCHIATRIC: Normal psychiatric evaluation. Limitations: no limitations Course Vital Signs 11/01/23 11/01/23 16:50 18:51 Temperature 98.1 F Pulse Rate 63 64 Respiratory 18 16 Rate Blood Pressure 135/94 132/84 O2 Sat by Pulse 97 97 Oximetry Medical Decision Making - Medical Decision Making EKG is interpreted by myself. EKG shows a sinus bradycardia 56 bpm parable 110 QRS 101 QT interval is 425 QTc is 415. Patient's EKG shows no ST segment ovation or depression. Was pt. sent in by a medical professional or institution (, PA, ADVANCED QUALITY ENGINEER, urgent care, hospital, or fci...) When possible be specific @ -No Did you speak to anyone other than the patient for history (EMS, parent, family, police, friend...)? What history was obtained from this source @ -No Did you review nursing and triage notes (agree or disagree)? Why? @ -I reviewed and agree with nursing and triage notes Were old charts reviewed (outside hosp., previous admission, EMS record, old EKG, old radiological studies, urgent care reports/EKG's, fci records)? Report findings @ -I reviewed prior x-rays and EKGs on this patient I saw no acute abnormality with today's results. Differential Diagnosis (chest pain, altered mental status, abdominal pain women, abdominal pain men, vaginal bleeding, weakness, fever, dyspnea, syncope, headache, dizziness, GI bleed, back pain, seizure, CVA, palpatations, mental health, musculoskeletal)? @ -Differential Chest Pain: Stable Angina, Unstable Angina, STEMI, NSTEMI Aortic Dissection, Pneumothorax, Musculoskeletal, Esophageal Spasm GERD, Cholecystitis, Pancreatitis, Zoster, this is not meant to be an all-inclusive list. EKG interpreted by me (3pts min.). @ -As above X-rays interpreted by me (1pt min.). @ -None done CT interpreted by me (1pt min.). @ -None done U/S interpreted by me (1pt. min.). @ -None done What testing was considered but not performed or refused? (CT, X-rays, U/S, labs)? Why? @ -None What meds were considered but not given or refused? Why? @ -None Did you discuss the management of the patient with other professionals (professionals i.e. , PA, ADVANCED QUALITY ENGINEER, lab, RT, psych nurse, director social, dredging inspector, teacher, examining officer, rn case mgr)? Give summary @ -No Was smoking cessation discussed for >3mins.? @ -No Was critical care preformed (if so, how long)? @ -No Were there social determinants of health that impacted care today? How? (Homelessness, low income, unemployed, alcoholism, drug addiction, transportation, low edu. Level, literacy, decrease access to med. care, residential, rehab)? @ -No Was there de-escalation of care discussed even if they declined (Discuss DNR or withdrawal of care, Hospice)? DNR status @ -No What co-morbidities impacted this encounter? (DM, HTN, Smoking, COPD, CAD, Cancer, CVA, ARF, Chemo, Hep., AIDS, mental health diagnosis, sleep apnea, morbid obesity)? @ -None Was patient admitted / discharged? Hospital course, mention meds given and route, prescriptions, significant lab abnormalities, going to OR and other pertinent info. @ -Patient had a GI cocktail stated that made him feel much better. I went back into given his blood work results which were all normal and he stated he did not want to stay I insisted he reconsider he did not I told him it could lead to heart attack and possibly and he stated he wanted to sign out AMA. Undiagnosed new problem with uncertain prognosis? @ -No Drug Therapy requiring intensive monitoring for toxicity (Heparin, Nitro, Insulin, Cardizem)? @ -No Were any procedures done? @ -No Diagnosis/symptom? @ -Unstable angina Acute, or Chronic, or Acute on Chronic? @ -Acute Uncomplicated (without systemic symptoms) or Complicated (systemic symptoms)? @ -Complicated Side effects of treatment? @ -No Exacerbation, Progression, or Severe Exacerbation? @ -No Poses a threat to life or bodily function? How? (Chest pain, [place], [place], pneumonia, PE, COPD, DKA, ARF, appy, cholecystitis, CVA, Diverticulitis, Homicidal, Suicidal, threat to staff... and all critical care pts) @ -Yes this could lead to an [place] and - Lab Data Result diagrams: 11/01/23 17:40 11/01/23 17:40 Lab Results 11/01/23 11/01/23 11/01/23 Range/Units 17:40 17:40 17:40 WBC 10.4 (3.8-10.6) k/uL RBC 4.64 (4.30-5.90) m/uL Hgb 13.2 (13.0-17.5) gm/dL Hct 39.7 (39.0-53.0) % MCV 85.5 (80.0-100.0) fL MCH 28.5 (25.0-35.0) pg MCHC 33.4 (31.0-37.0) g/dL RDW 13.1 (11.5-15.5) % Plt Count 256 (150-450) k/uL MPV 7.5 Neutrophils % 77 % Lymphocytes % 18 % Monocytes % 4 % Eosinophils % 0 % Basophils % 0 % Neutrophils # 7.9 H (1.3-7.7) k/uL Lymphocytes # 1.9 (1.0-4.8) k/uL Monocytes # 0.4 (0-1.0) k/uL Eosinophils # 0.0 (0-0.7) k/uL Basophils # 0.0 (0-0.2) k/uL PT 11.0 (10.0-12.5) sec INR 1.0 (<1.2) APTT 22.6 (22.0-30.0) sec Sodium 139 (137-145) mmol/L Potassium 3.9 (3.5-5.1) mmol/L Chloride 108 H (98-107) mmol/L Carbon Dioxide 26 (22-30) mmol/L Anion Gap 5 mmol/L BUN 10 (9-20) mg/dL Creatinine 0.71 (0.66-1.25) mg/dL Est GFR (CKD-EPI)AfAm >90 (>60 ml/min/1.73 sqM) Est GFR (CKD-EPI)NonAf >90 (>60 ml/min/1.73 sqM) Glucose 93 (74-99) mg/dL Calcium 8.9 (8.4-10.2) mg/dL Magnesium 1.6 (1.6-2.3) mg/dL Total Bilirubin 2.4 H (0.2-1.3) mg/dL AST 23 (17-59) U/L ALT 19 (4-49) U/L Alkaline Phosphatase 79 (38-126) U/L Troponin I (0.000-0.034) ng/mL Total Protein 6.8 (6.3-8.2) g/dL Albumin 4.2 (3.5-5.0) g/dL 11/01/23 Range/Units 17:40 WBC (3.8-10.6) k/uL RBC (4.30-5.90) m/uL Hgb (13.0-17.5) gm/dL Hct (39.0-53.0) % MCV (80.0-100.0) fL MCH (25.0-35.0) pg MCHC (31.0-37.0) g/dL RDW (11.5-15.5) % Plt Count (150-450) k/uL MPV Neutrophils % % Lymphocytes % % Monocytes % % Eosinophils % % Basophils % % Neutrophils # (1.3-7.7) k/uL Lymphocytes # (1.0-4.8) k/uL Monocytes # (0-1.0) k/uL Eosinophils # (0-0.7) k/uL Basophils # (0-0.2) k/uL PT (10.0-12.5) sec INR (<1.2) APTT (22.0-30.0) sec Sodium (137-145) mmol/L Potassium (3.5-5.1) mmol/L Chloride (98-107) mmol/L Carbon Dioxide (22-30) mmol/L Anion Gap mmol/L BUN (9-20) mg/dL Creatinine (0.66-1.25) mg/dL Est GFR (CKD-EPI)AfAm (>60 ml/min/1.73 sqM) Est GFR (CKD-EPI)NonAf (>60 ml/min/1.73 sqM) Glucose (74-99) mg/dL Calcium (8.4-10.2) mg/dL Magnesium (1.6-2.3) mg/dL Total Bilirubin (0.2-1.3) mg/dL AST (17-59) U/L ALT (4-49) U/L Alkaline Phosphatase (38-126) U/L Troponin I <0.012 (0.000-0.034) ng/mL Total Protein (6.3-8.2) g/dL Albumin (3.5-5.0) g/dL Disposition Clinical Impression: Unstable angina Disposition: LEFT AGAINST MEDICAL ADVICE Referrals: Salvador Junior MD [Primary Care Provider] - 1-2 days Time of Disposition: 19:24
[2023-11-01] MEDS: LORazepam 2 MG/ML INJ IV STA (17:43)
[2023-11-01 17:44] VITALS: TEMP 98.1
[2023-11-01] MEDS: ASPIRIN 81 MG PO STA (17:44)
[2023-11-01] MEDS: NITROGLYCERIN OINT 1 INCH/GM PACKET TOPICAL STA (17:44)
[2023-11-01] MEDS: MAG HYDROX/AL HYDROX/SIMETH 30 ML, HYOSCYAMINE ELIXIR 10 ML, LIDOCAINE VISCOUS 2% 10 ML PO STA (17:47)
[2023-11-01 17:58] LABS: Basophils % (A) 0 %; Eosinophils % (A) 0 %; HCT 39.7 % (39.0-53.0); HGB 13.2 gm/dL (13.0-17.5); Lymphocytes # (A) 1.9 k/uL (1.0-4.8); Lymphocytes % (A) 18 %; MCH 28.5 pg (25.0-35.0); MCHC 33.4 g/dL (31.0-37.0); MCV 85.5 fL (80.0-100.0); Mean Platelet Volume 7.5; Monocytes # (A) 0.4 k/uL (0-1.0); Monocytes % (A) 4 %; Neutrophils # (A) 7.9 k/uL (1.3-7.7); Neutrophils % (A) 77 %; Platelet Count 256 k/uL (150-450); RBC 4.64 m/uL (4.30-5.90); RDW 13.1 % (11.5-15.5); WBC 10.4 k/uL (3.8-10.6)
[2023-11-01 18:02] LABS: Partial Thromboplastin Time 22.6 sec (22.0-30.0)
[2023-11-01 18:05] LABS: ALT 19 U/L (4-49); AST 23 U/L (17-59); African American GFR (CKD) >90 (>60 ml/min/1.73 sqM); Albumin 4.2 g/dL (3.5-5.0); Alkaline Phosphatase 79 U/L (38-126); Anion Gap 5 mmol/L; Blood Urea Nitrogen 10 mg/dL (9-20); Calcium 8.9 mg/dL (8.4-10.2); Carbon Dioxide 26 mmol/L (22-30); Chloride 108 mmol/L (98-107); Glucose 93 mg/dL (74-99); Magnesium 1.6 mg/dL (1.6-2.3); Non-African American GFR(CKD) >90 (>60 ml/min/1.73 sqM); Potassium 3.9 mmol/L (3.5-5.1); Sodium 139 mmol/L (137-145); Total Bilirubin 2.4 mg/dL (0.2-1.3); Total Protein 6.8 g/dL (6.3-8.2)
[2023-11-01 19:24] VITALS: BP 132/84; PULSE 64; RESP 16
== END 2023-11-01 19:32 | disposition left against medical advice (07) ==
LOC: EC 16:47
DX: I25.10 Atherosclerotic heart disease of native coronary artery without angina pectoris (principal); Z87.891 Personal history of nicotine dependence; Z88.1 Allergy status to other antibiotic agents; Z53.29 Procedure and treatment not carried out because of patient's decision for other reasons
CPT/HCPCS: 36415; 93005; 80053; 83735; 84484; 85025; 85610; 85730; 99285; 96374; J2060

== ENCOUNTER 2023-12-07 05:12 | Emergency (ER) | payer BC, MEDICARE, OTHER ==
[2023-12-07 05:17] VITALS: TEMP 98
--- NOTE | 2023-12-07 06:17 | ED ---
General Adult HPI - General Chief complaint: Back Pain/Injury Stated complaint: [facility] - ABD pain , Back pain Time Seen by Provider: 12/07/23 06:06 Source: patient, RN notes reviewed Mode of arrival: ambulatory Limitations: no limitations - History of Present Illness Initial comments: 48-year-old male presents emergency department complaint of right-sided a bdominal pain, right hip pain. Patient states it started after he lifted a tote at work states it weighs approximate 30 pounds he states he twisted he felt instant pain. Patient states he has no pain at rest only with movement denies any bowel complaint and cons retention no lower extremity weakness or paresthesias. - Related Data Home Medications Medication Instructions Recorded Confirmed Pantoprazole Sodium [Protonix] 40 mg PO BID 09/02/17 11/01/23 Prasugrel [Effient] 10 mg PO DAILY 09/02/17 11/01/23 Aspirin EC [Ecotrin Low Dose] 81 mg PO DAILY 09/04/19 11/01/23 ALPRAZolam [Xanax] 0.25 mg PO TID PRN MDD x 11/01/23 11/01/23 Famotidine [Pepcid] 20 mg PO BID 11/01/23 11/01/23 HYDROcodone/APAP 5-325MG [[place] 1 tab PO QID 11/01/23 11/01/23 5-325] Metoclopramide [Reglan] 5 mg PO AC-TID 11/01/23 11/01/23 Rosuvastatin Calcium [Crestor] 40 mg PO HS 11/01/23 11/01/23 lisinopriL 40 mg PO DAILY 11/01/23 11/01/23 traMADol HCL 50 mg PO TID PRN 11/01/23 11/01/23 Previous Rx's Medication Instructions Recorded Cyclobenzaprine [Flexeril] 10 mg PO TID PRN #15 tab 12/07/23 Ibuprofen [Motrin] 600 mg PO Q8HR PRN #20 tab 12/07/23 Allergies Allergy/AdvReac Type Severity Reaction Status Date / Time amoxicillin [Amoxicillin] AdvReac thrush Verified 12/07/23 05:17 Penicillins AdvReac Thrush Verified 12/07/23 05:17 Review of Systems ROS Statement: Those systems with pertinent positive or pertinent negative responses have been documented in the HPI. ROS Other: All systems not noted in ROS Statement are negative. Past Medical History Past Medical History: Coronary Artery Disease (CAD), Chest Pain / Angina, Diabetes Mellitus, GERD/Reflux, Hypertension, Myocardial Infarction (NC), Osteoarthritis (OA) Additional Past Medical History / Comment(s): 07-14-15 admitted with stemi,cardiac arrest v-fib. other past med hx includes: KIDNEY STONES, DDD, PAST WORK INJURY 800 POUND I BEAM DROPPED ON PT- BROKEN BACK.BUT PT REFUSED SX, PT STATED THAT PER AN MRI HE HAD THAT NOW THERE ARE 3 TUMORS GROWING IN AREA OF INJURY Last Myocardial Infarction Date:: 2010, 07-14-15 History of Any Multi-Drug Resistant Organisms: None Reported Past Surgical History: Heart Catheterization With Stent Additional Past Surgical History / Comment(s): Two stents in 2010 and re-done 2013. 07-14-15 stent to rca Past Anesthesia/Blood Transfusion Reactions: No Reported Reaction Additional Past Anesthesia/Blood Transfusion Reaction / Comment(s): CLAUSTERPHOBIA Date of Last Stent Placement:: 2013 Past Psychological History: ADD/ADHD, Anxiety, Depression, PTSD Smoking Status: Former smoker Past Alcohol Use History: None Reported Past Drug Use History: None Reported - Past Family History Father Family Medical History: Coronary Artery Disease (CAD), Hyperlipidemia, Myocardial Infarction (NC) Additional Family Medical History / Comment(s): Had 3 triple bypass surg Mother Family Medical History: Coronary Artery Disease (CAD) Additional Family Medical History / Comment(s): History of stents General Exam Limitations: no limitations General appearance: alert, in no apparent distress Head exam: Present: atraumatic, normocephalic, normal inspection Neck exam: Present: normal inspection, full ROM. Absent: tenderness, meningis mus, lymphadenopathy Respiratory exam: Present: normal lung sounds bilaterally. Absent: respiratory distress, wheezes, rales, rhonchi, stridor Cardiovascular Exam: Present: regular rate, normal rhythm, normal heart sounds. Absent: systolic murmur, diastolic murmur, rubs, gallop, clicks GI/Abdominal exam: Present: soft, tenderness (Right-sided abdominal tenderness just superior to the pelvis along the oblique region), normal bowel sounds. Absent: distended, guarding, rebound, rigid Extremities exam: Present: normal inspection, full ROM, normal capillary refill. Absent: tenderness, pedal edema, joint swelling, calf tenderness Back exam: Present: full ROM. Absent: tenderness, paraspinal tenderness, vertebral tenderness Course Vital Signs 12/07/23 05:15 Temperature 98 F Pulse Rate 60 Respiratory 18 Rate Blood Pressure 140/81 O2 Sat by Pulse 98 Oximetry Medical Decision Making - Medical Decision Making Was pt. sent in by a medical professional or institution (, VANNA, LEASES AND LAND SUPERVISOR, urgent care, hospital, or correction...) When possible be specific @ -No Did you speak to anyone other than the patient for history (EMS, parent, family, police, friend...)? What history was obtained from this source @ -No Did you review nursing and triage notes (agree or disagree)? Why? @ -I reviewed and agree with nursing and triage notes Were old charts reviewed (outside hosp., previous admission, EMS record, old EKG, old radiological studies, urgent care reports/EKG's, correction records)? Report findings @ -No old charts were reviewed Differential Diagnosis (chest pain, altered mental status, abdominal pain women, abdominal pain men, vaginal bleeding, weakness, fever, dyspnea, syncope, headache, dizziness, GI bleed, back pain, seizure, CVA, palpatations, mental health, musculoskeletal)? @ -Abdominal wall strain, back strain, zoster, cauda equina syndrome, epidural abscess, vertebral osteomyelitis, discitis, fracture, subluxation, disc herniat ion, DJD, spinal stenosis, dissection, AAA, pancreatitis, peptic ulcer disease, pyelonephritis, kidney stone, this is not meant to be an all-inclusive list. EKG interpreted by me (3pts min.). @ -None X-rays interpreted by me (1pt min.). @ -None done CT interpreted by me (1pt min.). @ -None done U/S interpreted by me (1pt. min.). @ -None done What testing was considered but not performed or refused? (CT, X-rays, U/S, labs)? Why? @ -None What meds were considered but not given or refused? Why? @ -None Did you discuss the management of the patient with other professionals (professionals i.e. VANNA Tristan, LEASES AND LAND SUPERVISOR, lab, RT, psych nurse, secondary social studies teacher, admissions gate attendant, teacher, infantry weapons officer, case fitter)? Give summary @ -No Was smoking cessation discussed for >3mins.? @ -No Was critical care preformed (if so, how long)? @ -No Were there social determinants of health that impacted care today? How? (Homelessness, low income, unemployed, alcoholism, drug addiction, transportation, low edu. Level, literacy, decrease access to med. care, senior care, rehab)? @ -No Was there de-escalation of care discussed even if they declined (Discuss DNR or withdrawal of care, Hospice)? DNR status @ -No What co-morbidities impacted this encounter? (DM, HTN, Smoking, COPD, CAD, Cancer, CVA, ARF, Chemo, Hep., AIDS, mental health diagnosis, sleep apnea, morbid obesity)? @ -None Was patient admitted / discharged? Hospital course, mention meds given and route, prescriptions, significant lab abnormalities, going to OR and other pertinent info. @ -Discharge patient presents emergency room after an injury at work. Patient has right-sided oblique strain. Patient will follow-up with [facility] patient is off work next 2 days for recheck as prescribed anti-inflammatories, muscle relaxers and return parameters were discussed Undiagnosed new problem with uncertain prognosis? @ -No Drug Therapy requiring intensive monitoring for toxicity (Heparin, Nitro, Insulin, Cardizem)? @ -No Were any procedures done? @ -No Diagnosis/symptom? @ -Oblique muscular strain Acute, or Chronic, or Acute on Chronic? @ -Acute Uncomplicated (without systemic symptoms) or Complicated (systemic symptoms)? @ -uncomplicated Side effects of treatment? @ -No Exacerbation, Progression, or Severe Exacerbation? @ -No Poses a threat to life or bodily function? How? (Chest pain, USA, [place], pneumonia, PE, COPD, DKA, ARF, appy, cholecystitis, CVA, Diverticulitis, Homicidal, Suicidal, threat to staff... and all critical care pts) @ -No Disposition Clinical Impression: Strain of abdominal muscle Disposition: HOME SELF-CARE Condition: Stable Instructions (If sedation given, give patient instructions): Muscle Strain (ED) Additional Instructions: Please return to the Emergency Department if symptoms worsen or any other concerns. Prescriptions: Cyclobenzaprine [Flexeril] 10 mg PO TID PRN #15 tab PRN Reason: Muscle Spasm Ibuprofen [Motrin] 600 mg PO Q8HR PRN #20 tab PRN Reason: Pain Is patient prescribed a controlled substance at d/c from ED?: No Referrals: Salvador Junior MD [Primary Care Provider] - 1-2 days Time of Disposition: 06:16
[2023-12-07] MEDS: IBUPROFEN 600 MG TAB PO STA (06:19)
[2023-12-07] MEDS: CYCLOBENZAPRINE 10MG STARTER 3 TAB BTL PO STA (06:20)
[2023-12-07 06:27] VITALS: BP 131/79; PULSE 56; RESP 16
== END 2023-12-07 06:29 | disposition home or self-care (01) ==
LOC: EC 05:12
DX: S39.011A Strain of muscle, fascia and tendon of abdomen, initial encounter (principal); Z88.0 Allergy status to penicillin; Z87.891 Personal history of nicotine dependence; X50.0XXA Overexertion from strenuous movement or load, initial encounter
CPT/HCPCS: 99283

== ENCOUNTER → 2023-12-18 | Outpatient (CLI) | payer OTHER ==
--- NOTE | 2023-12-18 16:20 | XR ---
EXAMINATION TYPE: XR Hip Complete RT DATE OF EXAM: 12/18/2023 4:16 PM CLINICAL INDICATION:Male, 48 years old with history of STRAIN OF MUSCLE, FASCIA AND TENDON OF RIGHT H IP, SUBS; [facility] COMPARISON: None. TECHNIQUE: XR Hip Complete RT; hip was examined in the frontal and lateral projections and a AP pelvi s. FINDINGS: No evidence for acute process, joint dislocation or significant soft tissue swelling. Osteo phyte formation of the superior acetabulum of the hip. There is mild joint space narrowing. IMPRESSION: 1. No evidence for acute process. 2. Mild hip osteoarthrosis.
== END | disposition home or self-care (01) ==
LOC: RADXRMAIN 15:49
PROVIDERS: ATTEND Emergency Medicine
DX: S76.011D Strain of muscle, fascia and tendon of right hip, subsequent encounter (principal); M16.11 Unilateral primary osteoarthritis, right hip
CPT/HCPCS: 73502

== ENCOUNTER 2024-03-18 04:54 | Emergency (ER) | payer BC, MEDICARE, OTHER ==
--- NOTE | 2024-03-18 05:38 | ED ---
General Adult HPI - General Chief complaint: Fall Stated complaint: [facility] - Fall Time Seen by Provider: 03/18/24 05:09 Source: patient Mode of arrival: ambulatory Limitations: no limitations - History of Present Illness Initial comments: Patient a pleasant 48 male past medical history of CAD on Effient presenting today for mechanical trip and fall. Patient was at work where he tripped over a pipe and fell on his left side. Denies head trauma LOC. Denies midline neck pain. No pain with range of motion through his neck. Endorses left shoulder pain that radiated up towards the left side of the neck with movement of the left shoulder, left hip pain, left knee pain. Notes a bruise to the left lateral leg just superior to the knee and bruising to the left lateral leg just inferior to the knee. Is able to ambulate but has pain with ambulation. Endorses tingling the dorsal aspect of the left lower extremity on the top of the hand without pain in the wrist or hand. Is able to range extremities with full range of motion. Denies chest pain or abdominal pain. Denies back pain. Denies additional injury. - Related Data Home Medications Medication Instructions Recorded Confirmed Pantoprazole Sodium [Protonix] 40 mg PO BID 09/02/17 03/18/24 Prasugrel [Effient] 10 mg PO DAILY 09/02/17 03/18/24 Aspirin EC [Ecotrin Low Dose] 81 mg PO DAILY 09/04/19 03/18/24 ALPRAZolam [Xanax] 0.25 mg PO TID PRN 11/01/23 03/18/24 Rosuvastatin Calcium [Crestor] 40 mg PO HS 11/01/23 03/18/24 lisinopriL 40 mg PO DAILY 11/01/23 03/18/24 Desvenlafaxine Succinate [Pristiq 50 mg PO DIRECTED 03/18/24 03/18/24 ER] Diclofenac Sodium [Voltaren] 75 mg PO DIRECTED 03/18/24 03/18/24 HYDROcodone/APAP 7.5-325MG [[place] 1 tab PO QID 03/18/24 03/18/24 7.5-325] Ibuprofen [Motrin] 800 mg PO TID PRN 03/18/24 03/18/24 Allergies Allergy/AdvReac Type Severity Reaction Status Date / Time amoxicillin [Amoxicillin] AdvReac thrush Verified 03/18/24 11:55 Penicillins AdvReac Thrush Verified 03/18/24 11:55 Review of Systems ROS Statement: Those systems with pertinent positive or pertinent negative responses have been documented in the HPI. ROS Other: All systems not noted in ROS Statement are negative. Past Medical History Past Medical History: Coronary Artery Disease (CAD), Chest Pain / Angina, Diabetes Mellitus, GERD/Reflux, Hypertension, Myocardial Infarction ([place]), Osteoarthritis (OA) Additional Past Medical History / Comment(s): 07-14-15 admitted with stemi,cardiac arrest v-fib. other past med hx includes: KIDNEY STONES, DDD, PAST WORK INJURY 800 POUND I BEAM DROPPED ON PT- BROKEN BACK.BUT PT REFUSED SX, PT STATED THAT PER AN MRI HE HAD THAT NOW THERE ARE 3 TUMORS GROWING IN AREA OF INJURY Last Myocardial Infarction Date:: 2010, 07-14-15 History of Any Multi-Drug Resistant Organisms: None Reported Past Surgical History: Heart Catheterization With Stent Additional Past Surgical History / Comment(s): Two stents in 2010 and re-done 2013. 07-14-15 stent to rca Past Anesthesia/Blood Transfusion Reactions: No Reported Reaction Additional Past Anesthesia/Blood Transfusion Reaction / Comment(s): CLAUSTERPHOBIA Date of Last Stent Placement:: 2013 Past Psychological History: ADD/ADHD, Anxiety, Depression, PTSD Smoking Status: Former smoker Past Alcohol Use History: None Reported Past Drug Use History: None Reported - Past Family History Father Family Medical History: Coronary Artery Disease (CAD), Hyperlipidemia, Myocardial Infarction (IA) Additional Family Medical History / Comment(s): Had 3 triple bypass surg Mother Family Medical History: Coronary Artery Disease (CAD) Additional Family Medical History / Comment(s): History of stents General Exam - General Exam Comments Initial Comments: PE: CONSTITUTIONAL: No apparent distress, well appearing SKIN: Warm, dry, no jaundice, hives or petechiae; hematoma proximal left lower extremity, lateral left thigh, superficial bruising lateral distal left lower extremity just inferior to left knee, greenish bruise anterior left hip, small superficial abrasion to left elbow EYES: Pupils are equally round, extraocular movements intact without nystagmus, clear conjunctiva, non-icteric sclera HENT: Normocephalic, atraumatic, moist mucus membranes, oropharynx clear without exudates NECK: , Full range of motion, normal appearance, no midline spinal TTP, patient is able to range his neck through full range of motion without no or sensory deficit PULMONARY: Clear to auscultation without wheezes, rhonchi, or rales, normal excursion, no accessory muscle use and no stridor CARDIOVASCULAR: Regular rate, rhythm, normal S1 and S2. No appreciated murmurs, rubs or gallops. Strong radial pulses with intact distal perfusion. No lower extremity edema GASTROINTESTINAL: Soft, non-tender, non-distended, no palpable masses, no rebound or guarding. No hepatosplenomegaly MUSCULOSKELETAL: Tenderness to palpation posterior left shoulder, no joint swelling or deformity, able to abduct shoulder with some pain, TTP left SCM, able to flex and extend LUE at elbow and wrist without difficulty, no elbow or wrist swelling or deformity; 2+ radial pulse palpated, sensation to light touch intact, TTP anterolateral left hip, lateral left thigh, lateral left knee, able to flex and extend left knee, left hip and left ankle through full ROM, no joint swelling or deformity, 2+ DP pulse palpated, no midline spinal tenderness to palpation, extremities have no gross deformity, no edema, redness, or swelling. NEUROLOGIC:_a/o x 3, GCS 15, normal mentation and speech. Moves all extremities x 4 without motor or sensory deficit PSYCHIATRIC:_normal mood and affect, thought process is clear and linear_ Limitations: no limitations Course Vital Signs 03/18/24 03/18/24 03/18/24 05:01 05:39 06:34 Temperature 97.9 F 98.4 F Pulse Rate 71 66 60 Respiratory 18 19 18 Rate Blood Pressure 126/77 114/75 113/80 O2 Sat by Pulse 98 97 97 Oximetry 03/18/24 07:49 Temperature Pulse Rate 65 Respiratory 16 Rate Blood Pressure 140/70 O2 Sat by Pulse 98 Oximetry Medical Decision Making - Medical Decision Making Was pt. sent in by a medical professional or institution (, PA, ASSISTIVE TECHNOLOGY SPECIALIST, urgent care, hospital, or correction...) When possible be specific @ -No Did you speak to anyone other than the patient for history (EMS, parent, family, police, friend...)? What history was obtained from this source @ -No Did you review nursing and triage notes (agree or disagree)? Why? @ -I reviewed and agree with nursing and triage notes-patient only endorses lower lateral left neck pain, no midline neck pain Were old charts reviewed (outside hosp., previous admission, EMS record, old EKG, old radiological studies, urgent care reports/EKG's, correction records)? Report findings @ -Reviewed charts, x-ray performed on 12/18/2023 showed osteoarthritis without acute fracture Differential Diagnosis (chest pain, altered mental status, abdominal pain women, abdominal pain men, vaginal bleeding, weakness, fever, dyspnea, syncope, headache, dizziness, GI bleed, back pain, seizure, CVA, palpatations, mental health, musculoskeletal)? @Differential Musculoskeletal Muscular strain, contusion, ligament sprain, fracture, arthritis, muscle spasm, nerve compression... This is not meant to be in all inclusive list EKG interpreted by me (3pts min.). @ -As above X-rays interpreted by me (1pt min.). @ -Reviewed plain films, I see no evidence of fracture or dislocation on XR shoulder, femur, tib/fib CT interpreted by me (1pt min.). @ -None done U/S interpreted by me (1pt. min.). @ -None done What testing was considered but not performed or refused? (CT, X-rays, U/S, labs)? Why? @ -None What meds were considered but not given or refused? Why? @ -Considered giving Toradol however patient is on Effient and his history of CAD Did you discuss the management of the patient with other professionals (professionals i.e. , PA, ASSISTIVE TECHNOLOGY SPECIALIST, lab, RT, psych nurse, manager social media, executive assistant, teacher, president and chief commercial officer, director of casework)? Give summary @ -No Was smoking cessation discussed for >3mins.? @ -No Was critical care preformed (if so, how long)? @ -No Were there social determinants of health that impacted care today? How? (Homelessness, low income, unemployed, alcoholism, drug addiction, transportation, low edu. Level, literacy, decrease access to med. care, nursing home, rehab)? @ -No Was there de-escalation of care discussed even if they declined (Discuss DNR or withdrawal of care, Hospice)? @ -No What co-morbidities impacted this encounter? (DM, HTN, Smoking, COPD, CAD, Cancer, CVA, ARF, Chemo, Hep., AIDS, mental health diagnosis, sleep apnea, morbid obesity)? @ -None Was patient admitted / discharged? Hospital course, mention meds given and route, prescriptions, significant lab abnormalities, going to OR and other pertinent info. @ -Hospital course discharged Patient is a pleasant 48-year-old gentleman presenting for mechanical trip and fall with resultant left shoulder left hip and left lower extremity injury. On my assessment patient is well-appearing and in no acute distress. Exam significant for tenderness to palpation of the left posterior shoulder without swelling or deformity, patient is able to abduct his left shoulder with some discomfort however is able to abduct past 90 degrees, no tenderness palpation throughout the remaining of the extremity no elbow or wrist swelling or tenderness, 2+ radial pulse palpated, tenderness to palpation anterolateral left hip small old yellow bruise anterior left hip more medial, small hematoma lateral left thigh and bruising to the lateral distal left lower extremity just inferior to the knee, tenderness palpation of these regions as well (except over old bruise) without any joint swelling or deformity patient able to range his left lower extremity full threat through full range of motion without difficulty. Right sided is atraumatic ,no midline spinal TTP. Very low suspicion for fracture given reassuring exam however will obtain plain films shoulder, hip, femur tib-fib. Ordered home [place] for pain control. Patient is agreeable with plan of care. Reviewed x-rays, I see no evidence of fracture or dislocation. On reassessment patient resting comfortably, pain improved. Discussed negative XRs. Plan for discharge. Patient is agreeable plan. In my medical judgment there is currently no evidence of an immediate life- threatening or surgical condition. Discharge is therefore indicated at this time. Discharge treatment instructions, follow up instructions, and appropriate emergency department return precautions were discussed with the patient and/or medical decision maker. Patient and/or medical decision maker expressed understanding of and agreed with the treatment plan, follow up instructions, and emergency department return precaution. All patient's and/or medical decision maker's questions were answered. Undiagnosed new problem with uncertain prognosis? @ -No Drug Therapy requiring intensive monitoring for toxicity (Heparin, Nitro, Insulin, Cardizem)? @ -No Were any procedures done? @ -No Diagnosis/symptom? @ -Mechanical trip and fall, contusions Acute, or Chronic, or Acute on Chronic? @ -Acute Uncomplicated (without systemic symptoms) or Complicated (systemic symptoms)? @ -Uncomplicated Side effects of treatment? @ -No Exacerbation, Progression, or Severe Exacerbation? @ -No Poses a threat to life or bodily function? How? (Chest pain, [place], [place], pneumonia, PE, COPD, DKA, ARF, appy, cholecystitis, CVA, Diverticulitis, Homicidal, Suicidal, threat to staff... and all critical care pts) @ -No Disposition Clinical Impression: Fall, Contusion Disposition: HOME SELF-CARE Condition: Good Additional Instructions: Every disease is a spectrum and a small chance still exists that a serious condition could develop, for this reason, please monitor yourself closely for new, changing or worsening symptoms, symptoms that persist beyond 48 hours, difficulty walking or moving or arm secondary to pain, pain you cannot control at home medications failure pain to improve in the next 48 hours, inability to tolerate/keep down fluids or your medications, inability to follow up with outpatient providers as instructed and should you experience these symptoms or should you have any further concerns for your wellbeing please return to the ED or call 911 immediately. PLEASE call your primary care physician as soon as possible to arrange / discuss plan for followup appointment. Appointment in the next 1-3 days is strongly encouraged if possible. PLEASE let us know here before you leave if there is anything further we can do to be of any assistance. Take care and feel Better! Is patient prescribed a controlled substance at d/c from ED?: No Referrals: Uma Blunt, JENNIFER [Primary Care Provider] - 1-2 days
[2024-03-18] MEDS: HYDROcodone/APAP 5-325MG 1 EACH TAB PO STA (05:40)
[2024-03-18 06:35] VITALS: TEMP 98.4
--- NOTE | 2024-03-18 07:48 | XR ---
EXAMINATION TYPE: XR shoulder complete LT DATE OF EXAM: 03/18/2024 CLINICAL HISTORY: pain COMPARISON: NONE TECHNIQUE: Three views of the left shoulder are obtained. FINDINGS: There is no acute fracture/dislocation evident. The acromioclavicular and glenohumeral milvia int spaces appear mildly narrowed. The visualized ribs are intact and unremarkable. IMPRESSION: 1. There is no acute fracture or dislocation. ICD 10 NO FRACTURE, INITIAL EVALUATION [facility], , 03/18/2024 7:46 AM
--- NOTE | 2024-03-18 07:49 | XR ---
EXAMINATION TYPE: XR femur LT DATE OF EXAM: 03/18/2024 CLINICAL HISTORY: pain TECHNIQUE: Two views of the left femur are obtained. COMPARISON: None. FINDINGS: There is no acute fracture or dislocation seen of the femur. The hip and knee joints kaylyn ear within normal limits. Ossifications adjacent to the greater trochanter may reflect trochanteric b ursitis. The overlying soft tissue appears unremarkable. IMPRESSION: There is no acute fracture or dislocation seen of the femur. ICD 10 NO FRACTURE, INITIAL EVALUATION [facility], , 03/18/2024 7:47 AM
[2024-03-18 07:50] VITALS: BP 140/70; PULSE 65; RESP 16
--- NOTE | 2024-03-18 07:50 | XR ---
EXAMINATION TYPE: XR tibia fibula LT DATE OF EXAM: 03/18/2024 CLINICAL HISTORY: pain TECHNIQUE: AP and lateral images of the left tibia and fibula are obtained. COMPARISON: None. FINDINGS: There is no acute fracture/dislocation evident. The joint spaces appear within normal parker its. The overlying soft tissue appears unremarkable. IMPRESSION: There is no acute fracture or dislocation seen. ICD 10 NO FRACTURE, INITIAL EVALUATION [facility], , 03/18/2024 7:48 AM
== END 2024-03-18 07:50 | disposition home or self-care (01) ==
LOC: EC 04:54 → SUPCPDRO 04:54 → EC 07:50
CPT/HCPCS: 73502; 99283

== ENCOUNTER 2024-03-18 09:17 | Observation (INO) | payer BC, MEDICARE, OTHER ==
[2024-03-18] MEDS: MECLIZINE 25 MG TAB PO STA (09:37)
[2024-03-18] MEDS: METOCLOPRAMIDE 5 MG/ML 2 ML VIAL IVP STA (09:37)
[2024-03-18] MEDS: ASPIRIN 81 MG PO STA (09:50)
--- NOTE | 2024-03-18 09:50 | ED ---
General Adult HPI - General Chief complaint: Chest Pain Stated complaint: chest pain Time Seen by Provider: 03/18/24 09:20 Source: patient, RN notes reviewed, old records reviewed Mode of arrival: EMS Limitations: no limitations - History of Present Illness Initial comments: This is a 48-year-old male who presents to the emergency department with a past medical history significant for coronary artery disease with stents. Patient states he also had a cardiac arrest in the past. Patient states he was in the emergency department early this morning because he tripped and fell and hurt his ankle and leg. Patient was discharged and on his way home he started having severe chest pain that lasted about 8 to 10 minutes and he states he never had anything this severe before in the past. Patient states he is not sure if he was short of breath because he was just sitting in the car and he thinks he also started having a little bit of a panic attack. Patient states he still has a little chest heaviness now but not as bad as it was. Patient denies any recent fever chills or cough or patient has abdominal pain patient has nausea vomiting diarrhea. Patient denies any headache patient has numbness weakness. - Related Data Home Medications Medication Instructions Recorded Confirmed Pantoprazole Sodium [Protonix] 40 mg PO BID 09/02/17 11/01/23 Prasugrel [Effient] 10 mg PO DAILY 09/02/17 11/01/23 Aspirin EC [Ecotrin Low Dose] 81 mg PO DAILY 09/04/19 11/01/23 ALPRAZolam [Xanax] 0.25 mg PO TID PRN MDD x 11/01/23 11/01/23 Famotidine [Pepcid] 20 mg PO BID 11/01/23 11/01/23 HYDROcodone/APAP 5-325MG [[place] 1 tab PO QID 11/01/23 11/01/23 5-325] Metoclopramide [Reglan] 5 mg PO AC-TID 11/01/23 11/01/23 Rosuvastatin Calcium [Crestor] 40 mg PO HS 11/01/23 11/01/23 lisinopriL 40 mg PO DAILY 11/01/23 11/01/23 traMADol HCL 50 mg PO TID PRN 11/01/23 11/01/23 Previous Rx's Medication Instructions Recorded Cyclobenzaprine [Flexeril] 10 mg PO TID PRN #15 tab 12/07/23 Ibuprofen [Motrin] 600 mg PO Q8HR PRN #20 tab 12/07/23 Allergies Allergy/AdvReac Type Severity Reaction Status Date / Time amoxicillin [Amoxicillin] AdvReac thrush Verified 03/18/24 09:21 Penicillins AdvReac Thrush Verified 03/18/24 09:21 Review of Systems ROS Statement: Those systems with pertinent positive or pertinent negative responses have been documented in the HPI. ROS Other: All systems not noted in ROS Statement are negative. Past Medical History Past Medical History: Coronary Artery Disease (CAD), Chest Pain / Angina, Diabet es Mellitus, GERD/Reflux, Hypertension, Myocardial Infarction ([place]), Osteoarthritis (OA) Additional Past Medical History / Comment(s): 07-14-15 admitted with stemi,cardiac arrest v-fib. other past med hx includes: KIDNEY STONES, DDD, PAST WORK INJURY 800 POUND I BEAM DROPPED ON PT- BROKEN BACK.BUT PT REFUSED SX, PT STATED THAT PER AN MRI HE HAD THAT NOW THERE ARE 3 TUMORS GROWING IN AREA OF INJURY Last Myocardial Infarction Date:: 2010, 07-14-15 History of Any Multi-Drug Resistant Organisms: None Reported Past Surgical History: Heart Catheterization With Stent Additional Past Surgical History / Comment(s): Two stents in 2010 and re-done 2013. 07-14-15 stent to rca Past Anesthesia/Blood Transfusion Reactions: No Reported Reaction Additional Past Anesthesia/Blood Transfusion Reaction / Comment(s): CLAUSTERPHOBIA Date of Last Stent Placement:: 2013 Past Psychological History: ADD/ADHD, Anxiety, Depression, PTSD Smoking Status: Former smoker Past Alcohol Use History: None Reported Past Drug Use History: None Reported - Past Family History Father Family Medical History: Coronary Artery Disease (CAD), Hyperlipidemia, Myocardial Infarction ([place]) Additional Family Medical History / Comment(s): Had 3 triple bypass surg Mother Family Medical History: Coronary Artery Disease (CAD) Additional Family Medical History / Comment(s): History of stents General Exam - General Exam Comments Initial Comments: GENERAL: Patient is well-developed and well-nourished. Patient is nontoxic and well-h ydrated and is in mild distress. ENT: Neck is soft and supple. No significant lymphadenopathy is noted. Oropharynx is clear. Moist mucous membranes. Neck has full range of motion without eliciting any pain. EYES: The sclera were anicteric and conjunctiva were pink and moist. Extraocular move ments were intact and pupils were equal round and reactive to light. Eyelids were unremarkable. PULMONARY: Unlabored respirations. Good breath sounds bilaterally. No audible rales rhonchi or wheezing was noted. CARDIOVASCULAR: There is a regular rate and rhythm without any murmurs gallops or rubs. ABDOMEN: Soft and nontender with normal bowel sounds. SKIN: Skin is clear with no lesions or rashes and otherwise unremarkable. NEUROLOGIC: Patient is alert and oriented x3. Cranial nerves II through XII are grossly intact. Motor and sensory are also intact. Normal speech, volume and content. Symmetrical smile. MUSCULOSKELETAL: Normal extremities with adequate strength and full range of motion. LYMPHATICS: No significant lymphadenopathy is noted PSYCHIATRIC: Normal psychiatric evaluation. Limitations: no limitations Course Vital Signs 03/18/24 09:18 Temperature 97.8 F Pulse Rate 81 Respiratory 18 Rate Blood Pressure 133/82 O2 Sat by Pulse 99 Oximetry Medical Decision Making - Medical Decision Making EKG is interpreted by myself but EKG shows a sinus rhythm at 73 bpm parables 131 QRS 102 QT interval 364 QTc is 389. Patient's EKG shows no ST segment ovation or depression. Was pt. sent in by a medical professional or institution (, PA, GRINDER SET UP OPERATOR JIG, urgent care, hospital, or [facility]...) When possible be specific @ -No Did you speak to anyone other than the patient for history (EMS, parent, family, police, friend...)? What history was obtained from this source @ -No Did you review nursing and triage notes (agree or disagree)? Why? @ -I reviewed and agree with nursing and triage notes Were old charts reviewed (outside hosp., previous admission, EMS record, old EKG, old radiological studies, urgent care reports/EKG's, [facility] records)? Report findings @ -No old charts were reviewed Differential Diagnosis? @ -Differential Chest Pain: Stable Angina, Unstable Angina, STEMI, NSTEMI Aortic Dissection, Pneumothorax, Musculoskeletal, Esophageal Spasm GERD, Cholecystitis, Pancreatitis, Zoster, this is not meant to be an all-inclusive list. EKG interpreted by me (3pts min.). @ -As above X-rays interpreted by me (1pt min.). @ -Chest x-ray shows no acute abnormality CT interpreted by me (1pt min.). @ -None done U/S interpreted by me (1pt. min.). @ -None done What testing was considered but not performed or refused? (CT, X-rays, U/S, labs)? Why? @ -None What meds were considered but not given or refused? Why? @ -None Did you discuss the management of the patient with other professionals (professionals i.e. , PA, GRINDER SET UP OPERATOR JIG, lab, RT, psych nurse, psychiatric social worker, graphic engineer, teacher, transportation officer, senior manager quality assurance)? Give summary @ -I discussed the case with [facility] he agreed to admit the patient I admitted the patient wrote admitting orders Was smoking cessation discussed for >3mins.? @ -No Was critical care preformed (if so, how long)? @ -No Were there social determinants of health that impacted care today? How? (Homelessness, low income, unemployed, alcoholism, drug addiction, transportation, low edu. Level, literacy, decrease access to med. care, fpc, rehab)? @ -No Was there de-escalation of care discussed even if they declined (Discuss DNR or withdrawal of care, Hospice)? DNR status @ -No What co-morbidities impacted this encounter? (DM, HTN, Smoking, COPD, CAD, Cancer, CVA, ARF, Chemo, Hep., AIDS, mental health diagnosis, sleep apnea, morbid obesity)? @ -None Was patient admitted / discharged? Hospital course, mention meds given and route, prescriptions, significant lab abnormalities, going to OR and other pertinent info. @ -Patient had only mild chest pain when he arrived. Patient's lab work was all normal x-ray is normal I spoke with [facility] physicians they agreed to admit the patient admit the patient wrote admitting orders Undiagnosed new problem with uncertain prognosis? @ -No Drug Therapy requiring intensive monitoring for toxicity (Heparin, Nitro, Insulin, Cardizem)? @ -No Were any procedures done? @ -No Diagnosis/symptom? @ -Chest Acute, or Chronic, or Acute on Chronic? @ -Pain acute Uncomplicated (without systemic symptoms) or Complicated (systemic symptoms)? @ -Complicated Side effects of treatment? @ -No Exacerbation, Progression, or Severe Exacerbation? @ -No Poses a threat to life or bodily function? How? (Chest pain, USA, NC, pneumonia, PE, COPD, DKA, ARF, appy, cholecystitis, CVA, Diverticulitis, Homicidal, Suicidal, threat to staff... and all critical care pts) @ -Yes this could lead to an NC and endorgan dysfunction - Lab Data Result diagrams: 03/18/24 09:42 03/18/24 09:42 Lab Results 03/18/24 03/18/24 03/18/24 Range/Units 09:42 09:42 09:42 WBC 9.7 (3.8-10.6) k/uL RBC 4.31 (4.30-5.90) m/uL Hgb 12.4 L (13.0-17.5) gm/dL Hct 37.1 L (39.0-53.0) % MCV 86.0 (80.0-100.0) fL MCH 28.7 (25.0-35.0) pg MCHC 33.4 (31.0-37.0) g/dL RDW 12.8 (11.5-15.5) % Plt Count 270 (150-450) k/uL MPV 6.4 Neutrophils % 66 % Lymphocytes % 28 % Monocytes % 5 % Eosinophils % 1 % Basophils % 0 % Neutrophils # 6.4 (1.3-7.7) k/uL Lymphocytes # 2.7 (1.0-4.8) k/uL Monocytes # 0.5 (0-1.0) k/uL Eosinophils # 0.1 (0-0.7) k/uL Basophils # 0.0 (0-0.2) k/uL PT 10.0 (10.0-12.5) sec INR 0.9 (<1.2) APTT 23.3 (22.0-30.0) sec Sodium 135 L (137-145) mmol/L Potassium 3.6 (3.5-5.1) mmol/L Chloride 104 (98-107) mmol/L Carbon Dioxide 27 (22-30) mmol/L Anion Gap 4 mmol/L BUN 17 (9-20) mg/dL Creatinine 0.79 (0.66-1.25) mg/dL Est GFR (CKD-EPI)AfAm >90 (>60 ml/min/1.73 sqM) Est GFR (CKD-EPI)NonAf >90 (>60 ml/min/1.73 sqM) Glucose 109 H (74-99) mg/dL Calcium 9.0 (8.4-10.2) mg/dL Magnesium 1.6 (1.6-2.3) mg/dL Total Bilirubin 1.0 (0.2-1.3) mg/dL AST 23 (17-59) U/L ALT 20 (4-49) U/L Alkaline Phosphatase 65 (38-126) U/L Troponin I (0.000-0.034) ng/mL Total Protein 6.4 (6.3-8.2) g/dL Albumin 4.0 (3.5-5.0) g/dL 03/18/24 Range/Units 09:42 WBC (3.8-10.6) k/uL RBC (4.30-5.90) m/uL Hgb (13.0-17.5) gm/dL Hct (39.0-53.0) % MCV (80.0-100.0) fL MCH (25.0-35.0) pg MCHC (31.0-37.0) g/dL RDW (11.5-15.5) % Plt Count (150-450) k/uL MPV Neutrophils % % Lymphocytes % % Monocytes % % Eosinophils % % Basophils % % Neutrophils # (1.3-7.7) k/uL Lymphocytes # (1.0-4.8) k/uL Monocytes # (0-1.0) k/uL Eosinophils # (0-0.7) k/uL Basophils # (0-0.2) k/uL PT (10.0-12.5) sec INR (<1.2) APTT (22.0-30.0) sec Sodium (137-145) mmol/L Potassium (3.5-5.1) mmol/L Chloride (98-107) mmol/L Carbon Dioxide (22-30) mmol/L Anion Gap mmol/L BUN (9-20) mg/dL Creatinine (0.66-1.25) mg/dL Est GFR (CKD-EPI)AfAm (>60 ml/min/1.73 sqM) Est GFR (CKD-EPI)NonAf (>60 ml/min/1.73 sqM) Glucose (74-99) mg/dL Calcium (8.4-10.2) mg/dL Magnesium (1.6-2.3) mg/dL Total Bilirubin (0.2-1.3) mg/dL AST (17-59) U/L ALT (4-49) U/L Alkaline Phosphatase (38-126) U/L Troponin I <0.012 (0.000-0.034) ng/mL Total Protein (6.3-8.2) g/dL Albumin (3.5-5.0) g/dL Disposition Clinical Impression: Chest pain Disposition: ADMITTED IP TO THIS HOSP Referrals: Uma Blunt, JENNIFER [REFERRING] - 1-2 days Time of Disposition: 11:39
[2024-03-18 09:54] LABS: Basophils % (A) 0 %; Eosinophils # (A) 0.1 k/uL (0-0.7); Eosinophils % (A) 1 %; HCT 37.1 % (39.0-53.0); HGB 12.4 gm/dL (13.0-17.5); Lymphocytes # (A) 2.7 k/uL (1.0-4.8); Lymphocytes % (A) 28 %; MCH 28.7 pg (25.0-35.0); MCHC 33.4 g/dL (31.0-37.0); Mean Platelet Volume 6.4; Monocytes # (A) 0.5 k/uL (0-1.0); Monocytes % (A) 5 %; Neutrophils # (A) 6.4 k/uL (1.3-7.7); Neutrophils % (A) 66 %; Platelet Count 270 k/uL (150-450); RBC 4.31 m/uL (4.30-5.90); RDW 12.8 % (11.5-15.5); WBC 9.7 k/uL (3.8-10.6)
[2024-03-18 10:06] LABS: INR 0.9 (<1.2); Partial Thromboplastin Time 23.3 sec (22.0-30.0)
[2024-03-18 10:07] LABS: ALT 20 U/L (4-49); AST 23 U/L (17-59); African American GFR (CKD) >90 (>60 ml/min/1.73 sqM); Alkaline Phosphatase 65 U/L (38-126); Anion Gap 4 mmol/L; Blood Urea Nitrogen 17 mg/dL (9-20); Carbon Dioxide 27 mmol/L (22-30); Chloride 104 mmol/L (98-107); Glucose 109 mg/dL (74-99); Magnesium 1.6 mg/dL (1.6-2.3); Non-African American GFR(CKD) >90 (>60 ml/min/1.73 sqM); Potassium 3.6 mmol/L (3.5-5.1); Sodium 135 mmol/L (137-145); Total Protein 6.4 g/dL (6.3-8.2)
--- NOTE | 2024-03-18 10:21 | XR ---
EXAMINATION TYPE: XR chest 2V DATE OF EXAM: 03/18/2024 10:15 AM COMPARISON: Chest radiographs from 01/14/2022 TECHNIQUE: XR chest 2V Frontal and lateral views of the chest. CLINICAL INDICATION:Male, 48 years old with history of Chest Pain; FINDINGS: Lungs/Pleura: There is no evidence of pleural effusion, focal consolidation, or pneumothorax. Pulmonary vascularity: Unremarkable. Heart/mediastinum: Cardiomediastinal silhouette is unremarkable. Musculoskeletal: No acute osseous pathology. IMPRESSION: No acute cardiopulmonary disease/process. [facility], , 03/18/2024 10:19 AM
[2024-03-18] MEDS ORDERED: NITROGLYCERIN SL TABS 0.4 MG TAB SUBLINGUAL PRN (11:44)
[2024-03-18] MEDS: NITROGLYCERIN OINT 1 INCH/GM PACKET TOPICAL SCH (11:52)
[2024-03-18] MEDS ORDERED: ALPRAZolam 0.25 MG TAB PO PRN (12:00)
[2024-03-18] MEDS: DESVENLAFAXINE SUCCINATE 50 MG TAB.ER.24H PO SCH (12:11)
[2024-03-18] MEDS: HYDROcodone/APAP 7.5-325MG 1 EACH TAB PO SCH (12:13)
--- NOTE | 2024-03-18 12:39 | P.HPIM ---
History of Present Illness H&P Date: 03/18/24 History of Presenting Illness: Patient is a very pleasant 48-year-old male with a past medical history of CAD status post stenting, restenosis of stent resulting in STEMI and cardiac arrest, hypertension, hyperlipidemia, GERD, anxiety with depression, and PTSD. He presented to the emergency department with a chief complaint of chest pain. Patient reports he was just in the hospital because he tripped and fell hurting his right leg at work and after being evaluated was discharged home and initially feeling fine but began having severe chest pain to midsternal chest "similar to how I felt when my stent clotted off and I had my cardiac arrest". Patient reports this pain was severe and described as a crushing heaviness that lasted approximately 10 minutes prior to resolving. Patient was unsure if he felt any associated symptoms at the time stating the pain was too severe but currently denies having any headache, lightheadedness, dizziness, palpitations, shortness of breath, cough or congestion, nausea, vomiting, or experiencing any swelling/numbness/tingling/focal weakness in his extremities. Patient reports he follows with lead radiation therapist Dr. Fagan but has not seen him in while. Upon arrival to our facility, patient underwent evaluation in the emergency department. Vital signs upon arrival show blood pressure 133/82, heart rate 81, respiratory rate 18, temp 97.8 F, and SpO2 of 99% on room air. EKG completed showing normal sinus rhythm at 73 bpm with no noted T wave or ST abnormality showing no signs of acute ischemia upon personal review and interpretation. Chest x-ray negative for acute cardiopulmonary process. Labs completed and reviewed. CBC showing stable normocytic anemia with hemoglobin of 12.4. Coagulation profile normal findings. BMP showing sodium 135, potassium 3.6, chloride 104, carbon dioxide 27, anion gap 4, BUN 17, creatinine 0.79, GFR greater than 90. Blood glucose was 109. Magnesium slightly low at 1.6. Liver profile unremarkable. Troponin was negative at less than 0.012. Patient was admitted under our services with consultation to cardiology. Review of systems: Pertinent positives and negatives as discussed in HPI, a complete review of systems was performed and all other systems are negative. Physical exam: Vital signs reviewed and stable. General: Nontoxic, no distress and appears stated age. Derm: Skin warm and dry, normal coloration for ethnicity. Head: Atraumatic, normocephalic and symmetric. Eyes: EOM's intact, no lid lag, and anicteric sclera Mouth: no lip lesions, mucus membranes moist Cardiovascular: regular rate and rhythm with normal S1S2, no murmur, positive posterior tibial pulses bilaterally, and cap refill < 2 seconds. Lungs: Respirations even, regular, and unlabored on room air. Lungs CTA bilaterally, no rhonchi, no rales, no wheezing, and no accessory muscle usage. Abdominal: soft, nontender to palpation, no guarding, no appreciable organomegaly Ext: ROM intact. No gross muscle atrophy, no edema, no contractures Neuro: Speech clear, face symmetrical and CN II-XII grossly intact with no noted focal neuro deficits Psych: Alert and oriented to person, place, time, and situation. Appropriate and pleasant affect. Assessment and Plan of Care: Chest pain, rule out acute coronary event History of CAD status post stenting History of restenosis of stent resulting in a STEMI and cardiac arrest Hypertension Hyperlipidemia -Cardiology consulted, appreciate recommendations -Telemetry monitoring -Trend troponins -Cardiac diet, NPO at midnight -Continue cardiac medication regimen with aspirin 81 mg daily, atorvastatin 80 mg nightly, lisinopril 40 mg daily, and Effient 10 mg daily. -Lipid profile with a.m. labs. -Echocardiogram GERD Continue Protonix 40 mg twice daily. Anxiety and depression PTSD Continue Xanax 0.25 mg 3 times daily as needed for anxiety and Pristiq 50 mg twice daily. Data and imaging reviewed: As stated above in HPI The patient is admitted with an anticipated less than 2 midnight stay for evaluation of chest pain CODE STATUS: Full code DVT prophylaxis: Heparin Anticipated discharge date: Likely 24 to [address]: Home Patient was seen independently by Nurse Practitioner. This document was prepared using [employer] dictation software. Please allow for errors in interior design coordinator while rare they do occur. Abdirahman Miller NP rendered care for this patient independently, reviewed the findin gs and plan as documented in the note above. I did not physically speak with or examine the patient on this date. Past Medical History Past Medical History: Coronary Artery Disease (CAD), Chest Pain / Angina, Diabetes Mellitus, GERD/Reflux, Hypertension, Myocardial Infarction ([place]), Osteoarthritis (OA) Additional Past Medical History / Comment(s): 07-14-15 admitted with stemi,cardiac arrest v-fib. other past med hx includes: KIDNEY STONES, DDD, PAST WORK INJURY 800 POUND I BEAM DROPPED ON PT- BROKEN BACK.BUT PT REFUSED SX, PT STATED THAT PER AN MRI HE HAD THAT NOW THERE ARE 3 TUMORS GROWING IN AREA OF INJURY Last Myocardial Infarction Date:: 2010, 07-14-15 History of Any Multi-Drug Resistant Organisms: None Reported Past Surgical History: Heart Catheterization With Stent Additional Past Surgical History / Comment(s): Two stents in 2010 and re-done 2013. 07-14-15 stent to rca Past Anesthesia/Blood Transfusion Reactions: No Reported Reaction Additional Past Anesthesia/Blood Transfusion Reaction / Comment(s): CLAUSTERPHOBIA Date of Last Stent Placement:: 2013 Past Psychological History: ADD/ADHD, Anxiety, Depression, PTSD Smoking Status: Former smoker Past Alcohol Use History: None Reported Past Drug Use History: None Reported - Past Family History Father Family Medical History: Coronary Artery Disease (CAD), Hyperlipidemia, Myocardial Infarction ([place]) Additional Family Medical History / Comment(s): Had 3 triple bypass surg Mother Family Medical History: Coronary Artery Disease (CAD) Additional Family Medical History / Comment(s): History of stents Medications and Allergies Home Medications Medication Instructions Recorded Confirmed Type Pantoprazole Sodium [Protonix] 40 mg PO BID 09/02/17 03/18/24 History Prasugrel [Effient] 10 mg PO DAILY 09/02/17 03/18/24 History Aspirin EC [Ecotrin Low Dose] 81 mg PO DAILY 09/04/19 03/18/24 History ALPRAZolam [Xanax] 0.25 mg PO TID PRN 11/01/23 03/18/24 History Rosuvastatin Calcium [Crestor] 40 mg PO HS 11/01/23 03/18/24 History lisinopriL 40 mg PO DAILY 11/01/23 03/18/24 History Desvenlafaxine Succinate [Pristiq 50 mg PO DIRECTED 03/18/24 03/18/24 History ER] Diclofenac Sodium [Voltaren] 75 mg PO DIRECTED 03/18/24 03/18/24 History HYDROcodone/APAP 7.5-325MG [[place] 1 tab PO QID 03/18/24 03/18/24 History 7.5-325] Ibuprofen [Motrin] 800 mg PO TID PRN 03/18/24 03/18/24 History Allergies Allergy/AdvReac Type Severity Reaction Status Date / Time amoxicillin [Amoxicillin] AdvReac thrush Verified 03/18/24 11:55 Penicillins AdvReac Thrush Verified 03/18/24 11:55 Physical Exam Vitals: Vital Signs Temp Pulse Resp BP Pulse Ox 03/18/24 11:50 77 18 110/64 96 03/18/24 09:18 97.8 F 81 18 133/82 99 Intake and Output 03/17/24 03/18/24 03/18/24 22:59 06:59 14:59 Other: Weight 91.626 kg Results CBC & Chem 7: 03/18/24 09:42 03/18/24 09:42 Labs: Abnormal Lab Results - Last 24 Hours (Table) 03/18/24 03/18/24 Range/Units 09:42 09:42 Hgb 12.4 L (13.0-17.5) gm/dL Hct 37.1 L (39.0-53.0) % Sodium 135 L (137-145) mmol/L Glucose 109 H (74-99) mg/dL
[2024-03-18] MEDS: PRASUGREL 10 MG TAB PO SCH (18:12)
[2024-03-18] MEDS: ATORVASTATIN 80 MG TAB PO SCH (20:47)
[2024-03-18] MEDS: MAGNESIUM SULFATE-D5W PMX 1 GM in DEXTROSE/WATER 1 100ML.BAG IVPB SCH (20:47)
[2024-03-18] MEDS: PANTOPRAZOLE 40 MG TABLET PO SCH (20:47)
[2024-03-18] MEDS: HEPARIN SODIUM,PORCINE 5,000 UNIT/ML 1 ML VIAL SQ SCH (23:07)
[2024-03-19 07:26] VITALS: BP 119/75; PULSE 95; RESP 18; TEMP 97.8
[2024-03-19] MEDS: ASPIRIN 81 MG PO SCH (08:37)
[2024-03-19] MEDS: lisinopriL 20 MG TAB PO SCH (08:37)
[2024-03-19 08:51] LABS: HCT 38.5 % (39.6-50.0); HGB 12.5 g/dL (13.0-17.0); MCHC 32.5 g/dL (32.0-37.0); MCV 86.3 FL (80.0-97.0); Mean Platelet Volume 9.1 FL (9.5-12.2); NRBC Per 100 WBC 0 X 10*3/uL (0.00-0.01); Platelet Count 242 X 10*3/uL (140-440); RBC 4.46 X 10*6/uL (4.40-5.60); RDW 12.8 % (11.5-14.5); WBC 8.85 X 10*3/uL (4.50-10.00)
[2024-03-19 08:59] LABS: ALT 16 U/L (10-49); AST 19 U/L (14-35); Albumin 4.1 g/dL (3.8-4.9); Albumin/Globulin Ratio 2.05 Ratio (1.60-3.17); Alkaline Phosphatase 72 U/L (41-126); BUN/Creat Ratio 21.43 Ratio (12.00-20.00); Calcium 8.8 mg/dL (8.7-10.3); Chloride 102 mmol/L (96-109); Chol/HDL Ratio 3.92 Ratio; Glucose 90 mg/dL (70-110); LDL Cholesterol,Calculated 100.6 mg/dL (0.0-131.0); Magnesium 2.1 mg/dL (1.5-2.4); Potassium 4.5 mmol/L (3.5-5.5); Sodium 137 mmol/L (135-145); Total Bilirubin 0.9 mg/dL (0.3-1.2); Total Protein 6.1 g/dL (6.2-8.2)
[2024-03-19] MEDS ORDERED: ASPIRIN 325 MG TAB PO SCH (09:00)
[2024-03-19] MEDS ORDERED: PRASUGREL 10 MG TAB PO SCH (09:00)
--- NOTE | 2024-03-19 09:44 | P.DS ---
Providers Date of admission: 03/18/24 11:46 Expected date of discharge: 03/19/24 Attending physician: Pipe Newsome Consults: 03/18/24 11:44 Consult Physician Urgent Consulting Provider: [facility] Consult Reason/Comments: Chest pain Do you want consulting provider notified?: Yes Primary care physician: Physician Nonstaff Hospital Course: Discharge Diagnosis: Chest pain, acute coronary event ruled out History of CAD status post stenting History of restenosis of stent resulting in a STEMI and cardiac arrest Hypertension Hyperlipidemia GERD Anxiety and depression PTSD Hospital Course: Patient is a very pleasant 48-year-old male with a past medical history of CAD status post stenting, restenosis of stent resulting in STEMI and cardiac arrest, hypertension, hyperlipidemia, GERD, anxiety with depression, and PTSD. He presented to the emergency department with a chief complaint of chest pain. Patient reports he was just in the hospital because he tripped and fell hurting his right leg at work and after being evaluated was discharged home and initially feeling fine but began having severe chest pain to midsternal chest "similar to how I felt when my stent clotted off and I had my cardiac arrest". Patient reports this pain was severe and described as a crushing heaviness that lasted approximately 10 minutes prior to resolving. Patient was unsure if he felt any associated symptoms at the time stating the pain was too severe but currently denies having any headache, lightheadedness, dizziness, palpitations, shortness of breath, cough or congestion, nausea, vomiting, or experiencing any swelling/numbness/tingling/focal weakness in his extremities. Patient reports he follows with optician apprentice Dr. Fagan but has not seen him in while. Upon arrival to our facility, patient underwent evaluation in the emergency department. Vital signs upon arrival show blood pressure 133/82, heart rate 81, respiratory rate 18, temp 97.8 F, and SpO2 of 99% on room air. EKG completed showing normal sinus rhythm at 73 bpm with no noted T wave or ST abnormality showing no signs of acute ischemia upon personal review and interpretation. Chest x-ray negative for acute cardiopulmonary process. Labs completed and reviewed. CBC showing stable normocytic anemia with hemoglobin of 12.4. Coagulation profile normal findings. BMP showing sodium 135, potassium 3.6, chloride 104, carbon dioxide 27, anion gap 4, BUN 17, creatinine 0.79, GFR greater than 90. Blood glucose was 109. Magnesium slightly low at 1.6. Liver profile unremarkable. Troponin was negative at less than 0.012. Patient was admitted under our services with consultation to cardiology. D-dimer was obtained and negative at 0.21. Troponins were trended all negative at less than 0.012 x 3 draws. Echocardiogram completed revealing a preserved EF of 55 to 60% with no significant valvular or structural abnormalities reported. Cardiology evaluated and clearing patient from cardiac perspective recommending starting patient on Zetia 10 mg daily and decreasing lisinopril to 20 mg daily. Patient remained free from any further episodes of chest pain since admission and is medically stable for discharge at this time. Patient to follow-up outpatient with PCP in 1 to 2 days and with optician apprentice in 2 weeks. Physical exam: Vital signs reviewed and stable. General: Nontoxic, no distress and appears stated age. Derm: Skin warm and dry, normal coloration for ethnicity. Head: Atraumatic, normocephalic and symmetric. Eyes: EOM's intact, no lid lag, and anicteric sclera Mouth: no lip lesions, mucus membranes moist Cardiovascular: regular rate and rhythm with normal S1S2, no murmur, positive posterior tibial pulses bilaterally, and cap refill < 2 seconds. Lungs: Respirations even, regular, and unlabored on room air. Lungs CTA bilaterally, no rhonchi, no rales, no wheezing, and no accessory muscle usage. Abdominal: soft, nontender to palpation, no guarding, no appreciable organomegaly Ext: ROM intact. No gross muscle atrophy, no edema, no contractures Neuro: Speech clear, face symmetrical and CN II-XII grossly intact with no noted focal neuro deficits Psych: Alert and oriented to person, place, time, and situation. Appropriate and pleasant affect. A total of 35 minutes of time were spent preparing this complex discharge summary. Pt was discharged on 02/18/2024 at 9:43 AM. Patient was seen independently by Nurse Practitioner. This document was prepared using [employer] dictation software. Please allow for errors in tension worker while rare they do occur. Abdirahman Miller NP rendered care for this patient independently, reviewed the findings and plan as documented in the note above. I did not physically speak with or examine the patient on this date. Patient Condition at Discharge: Stable Plan - Discharge Summary New Discharge Prescriptions: New Ezetimibe [Zetia] 10 mg PO DAILY 30 Days #30 tab lisinopriL [Zestril] 20 mg PO DAILY 30 Days #30 tab Continue Prasugrel [Effient] 10 mg PO DAILY Pantoprazole Sodium [Protonix] 40 mg PO BID Aspirin EC [Ecotrin Low Dose] 81 mg PO DAILY ALPRAZolam [Xanax] 0.25 mg PO TID PRN PRN Reason: Anxiety Rosuvastatin Calcium [Crestor] 40 mg PO HS Ibuprofen [Motrin] 800 mg PO TID PRN PRN Reason: Pain Diclofenac Sodium [Voltaren] 75 mg PO DIRECTED Desvenlafaxine Succinate [Pristiq ER] 50 mg PO DIRECTED HYDROcodone/APAP 7.5-325MG [[place] 7.5-325] 1 tab PO QID Discontinued lisinopriL 40 mg PO DAILY Discharge Medication List Pantoprazole Sodium [Protonix] 40 mg PO BID 09/02/17 [History] Prasugrel [Effient] 10 mg PO DAILY 09/02/17 [History] Aspirin EC [Ecotrin Low Dose] 81 mg PO DAILY 09/04/19 [History] ALPRAZolam [Xanax] 0.25 mg PO TID PRN 11/01/23 [History] Rosuvastatin Calcium [Crestor] 40 mg PO HS 11/01/23 [History] Desvenlafaxine Succinate [Pristiq ER] 50 mg PO DIRECTED 03/18/24 [History] Diclofenac Sodium [Voltaren] 75 mg PO DIRECTED 03/18/24 [History] HYDROcodone/APAP 7.5-325MG [[place] 7.5-325] 1 tab PO QID 03/18/24 [History] Ibuprofen [Motrin] 800 mg PO TID PRN 03/18/24 [History] Ezetimibe [Zetia] 10 mg PO DAILY 30 Days #30 tab 03/19/24 [Rx] lisinopriL [Zestril] 20 mg PO DAILY 30 Days #30 tab 03/19/24 [Rx] Follow up Appointment(s)/Referral(s): Uma Blunt NPC [REFERRING] - 1-2 days Karri Fagan MD [STAFF PHYSICIAN] - 04/07/24 4:00 pm (Appointment will be at the [facility] [place] ) Patient Instructions/Handouts: Chest Pain (DC) Activity/Diet/Wound Care/Special Instructions: Activity: As tolerated. Take breaks as needed. Diet: Heart healthy and carb consistent diet. Avoid salts, or foods with hidden salts such as canned or boxed foods and frozen dinners. Extra salt makes your heart work harder and traps the fluid in your body for longer. Special Instructions: Take all of your medications as directed and remember to keep all of your doctor's appointments and follow-up as needed. Thank you for allowing us to participate in your care, it was truly a pleasure having you for our patient!!! Discharge Disposition: HOME SELF-CARE
--- NOTE | 2024-03-19 11:01 | CA ---
Transthoracic Echo Report Name: Chaitanya Acosta Age: 48 Gender: M : 1975 Exam Date: 03/19/2024 08:51 Exam Location: [facility] Ht (in): 70 Wt (lb): 202 Ordering Physician: Abdirahman Miller Attending/Referring Phys: Quiller Runner Julieth Orona RDCS Procedure CPT: Indications: Cardiac arrest, cause unspecified Cardiac Hx: Technical Quality: Fair Contrast 1: Total Dose (mL): Contrast 2: Total Dose (mL): MEASUREMENTS (Male / Female) Normal Values 2D ECHO LV Diastolic Diameter PLAX 4.9 cm 4.2 - 5.9 / 3.9 - 5.3 cm LV Systolic Diameter PLAX 3.2 cm IVS Diastolic Thickness 1.2 cm 0.6 - 1.0 / 0.6 - 0.9 cm LVPW Diastolic Thickness 1.0 cm 0.6 - 1.0 / 0.6 - 0.9 cm LV Relative Wall Thickness 0.4 LVOT Diameter 2.2 cm LV Diastolic Volume MOD BP 146.7 cm??? 67 - 155 / 56 - 104 cm??? LV Systolic Volume MOD BP 60.6 cm??? 22 - 58 / 19 - 49 cm??? LV Ejection Fraction MOD BP 58.7 % >= 55 % LV Cardiac Index MOD BP 2605.6 cm???/min???m??? LV Diastolic Volume MOD 4C 151.4 cm??? LV Systolic Volume MOD 4C 64.2 cm??? LV Ejection Fraction MOD 4C 57.6 % LV Cardiac Index MOD 4C 2638.9 cm???/min???m??? LV Diastolic Length 4C 9.6 cm LV Systolic Length 4C 7.2 cm LV Diastolic Volume MOD 2C 135.9 cm??? LV Systolic Volume MOD 2C 54.7 cm??? LV Ejection Fraction MOD 2C 59.8 % LV Cardiac Index MOD 2C 2458.3 cm???/min???m??? LV Diastolic Length 2C 9.2 cm LV Systolic Length 2C 7.5 cm LA Volume 55.8 cm??? 18 - 58 / 22 - 52 cm??? LA Volume Index 26.0 cm???/m??? 16 - 28 cm???/m??? Ascending Aorta Diameter 3.0 cm DOPPLER AV Peak Velocity 141.4 cm/s AV Peak Gradient 8.0 mmHg AV Mean Velocity 91.7 cm/s AV Mean Gradient 4.0 mmHg AV Velocity Time Integral 27.9 cm LVOT Peak Velocity 102.9 cm/s LVOT Peak Gradient 4.2 mmHg LVOT Velocity Time Integral 20.9 cm LVOT Stroke Volume 80.8 cm??? LVOT Stroke Volume Index 38.5 ml/m??? LVOT Cardiac Index 2443.7 cm???/min???m??? AV Area Cont Eq vti 2.9 cm??? AV Area Cont Eq pk 2.8 cm??? MV Area PHT 4.1 cm??? Mitral E Point Velocity 65.6 cm/s Mitral A Point Velocity 48.9 cm/s Mitral E to A Ratio 1.3 MV Deceleration Time 187.0 ms TR Peak Velocity 205.2 cm/s TR Peak Gradient 16.8 mmHg Right Atrial Pressure 5.0 mmHg Pulmonary Artery Systolic Pressu 21.8 mmHg Right Ventricular Systolic Press 21.8 mmHg PV Peak Velocity 109.4 cm/s PV Peak Gradient 4.8 mmHg FINDINGS Left Ventricle Left ventricular ejection fraction is estimated at 55-60 %. Mildly increased septal wall thickness. Mildly increased left ventricular systolic volume. No obvious regional wall motion abnormalities. Right Ventricle Normal right ventricular size and function. Right ventricular systolic pressure within normal limits. Right Atrium Normal right atrial size. Left Atrium Normal left atrial size. Mitral Valve Structurally normal mitral valve. No evidence for mitral valve prolapse. No mitral stenosis. Mild mitral regurgitation. Aortic Valve Trileaflet aortic valve. No aortic valve stenosis or regurgitation. Tricuspid Valve Structurally normal tricuspid valve. No tricuspid stenosis. Mild tricuspid regurgitation. Pulmonic Valve Pulmonic valve not well visualized. No pulmonic stenosis. Trace pulmonic regurgitation. Pericardium No pericardial effusion. Aorta Normal size aortic root and proximal ascending aorta. CONCLUSIONS Left ventricular ejection fraction is estimated at 55-60 %. No obvious regional wall motion abnormalities. Normal RV size and systolic function No significant valve dysfunction No pericardial effusion No prior echo to compare with in database Previewed by: Dr Neel Kraus (Electronically Signed) Final Date: 19 March 2024 11:00
[2024-03-19] MEDS: EZETIMIBE 10 MG TAB PO SCH (11:13)
--- NOTE | 2024-03-19 16:01 | P.CRDCN ---
History of Present Illness Consult date: 03/19/24 Consult reason: chest pain History of present illness: Dr. Kraus addendum Patient has prior history of RCA PCI along with very late in-stent stenosis and therefore he is on dual antiplatelet therapy. I will continue his aspirin and Effient. On 40 of Crestor his LDL is suboptimally controlled at 100. For this I will add Zetia 10 mg. Patient is agreeable. I am not able to add beta- edgard because of low resting heart rate around 50. He is on lisinopril 20 mg blood pressure is optimally controlled. For his symptoms of substernal chest pr essure and because of his prior history about recommend obtaining an outpatient treadmill nuclear stress test. Will set this up in clinic. He is not having any acute coronary syndrome presentation at this time with negative ECG and troponins and present resolution of chest pain symptoms This is a 48-year-old male patient of Dr. 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 We have been asked to evaluate the patient for chest pain. Patient states that he developed some chest pain felt that his heart was racing and started to panic. He called 911 but he was near the [place] and he was not getting good service which caused him to be more panicked. He denies having any chest pain at this time. EKG: Sinus bradycardia Chest x-ray: No acute process Echocardiogram reveals EF of 55 to 60%. Laboratory studies: WBC 8.8, hemoglobin 12.5. D-dimer 0.21. Creatinine 0.7. Troponins negative x 3. Triglycerides 171, cholesterol 181, LDL 100, HDL 46. Home cardiac medications: Aspirin 81 mg daily, Effient 10 mg daily, Crestor 40 mg at bedtime Review Of Systems: At the time of my exam: CONSTITUTIONAL: Denies fever or chills. HEENT: Denies blurred vision, vision changes, or eye pain. Denies hemoptysis CARDIOVASCULAR: Denies chest pain. Denies orthopnea. Denies PND. Denies palpitations RESPIRATORY: Denies shortness of breath. GASTROINTESTINAL: Denies abdominal pain. Denies nausea or vomiting. HEMATOLOGIC: Denies bleeding disorders. GENITOURINARY: Denies any blood in urine. SKIN: Denies puritis. Denies rash. Physical examination: Gen: This is a 48-year-old male appears to be in no acute distress VS: reviewed HEENT: Head is atraumatic, normocephalic. Pupils equal, round. Sclerae is anicteric. NECK: Supple. No JVD. LUNGS: Clear to auscultation. No wheezes or rhonchi. No intercostal retractions. HEART: Regular rate and rhythm. Soft systolic murmur. ABDOMEN: Soft No tenderness. EXTREMITIES: No pedal edema. No calf tenderness. NEUROLOGICAL: Patient is awake, alert and oriented x3. Assessment: Atypical chest pain, acute coronary syndrome ruled out History of coronary artery disease Hypertension Hyperlipidemia Tobacco use Plan: Resume patient's home cardiac medications Add Zetia Patient is cleared from cardiology for discharge home and may follow-up in the office in 2 weeks. Thank you kindly for this consultation. Nurse practitioner note has been reviewed, I agree with documented findings and plan of care. Patient was seen and examined. Past Medical History Past Medical History: Coronary Artery Disease (CAD), Chest Pain / Angina, Diabe duane Mellitus, GERD/Reflux, Hypertension, Myocardial Infarction (MO), Osteoarthritis (OA) Additional Past Medical History / Comment(s): 07-14-15 admitted with stemi,cardiac arrest v-fib. other past med hx includes: KIDNEY STONES, DDD, PAST WORK INJURY 800 POUND I BEAM DROPPED ON PT- BROKEN BACK.BUT PT REFUSED SX, PT STATED THAT PER AN MRI HE HAD THAT NOW THERE ARE 3 TUMORS GROWING IN AREA OF INJURY Last Myocardial Infarction Date:: 07-14-15 History of Any Multi-Drug Resistant Organisms: None Reported Past Surgical History: Heart Catheterization With Stent Additional Past Surgical History / Comment(s): Two stents in 2010 and re-done 2013. 07-14-15 stent to rca Past Anesthesia/Blood Transfusion Reactions: No Reported Reaction Additional Past Anesthesia/Blood Transfusion Reaction / Comment(s): CLAUSTERPHOBIA Date of Last Stent Placement:: 2013 Past Psychological History: ADD/ADHD, Anxiety, Depression, PTSD Smoking Status: Former smoker Past Alcohol Use History: None Reported Past Drug Use History: None Reported - Past Family History Father Family Medical History: Coronary Artery Disease (CAD), Hyperlipidemia, Myocardial Infarction (MO) Additional Family Medical History / Comment(s): Had 3 triple bypass surg Mother Family Medical History: Coronary Artery Disease (CAD) Additional Family Medical History / Comment(s): History of stents Medications and Allergies Home Medications Medication Instructions Recorded Confirmed Type Pantoprazole Sodium [Protonix] 40 mg PO BID 09/02/17 03/18/24 History Prasugrel [Effient] 10 mg PO DAILY 09/02/17 03/18/24 History Aspirin EC [Ecotrin Low Dose] 81 mg PO DAILY 09/04/19 03/18/24 History ALPRAZolam [Xanax] 0.25 mg PO TID PRN 11/01/23 03/18/24 History Rosuvastatin Calcium [Crestor] 40 mg PO HS 11/01/23 03/18/24 History Desvenlafaxine Succinate [Pristiq 50 mg PO DIRECTED 03/18/24 03/18/24 History ER] Diclofenac Sodium [Voltaren] 75 mg PO DIRECTED 03/18/24 03/18/24 History HYDROcodone/APAP 7.5-325MG [[place] 1 tab PO QID 03/18/24 03/18/24 History 7.5-325] Ibuprofen [Motrin] 800 mg PO TID PRN 03/18/24 03/18/24 History Ezetimibe [Zetia] 10 mg PO DAILY 30 Days #30 tab 03/19/24 Rx lisinopriL [Zestril] 20 mg PO DAILY 30 Days #30 tab 03/19/24 Rx Allergies Allergy/AdvReac Type Severity Reaction Status Date / Time amoxicillin [Amoxicillin] AdvReac thrush Verified 03/18/24 11:55 Penicillins AdvReac Thrush Verified 03/18/24 11:55 Physical Exam Vitals: Vital Signs Temp Pulse Pulse Resp BP BP Pulse Ox 03/19/24 08:52 98 03/19/24 07:00 97.8 F 95 18 119/75 97 03/19/24 02:00 97.7 F 52 L 17 112/67 95 03/18/24 19:29 97.8 F 60 16 124/75 98 03/18/24 17:50 98.3 F 98 15 116/74 98 03/18/24 16:35 61 16 121/78 98 03/18/24 11:50 77 18 110/64 96 Intake and Output 10/01/24 10/02/24 10/02/24 22:59 06:59 14:59 Other: # Voids 2 1 Weight 91.626 kg Results 03/19/24 04:16 03/19/24 04:16 Cardiac Enzymes 03/18/24 03/18/24 03/18/24 Range/Units 09:42 09:42 12:06 AST 23 (17-59) U/L Troponin I <0.012 <0.012 (0.000-0.034) ng/mL 03/18/24 03/19/24 Range/Units 15:19 04:16 AST 19 (17-59) U/L Troponin I <0.012 (0.000-0.034) ng/mL Coagulation 03/18/24 Range/Units 09:42 PT 10.0 (10.0-12.5) sec APTT 23.3 (22.0-30.0) sec Lipids 03/19/24 Range/Units 04:16 Triglycerides 171.00 H (0.00-149.00) mg/dL Cholesterol 181.00 (0.00-200.00) mg/dL HDL Cholesterol 46.20 (40.00-60.00) mg/dL Cholesterol/HDL Ratio 3.92 Ratio CBC 03/18/24 03/19/24 Range/Units 09:42 04:16 WBC 9.7 8.85 (3.8-10.6) k/uL RBC 4.31 4.46 (4.30-5.90) m/uL Hgb 12.4 L 12.5 L (13.0-17.5) gm/dL Hct 37.1 L 38.5 L (39.0-53.0) % Plt Count 270 242 (150-450) k/uL Comprehensive Metabolic Panel 03/18/24 03/19/24 Range/Units 09:42 04:16 Sodium 135 L 137 (137-145) mmol/L Potassium 3.6 4.5 (3.5-5.1) mmol/L Chloride 104 102 (98-107) mmol/L Carbon Dioxide 27 24.0 (22-30) mmol/L BUN 17 15.0 (9-20) mg/dL Creatinine 0.79 0.7 (0.66-1.25) mg/dL Glucose 109 H 90 (74-99) mg/dL Calcium 9.0 8.8 (8.4-10.2) mg/dL AST 23 19 (17-59) U/L ALT 20 16 (4-49) U/L Alkaline Phosphatase 65 72 (38-126) U/L Total Protein 6.4 6.1 L (6.3-8.2) g/dL Albumin 4.0 4.1 (3.5-5.0) g/dL Current Medications Generic Name Dose Route Start Last Admin Trade Name Freq PRN Reason Stop Dose Admin Hydrocodone Bitart/Acetaminophen 1 each 03/18/24 13:00 03/19/24 08:37 Hydrocodone/Apap 7.5-325mg 1 Each Tab PO 1 each QID VJ Administration Alprazolam 0.25 mg 03/18/24 12:00 Alprazolam 0.25 Mg Tab PO TID PRN Anxiety Aspirin 81 mg 03/19/24 09:00 03/19/24 08:37 Aspirin 81 Mg PO 81 mg DAILY [facility] Administration Atorvastatin Calcium 80 mg 03/18/24 21:00 03/18/24 20:47 Atorvastatin 80 Mg Tab PO 80 mg HS [facility] Administration Desvenlafaxine Succinate 50 mg 03/18/24 12:00 03/19/24 08:37 Desvenlafaxine Succinate 50 Mg Tab.Er.24h PO Not Given BID [facility] Heparin Sodium (Porcine) 5,000 unit 03/19/24 00:00 03/19/24 08:36 Heparin Sodium,Porcine 5,000 Unit/Ml 1 Ml Vial SQ Not Given Q8HR [facility] Lisinopril 40 mg 03/19/24 09:00 03/19/24 08:37 Lisinopril 20 Mg Tab PO 40 mg DAILY [facility] Administration Nitroglycerin 0.4 mg 03/18/24 11:44 Nitroglycerin Sl Tabs 0.4 Mg Tab SUBLINGUAL Q5M PRN Chest Pain Nitroglycerin 1 inch 03/18/24 12:00 03/19/24 05:03 Nitroglycerin Oint 1 Inch/Gm Packet TOPICAL Not Given Q6HR [facility] Pantoprazole Sodium 40 mg 03/18/24 21:00 03/19/24 08:37 Pantoprazole 40 Mg Tablet PO 40 mg BID [facility] Administration Prasugrel 10 mg 03/18/24 16:38 03/19/24 08:37 Prasugrel 10 Mg Tab PO 10 mg DAILY [facility] Administration Intake and Output 03/18/24 03/19/24 03/19/24 22:59 06:59 14:59 Other: # Voids 2 1 Weight 91.626 kg 03/19/24 04:16 03/19/24 04:16
[2024-03-20] MEDS ORDERED: lisinopriL 20 MG TAB PO SCH (09:00)
== END 2024-03-19 12:07 | disposition home or self-care (01) ==
LOC: EC 09:17 → 6NMEDSUR 11:46
PROVIDERS: ADMIT Student in an Organized Health Care Education/Training Program; ATTEND Student in an Organized Health Care Education/Training Program
DX: R07.89 Other chest pain (principal); I25.10 Atherosclerotic heart disease of native coronary artery without angina pectoris; I10 Essential (primary) hypertension; E78.5 Hyperlipidemia, unspecified; R00.1 Bradycardia, unspecified; D64.9 Anemia, unspecified; K21.9 Gastro-esophageal reflux disease without esophagitis; F41.9 Anxiety disorder, unspecified; F32.A Depression, unspecified; F43.10 Post-traumatic stress disorder, unspecified; I25.2 Old myocardial infarction; Z79.82 Long term (current) use of aspirin; Z79.02 Long term (current) use of antithrombotics/antiplatelets; Z79.899 Other long term (current) drug therapy; Z88.0 Allergy status to penicillin; Z87.891 Personal history of nicotine dependence; Z95.5 Presence of coronary angioplasty implant and graft; Z86.74 Personal history of sudden cardiac arrest; Z86.79 Personal history of other diseases of the circulatory system
CPT/HCPCS: 96365; 96366; 99285; 36415; 94760; 93005; 93306; 85379; 80061; 80053 ×2; 83735 ×2; 84484; 85025; 85027; 85610; 85730; 71046; G0378 ×2; J3475

== ENCOUNTER → 2024-03-21 | Outpatient (CLI) | payer OTHER ==
--- NOTE | 2024-03-21 13:20 | XR ---
EXAMINATION TYPE: XR Hip Complete LT DATE OF EXAM: 03/21/2024 1:00 PM INDICATION: Patient age:Male; 48 years old; Reason for study: S70.12XA S50.12XA S50.11XA; [facility]. COMPARISON: Left femur radiograph 03/18/2024 TECHNIQUE: The left hip was examined in the frontal and lateral projections . FINDINGS: No evidence of any acute osseous pathology, joint dislocation, or soft tissue swelling. The re is spurring of the greater trochanter redemonstrated. IMPRESSION: 1. No acute osseous pathology. 2. Spurring of the greater trochanter. [facility], , 03/21/2024 1:17 PM
--- NOTE | 2024-03-21 13:22 | XR ---
EXAMINATION TYPE: XR forearm bilateral DATE OF EXAM: 03/21/2024 1:00 PM INDICATION: Patient age:Male; 48 years old; Reason for study: S70.12XA S50.12XA S50.11XA; [facility]. COMPARISON: None TECHNIQUE: Bilateral forearms were examined in AP and lateral projections. FINDINGS: No acute osseous pathology, soft tissue swelling or joint dislocations are seen. Small deion ateral posterior olecranon enthesophytes. No radiopaque foreign bodies. IMPRESSION: No evidence of acute fracture or dislocation. [facility], , 03/21/2024 1:19 PM
== END | disposition home or self-care (01) ==
LOC: RADXRMAIN 12:40
PROVIDERS: ATTEND Emergency Medicine
DX: S70.12XA Contusion of left thigh, initial encounter (principal); S50.12XA Contusion of left forearm, initial encounter; S50.11XA Contusion of right forearm, initial encounter
CPT/HCPCS: 73502

== ENCOUNTER → 2024-03-24 | Outpatient (CLI) | payer OTHER ==
--- NOTE | 2024-03-24 17:08 | US ---
EXAMINATION TYPE: US venous doppler duplex UE RT DATE OF EXAM: 03/24/2024 COMPARISON: NONE CLINICAL INDICATION: Male, 48 years old with history of S50.11XD PAIN IN RT UE; pain right forearm, b ruisng right forearm. patient on blood thinner for 14 years, cardiac TECHNIQUE: Grayscale, color Doppler and spectral Doppler imaging of the upper extremity. SIDE PERFORMED: right FINDINGS: Right Arm: No evidence of DVT Grayscale, color doppler, spectral doppler imaging performed of the deep veins of the upper extremiti es. IMPRESSION: No evidence for deep vein thrombosis. [facility], Workstation: [employer] [id number], 03/24/2024 5:06 PM
== END | disposition home or self-care (01) ==
LOC: RADUSWWP 16:07
PROVIDERS: ATTEND Emergency Medicine
DX: S50.11XD Contusion of right forearm, subsequent encounter (principal)

== ENCOUNTER 2025-01-14 06:48 | Emergency (ER) | payer MEDICARE, BC ==
[2025-01-14 07:05] VITALS: TEMP 98.2
--- NOTE | 2025-01-14 07:28 | ED ---
General Adult HPI - General Chief complaint: Extremity Injury, Upper Stated complaint: Left shoulder pain Time Seen by Provider: 01/14/25 07:07 Source: patient, RN notes reviewed Mode of arrival: ambulatory Limitations: no limitations - History of Present Illness Initial comments: 49-year-old male with a history of CAD and [place] with stent placement presenting to the ER with complaints of left axillary pain described as a stabbing type of sensation with radiation down his left arm and into his left side of his chest that started this morning while he was in his car going to work. He states that the pain in his chest feels like he pulled a muscle and this is not reproducible on palpation or with movement stating that it feels like it is "internal". He also states that he began to experience left-sided jaw pain this morning. Endorses associated nausea with no reported emesis. He denies heart palpitations, difficulty breathing, peripheral edema, leg or calf. Over the past few weeks he has been experiencing exertional dyspnea - Related Data Home Medications Medication Instructions Recorded Confirmed Pantoprazole Sodium [Protonix] 40 mg PO BID 09/02/17 03/18/24 Prasugrel [Effient] 10 mg PO DAILY 09/02/17 03/18/24 Aspirin EC [Ecotrin Low Dose] 81 mg PO DAILY 09/04/19 03/18/24 ALPRAZolam [Xanax] 0.25 mg PO TID PRN 11/01/23 03/18/24 Rosuvastatin Calcium [Crestor] 40 mg PO HS 11/01/23 03/18/24 Desvenlafaxine Succinate [Pristiq 50 mg PO DIRECTED 03/18/24 03/18/24 ER] Diclofenac Sodium [Voltaren] 75 mg PO DIRECTED 03/18/24 03/18/24 HYDROcodone/APAP 7.5-325MG [[place] 1 tab PO QID 03/18/24 03/18/24 7.5-325] Ibuprofen [Motrin] 800 mg PO TID PRN 03/18/24 03/18/24 Previous Rx's Medication Instructions Recorded Ezetimibe [Zetia] 10 mg PO DAILY 30 Days #30 tab 03/19/24 lisinopriL [Zestril] 20 mg PO DAILY 30 Days #30 tab 03/19/24 Allergies Allergy/AdvReac Type Severity Reaction Status Date / Time amoxicillin [Amoxicillin] AdvReac thrush Verified 01/14/25 07:05 Penicillins AdvReac Thrush Verified 01/14/25 07:05 Review of Systems ROS Statement: Those systems with pertinent positive or pertinent negative responses have been documented in the HPI. ROS Other: All systems not noted in ROS Statement are negative. Past Medical History Past Medical History: Coronary Artery Disease (CAD), Chest Pain / Angina, Diabetes Mellitus, GERD/Reflux, Hypertension, Myocardial Infarction (AZ), Osteoa rthritis (OA) Additional Past Medical History / Comment(s): 07-14-15 admitted with stemi,cardiac arrest v-fib. other past med hx includes: KIDNEY STONES, DDD, PAST WORK INJURY 800 POUND I BEAM DROPPED ON PT- BROKEN BACK.BUT PT REFUSED SX, PT STATED THAT PER AN MRI HE HAD THAT NOW THERE ARE 3 TUMORS GROWING IN AREA OF INJURY Last Myocardial Infarction Date:: 2010, 07-14-15 History of Any Multi-Drug Resistant Organisms: None Reported Past Surgical History: Heart Catheterization With Stent Additional Past Surgical History / Comment(s): Two stents in 2010 and re-done 2013. 07-14-15 stent to rca Past Anesthesia/Blood Transfusion Reactions: No Reported Reaction Additional Past Anesthesia/Blood Transfusion Reaction / Comment(s): CLAUSTERPHOBIA Date of Last Stent Placement:: 2013 Past Psychological History: ADD/ADHD, Anxiety, Depression, PTSD Smoking Status: Former smoker Past Alcohol Use History: None Reported Past Drug Use History: None Reported - Past Family History Father Family Medical History: Coronary Artery Disease (CAD), Hyperlipidemia, Myocardial Infarction ([place]) Additional Family Medical History / Comment(s): Had 3 triple bypass surg Mother Family Medical History: Coronary Artery Disease (CAD) Additional Family Medical History / Comment(s): History of stents General Exam Limitations: no limitations Neck exam: Present: normal inspection. Absent: tenderness, meningismus, lymp hadenopathy Respiratory exam: Present: normal lung sounds bilaterally. Absent: respiratory distress, wheezes, rales, rhonchi, stridor Cardiovascular Exam: Present: regular rate, normal rhythm, normal heart sounds. Absent: systolic murmur, diastolic murmur, rubs, gallop, clicks GI/Abdominal exam: Present: soft, normal bowel sounds. Absent: distended, tenderness, guarding, rebound, rigid Extremities exam: Present: normal inspection, full ROM, normal capillary refill. Absent: tenderness, pedal edema, joint swelling, calf tenderness Back exam: Present: normal inspection Skin exam: Present: warm, dry, intact, normal color. Absent: rash Course Vital Signs 01/14/25 01/14/25 01/14/25 07:01 08:00 09:00 Temperature 98.2 F Pulse Rate 65 68 54 L Respiratory 18 20 20 Rate Blood Pressure 158/94 134/88 125/84 O2 Sat by Pulse 99 98 98 Oximetry Medical Decision Making - Medical Decision Making Was pt. sent in by a medical professional or institution (, PA, BREAKER MACHINE TENDER, urgent care, hospital, or [facility]...) When possible be specific @ -No Did you speak to anyone other than the patient for history (EMS, parent, family, police, friend...)? What history was obtained from this source @ -No Did you review nursing and triage notes (agree or disagree)? Why? @ -I reviewed and agree with nursing and triage notes Were old charts reviewed (outside hosp., previous admission, EMS record, old EKG, old radiological studies, urgent care reports/EKG's, [facility] records)? Report findings @ -No old charts were reviewed Differential Diagnosis (chest pain, altered mental status, abdominal pain women, abdominal pain men, vaginal bleeding, weakness, fever, dyspnea, syncope, headache, dizziness, GI bleed, back pain, seizure, CVA, palpatations, mental health, musculoskeletal)? @ -Differential Chest Pain: Stable Angina, Unstable Angina, STEMI, NSTEMI Aortic Dissection, Pneumothorax, Musculoskeletal, Esophageal Spasm GERD, Cholecystitis, Pancreatitis, Zoster, this is not meant to be an all-inclusive list. EKG interpreted by me (3pts min.). @ -Completed at 710 sinus bradycardia with a ventricular to 55, LA interval 145, QRS 103, QT 395, QTc 383. X-rays interpreted by me (1pt min.). @ -Chest x-ray no acute cardiopulmonary process or disease CT interpreted by me (1pt min.). @ -None done U/S interpreted by me (1pt. min.). @ -None done What testing was considered but not performed or refused? (CT, X-rays, U/S, labs)? Why? @ -None What meds were considered but not given or refused? Why? @ -Patient refused nitro stating that when he has taken this before it caused severe headache. Did you discuss the management of the patient with other professionals (professionals i.e. , PA, BREAKER MACHINE TENDER, lab, RT, psych nurse, social worker clinical, natural gas plant technician, teacher, chief financial officer, bilingual patient support caseworker)? Give summary @ -No Was smoking cessation discussed for >3mins.? @ -No Was critical care preformed (if so, how long)? @ -No Were there social determinants of health that impacted care today? How? (Homelessness, low income, unemployed, alcoholism, drug addiction, transportation, low edu. Level, literacy, decrease access to med. care, intermediate, rehab)? @ -No Was there de-escalation of care discussed even if they declined (Discuss DNR or withdrawal of care, Hospice)? DNR status @ -No What co-morbidities impacted this encounter? (DM, HTN, Smoking, COPD, CAD, Cancer, CVA, ARF, Chemo, Hep., AIDS, mental health diagnosis, sleep apnea, morbid obesity)? @ -None Was patient admitted / discharged? Hospital course, mention meds given and route, prescriptions, significant lab abnormalities, going to OR and other pertinent info. @ -Left AGAINST MEDICAL ADVICE. 49-year-old male presenting to the ER with complaints of left shoulder/chest pain. Patient is hypertensive on arrival with a blood pressure of 158/94. EKG sinus bradycardia with no ST segment changes. He is provided with aspirin and morphine for pain control. Chest x-ray is unremarkable. Patient's laboratory testing is unremarkable cardiac evaluation i ncluding troponin and BNP is unremarkable. With patient having an elevated heart score and chest pain recommend that he admitted to observation for cardiac evaluation and trend troponin. Patient has refused admission. Patient has signed AGAINST MEDICAL ADVICE paperwork. He states that he has department scheduled with his property utilization officer on Sunday. Case discussed with my attending Dr. Renee Undiagnosed new problem with uncertain prognosis? @ -No Drug Therapy requiring intensive monitoring for toxicity (Heparin, Nitro, Insulin, Cardizem)? @ -No Were any procedures done? @ -No Diagnosis/symptom? @ -chest pain, left shoulder pain Acute, or Chronic, or Acute on Chronic? @ -acute Uncomplicated (without systemic symptoms) or Complicated (systemic symptoms)? @ -complicated Side effects of treatment? @ -No Exacerbation, Progression, or Severe Exacerbation? @ -No Poses a threat to life or bodily function? How? (Chest pain, [place], [place], pneumonia, PE, COPD, DKA, ARF, appy, cholecystitis, CVA, Diverticulitis, Homicidal, Suicidal, threat to staff... and all critical care pts) @ -No - Lab Data Result diagrams: 01/14/25 07:49 01/14/25 07:49 Lab Results 01/14/25 01/14/25 01/14/25 Range/Units 07:49 07:49 07:49 WBC 6.41 (4.50-10.00) 10*3/uL RBC 4.68 (4.40-5.60) 10*6/uL Hgb 13.7 (13.0-17.0) g/dL Hct 40.0 (39.6-50.0) % MCV 85.5 (80.0-97.0) fL MCH 29.3 (27.0-32.0) pg MCHC 34.3 (32.0-37.0) g/dL Plt Count 258 (140-440) 10*3/uL MPV 9.6 (9.5-12.2) fL Immature Gran % (Auto) 0.2 % Neutrophils % 66.8 % Lymphocytes % 25.4 % Monocytes % 6.4 % Eosinophils % 0.9 % Basophils % 0.3 % Immature Gran # 0.01 (0.00-0.04) 10*3/uL Neutrophils # 4.28 (1.80-7.70) 10*3/uL Lymphocytes # 1.63 (0.90-5.00) 10*3/uL Monocytes # 0.41 (0.20-1.00) 10*3/uL Eosinophils # 0.06 (0.04-0.35) 10*3/uL Basophils # 0.02 (0.00-0.10) 10*3/uL PT 10.7 (10.0-12.5) sec INR 1.0 (<1.2) APTT 23.6 (22.0-30.0) sec Sodium 140 (137-145) mmol/L Potassium 3.9 (3.5-5.1) mmol/L Chloride 107 (98-107) mmol/L Carbon Dioxide 22 (22-30) mmol/L Anion Gap 11 mmol/L BUN 17 (9-20) mg/dL Creatinine 0.65 L (0.66-1.25) mg/dL Est GFR (CKD-EPI)AfAm >90 (>60 ml/min/1.73 sqM) Est GFR (CKD-EPI)NonAf >90 (>60 ml/min/1.73 sqM) Glucose 136 H (74-99) mg/dL Calcium 9.0 (8.4-10.2) mg/dL Magnesium 1.6 (1.6-2.3) mg/dL Total Bilirubin 1.9 H (0.2-1.3) mg/dL AST 21 (17-59) U/L ALT 14 (4-49) U/L Alkaline Phosphatase 77 (38-126) U/L Troponin I (0.000-0.034) ng/mL NT-Pro-B Natriuret Pep <20 pg/mL Total Protein 6.7 (6.3-8.2) g/dL Albumin 4.4 (3.5-5.0) g/dL Lipase 46 (23-300) U/L 01/14/ Range/Units 07:49 WBC (4.50-10.00) 10*3/uL RBC (4.40-5.60) 10*6/uL Hgb (13.0-17.0) g/dL Hct (39.6-50.0) % MCV (80.0-97.0) fL MCH (27.0-32.0) pg MCHC (32.0-37.0) g/dL Plt Count (140-440) 10*3/uL MPV (9.5-12.2) fL Immature Gran % (Auto) % Neutrophils % % Lymphocytes % % Monocytes % % Eosinophils % % Basophils % % Immature Gran # (0.00-0.04) 10*3/uL Neutrophils # (1.80-7.70) 10*3/uL Lymphocytes # (0.90-5.00) 10*3/uL Monocytes # (0.20-1.00) 10*3/uL Eosinophils # (0.04-0.35) 10*3/uL Basophils # (0.00-0.10) 10*3/uL PT (10.0-12.5) sec INR (<1.2) APTT (22.0-30.0) sec Sodium (137-145) mmol/L Potassium (3.5-5.1) mmol/L Chloride (98-107) mmol/L Carbon Dioxide (22-30) mmol/L Anion Gap mmol/L BUN (9-20) mg/dL Creatinine (0.66-1.25) mg/dL Est GFR (CKD-EPI)AfAm (>60 ml/min/1.73 sqM) Est GFR (CKD-EPI)NonAf (>60 ml/min/1.73 sqM) Glucose (74-99) mg/dL Calcium (8.4-10.2) mg/dL Magnesium (1.6-2.3) mg/dL Total Bilirubin (0.2-1.3) mg/dL AST (17-59) U/L ALT (4-49) U/L Alkaline Phosphatase (38-126) U/L Troponin I <0.012 (0.000-0.034) ng/mL NT-Pro-B Natriuret Pep pg/mL Total Protein (6.3-8.2) g/dL Albumin (3.5-5.0) g/dL Lipase (23-300) U/L Disposition Clinical Impression: Chest pain, Left shoulder pain, Left against medical advice Disposition: LEFT AGAINST MEDICAL ADVICE Condition: Undetermined Additional Instructions: Please return to the Emergency Department if symptoms worsen or any other concerns. Please follow-up as scheduled on Sunday with property utilization officer. Is patient prescribed a controlled substance at d/c from ED?: No Referrals: None,Stated [Primary Care Provider] - 1-2 days Time of Disposition: 09:27
[2025-01-14] MEDS: ASPIRIN 81 MG PO STA (07:52)
[2025-01-14] MEDS: MORPHINE SULFATE 4 MG/ML SYRINGE IVP STA (07:52)
[2025-01-14 08:05] LABS: RBC 4.68 10*6/uL (4.40-5.60); WBC 6.41 10*3/uL (4.50-10.00)
[2025-01-14 08:06] LABS: Basophils # (A) 0.02 10*3/uL (0.00-0.10); Basophils % (A) 0.3 %; Eosinophils # (A) 0.06 10*3/uL (0.04-0.35); Eosinophils % (A) 0.9 %; HCT 40.0 % (39.6-50.0); HGB 13.7 g/dL (13.0-17.0); Lymphocytes # (A) 1.63 10*3/uL (0.90-5.00); Lymphocytes % (A) 25.4 %; MCH 29.3 pg (27.0-32.0); MCHC 34.3 g/dL (32.0-37.0); MCV 85.5 fL (80.0-97.0); Monocytes # (A) 0.41 10*3/uL (0.20-1.00); Monocytes % (A) 6.4 %; Neutrophils # (A) 4.28 10*3/uL (1.80-7.70); Neutrophils % (A) 66.8 %; Platelet Count 258 10*3/uL (140-440); RDW 12.4 % (11.5-14.5)
[2025-01-14 08:15] LABS: INR 1.0 (<1.2); Partial Thromboplastin Time 23.6 sec (22.0-30.0); Prothrombin Time 10.7 sec (10.0-12.5)
--- NOTE | 2025-01-14 08:19 | XR ---
EXAMINATION TYPE: XR chest 2V DATE OF EXAM: 01/14/2025 8:15 AM COMPARISON: Chest radiographs from 03/18/2024 TECHNIQUE: XR chest 2V Frontal and lateral views of the chest. CLINICAL INDICATION:Male, 49 years old with history of Chest Pain; FINDINGS: Lungs/Pleura: There is no evidence of pleural effusion, focal consolidation, or pneumothorax. Pulmonary vascularity: Unremarkable. Heart/mediastinum: Cardiomediastinal silhouette is unremarkable. Musculoskeletal: No acute osseous pathology. IMPRESSION: No acute cardiopulmonary disease/process. [facility], , 01/14/2025 8:17 AM
[2025-01-14 08:32] LABS: ALT 14 U/L (4-49); AST 21 U/L (17-59); African American GFR (CKD) >90 (>60 ml/min/1.73 sqM); Albumin 4.4 g/dL (3.5-5.0); Alkaline Phosphatase 77 U/L (38-126); Anion Gap 11 mmol/L; Blood Urea Nitrogen 17 mg/dL (9-20); Calcium 9.0 mg/dL (8.4-10.2); Carbon Dioxide 22 mmol/L (22-30); Chloride 107 mmol/L (98-107); Glucose 136 mg/dL (74-99); Lipase 46 U/L (23-300); Magnesium 1.6 mg/dL (1.6-2.3); Non-African American GFR(CKD) >90 (>60 ml/min/1.73 sqM); Potassium 3.9 mmol/L (3.5-5.1); Sodium 140 mmol/L (137-145); Total Protein 6.7 g/dL (6.3-8.2)
[2025-01-14 08:40] LABS: NT-Pro-B-Type Natriuretic Pept <20 pg/mL
[2025-01-14 09:27] VITALS: BP 125/84; PULSE 54; RESP 20
== END 2025-01-14 09:38 | disposition other institution (70) ==
LOC: EC 06:48
DX: M25.512 Pain in left shoulder (principal); R07.9 Chest pain, unspecified; Z53.29 Procedure and treatment not carried out because of patient's decision for other reasons; I25.10 Atherosclerotic heart disease of native coronary artery without angina pectoris; Z95.5 Presence of coronary angioplasty implant and graft; Z87.891 Personal history of nicotine dependence; Z88.0 Allergy status to penicillin
CPT/HCPCS: 36415; 93005; 83880; 80053; 83690; 83735; 84484; 85025; 85610; 85730; 71046; 99285; 96374; J2270